=== PATIENT | female | born 1940 | race Caucasian/White ===

== ENCOUNTER → 2018-02-20 11:03 | Outpatient (CLI) | payer MEDICARE, OTHER, SELFPAY ==
--- NOTE | 2018-02-20 11:09 | DI.RAD.S_ITS ---
PROCEDURE: PAIN L/SI FACET INJ/BLK 1STL INDICATIONS: bilateral L5 -S1 facet joint injection FINDINGS: Fluoroscopic spot filming was performed to verify placement of spinal needles at the L5-S1 right and left side levels, as also labeled on the films. Appropriate location(s) of the needle tip(s) was confirmed by injection of iodinated contrast. IMPRESSION: Bilateral successful L5-S1 facet joint localization. Dictated by: Romulo Werner M.D. on 02/20/2018 at 13:22 Approved by: Romulo Werner M.D. on 02/20/2018 at 13:23
[2018-02-20 11:45] VITALS: BP 155/68; PULSE 68; RESP 16; TEMP 36.1; O2SAT 99
--- NOTE | 2018-02-20 12:07 | PM.PROC.1 ---
Procedures Date/Time Date of procedure: 02/20/18 Time of procedure: 12:30 General Procedure description: PREOP DIAGNOSIS 1. FACET ARTHROPATHY, 2. AXIAL LBP, 3. MULTILEVEL DDD, POST OP DIAGNOSIS 1. FACET ARTHROPATHY, 2. AXIAL LBP, 3. MULTILEVEL DDD, PROCEDURES 1. FLUORSCOPICALLY GUIDED CONTRAST CONTROLLED FACET JOINT INJECTIONS BILATERAL L5/S1 PHUSICIAN: DO TAMIA Do Kaela is referred by Dr. Hines for treatment of Axial LBP FINDINGS Multilevel Facet Arthropathy with Clinically significant axial LBP DESCRIPTION OF PROCEDURE Fluoroscopically guided, contrast-controlled bilateral L5/S1 facet joint injections. Following denial of allergy and review of potential side effects and complications, including, but not necessarily limited to, infection, allergic reaction, local tissue breakdown, stroke, temporary or permanent nerve injury, paralysis, and possible , the patient indicated that the patient understood and agreed to proceed. An informed consent document was signed by the patient, witnessed by a nurse, and placed in the patient's chart. Additionally, other treatment options including medications, modalities, and physical therapy were reviewed with the patient. In the prone position, following sterile prep and drape of the lumbar region, the posterior aspect of the L5/S1 facet joints were identified fluoroscopically. The skin was anesthetized via a 25-gauge 1.5-inch needle with 1% lidocaine solution into the corresponding facet joints. At this point, a 22-gauge 5-inch spinal needle was atraumatically introduced and advanced under fluoroscopic guidance into the corresponding facet joints. Following negative aspiration, injections of approximately 0.2-cc of Isovue 200 confirmed interarticular placement without vascular uptake. The identical procedure was then performed at the L5/S1 facet joints on the left. Radiological data, including multiple fluoroscopic views of the lumbosacral spine, reveal a spinal needle at the L5/S1 facet joints bilaterally. Subsequent views show flow of contrast material both superiorly and inferiorly within the joint space without vascular or intrathecal uptake. At this point, a total of 0.5 cc including a mixture of 0.25 cc Marcaine and 0.25 cc betamethasone was injected without complication into each of the corresponding facet joints. The patient was then transferred to the recovery area where they were observed for an appropriate period of time after the injection. The patient reported a VAS score of 7 prior to the procedure and a post-procedure VAS of 0. Total Fluoroscopy Time: 21.0 seconds POST OP INSTRUCTIONS The patient was provided a Pain Log to continue to record their response to the target-specific procedure prior to follow-up visit with their referring physician. Additionally, specific post-injection care instructions and a contact number to our office were provided if concerns arise regarding possible complications associated with the procedure are suspected. Irwin Merino DO Complications: none
[2018-02-20 12:19] VITALS: BP 129/72; PULSE 73; RESP 16; O2SAT 99
[2018-02-20 12:24] VITALS: BP 152/80; PULSE 74; O2SAT 99
[2018-02-20 12:46] VITALS: BP 123/74; PULSE 76; RESP 16; O2SAT 100
== END ==
PROVIDERS: Family Provider Family Medicine; PCP Family Medicine; Visit Provider Physical Medicine & Rehabilitation
DX: M46.86 Other specified inflammatory spondylopathies, lumbar region (principal); M51.36 Other intervertebral disc degeneration, lumbar region; Z98.1 Arthrodesis status; M96.1 Postlaminectomy syndrome, not elsewhere classified; M47.816 Spondylosis without myelopathy or radiculopathy, lumbar region
CPT/HCPCS: 64493; J0702

== ENCOUNTER 2018-03-13 07:43 | Outpatient (CLI) | payer MEDICARE, OTHER, SELFPAY ==
--- NOTE | 2018-03-13 07:45 | DI.RAD.S_ITS ---
PROCEDURE: PAIN L/SI FACET INJ/BLK 1STL INDICATIONS: 77 year-old female undergoing bilateral L5-S1 nerve root injections. FINDINGS: Fluoroscopic spot filming was performed to verify placement of spinal needles at the right and left L5-S1 level(s), as labeled on the films. Appropriate location(s) of the needle tip(s) was confirmed by injection of iodinated contrast. Bilateral posterior lumbar spine fixation hardware is present. IMPRESSION: Fluoroscopic guidance for bilateral L5-S1 nerve root injections. Dictated by: John Page M.D. on 03/13/2018 at 17:31 Approved by: John Page M.D. on 03/13/2018 at 17:31
[2018-03-13 08:17] VITALS: BP 122/70; PULSE 86; RESP 18; TEMP 36.3; O2SAT 99
--- NOTE | 2018-03-13 08:49 | PM.PROC.1 ---
Procedures Date/Time Date of procedure: 03/13/18 Time of procedure: 08:50 General Procedure description: POST OP DIAGNOSIS 1. FACET ARTHROPATHY PROCEDURES 1. BILATERAL L5 AND S1 MB BLOCKS PHYSICIAN: DO TAMIA Do is referred by Dr. Hiens for treatment of Bilateral Axial LBP. DESCRIPTION OF PROCEDURE Fluoroscopically guided, contrast-controlled bilateral L5 AND S1 medial branch blocks with 0.5cc of 0.5% Marcaine. Following denial of allergy and review of potential side effects and complications, including, but not necessarily limited to, infection, allergic reaction, local tissue breakdown, nerve injury, paralysis, stroke and possible , the patient indicated that the patient understood and agreed to proceed. An informed consent document was signed by the patient, witnessed by a nurse, and placed in the patient's chart. In the prone position, following sterile prep and drape of the lumbar region, the right L3, L4 AND L5 anatomical location of the medial branch of the dorsal ramus was identified fluoroscopically. Subsequently an anesthetic skin wheal using 1% lidocaine solution was initiated at each of the anatomical spots. Subsequently then a 22-gauge 3.5-inch spinal needle was atraumatically introduced and advanced under fluoroscopic guidance at each of the corresponding sites at the right L5 AND S1 MB. After negative aspiration, 0.2 cc of Isovue 200 was injected, confirming placement without vascular or intrathecal uptake. Subsequently then 0.5 cc of 0.5% Marcaine solution was injected at each of the corresponding sites at the Right L5 and S1 medial branch locations. The identical procedure was replicated on the left. The patient tolerated the procedure well without signs or symptoms of complications. Post-procedure, the patient was monitored initiating provocative activities to measure the amount of relief from block of the facetogenic pain. The patient reported a VAS of 7 prior to the procedure and a post-procedure VAS of 1. It has been a pleasure to assist in the diagnostic and therapeutic care of your patient. Total Fluoroscopy Time: 24.8 seconds Total Conscious Sedation Time: 24min POST OP INSTRUCTIONS The patient was provided with a Pain Log to complete over the next several hours and subsequent days prior to the patient's follow up with the ordering physician. If the patient has mechanical design engineer products relief to the solution applied, then they may be a candidate for medial branch rhizotomy. The patient is aware, was provided, once again, with a Pain Log and will follow up with the referring physician for review and clinical correlation Irwin Merino DO Complications: none
[2018-03-13 08:50] VITALS: BP 147/84; PULSE 84; RESP 20; O2SAT 99
[2018-03-13 09:00] VITALS: BP 138/74; PULSE 85; RESP 20; O2SAT 97
[2018-03-13 09:05] VITALS: BP 165/89; PULSE 86; RESP 20; O2SAT 99
[2018-03-13 09:10] VITALS: BP 134/74; PULSE 86; RESP 20; O2SAT 98
[2018-03-13] MEDS: LIDOCAINE 1% 30 ML INJ INJ (09:10)
[2018-03-13] MEDS: IOPAMIDOL 15 ML VIAL 3 ML INJ (09:10)
[2018-03-13] MEDS: BUPIVACAINE 0.5% (PF) 30 ML VIAL 5 ML INJ (09:10)
[2018-03-13] MEDS: BETAMETHASONE 30 MG/5 ML MDV 12 MG INJ (09:10)
--- NOTE | 2018-03-13 09:18 | P.PCN_ITS ---
Procedures Date/Time Date of procedure: 03/13/18 Time of procedure: 08:50 General Procedure description: POST OP DIAGNOSIS 1. FACET ARTHROPATHY PROCEDURES 1. BILATERAL L5 AND S1 MB BLOCKS PHYSICIAN: DO TAMIA Do is referred by Dr. Hines for treatment of Bilateral Axial LBP. DESCRIPTION OF PROCEDURE Fluoroscopically guided, contrast-controlled bilateral L5 AND S1 medial branch blocks with 0.5cc of 0.5% Marcaine. Following denial of allergy and review of potential side effects and complications, including, but not necessarily limited to, infection, allergic reaction, local tissue breakdown, nerve injury, paralysis, stroke and possible , the patient indicated that the patient understood and agreed to proceed. An informed consent document was signed by the patient, witnessed by a nurse, and placed in the patient's chart. In the prone position, following sterile prep and drape of the lumbar region, the right L3, L4 AND L5 anatomical location of the medial branch of the dorsal ramus was identified fluoroscopically. Subsequently an anesthetic skin wheal using 1% lidocaine solution was initiated at each of the anatomical spots. Subsequently then a 22-gauge 3.5-inch spinal needle was atraumatically introduced and advanced under fluoroscopic guidance at each of the corresponding sites at the right L5 AND S1 MB. After negative aspiration, 0.2 cc of Isovue 200 was injected, confirming placement without vascular or intrathecal uptake. Subsequently then 0.5 cc of 0.5% Marcaine solution was injected at each of the corresponding sites at the Right L5 and S1 medial branch locations. The identical procedure was replicated on the left. The patient tolerated the procedure well without signs or symptoms of complications. Post-procedure, the patient was monitored initiating provocative activities to measure the amount of relief from block of the facetogenic pain. The patient reported a VAS of 7 prior to the procedure and a post-procedure VAS of 1. It has been a pleasure to assist in the diagnostic and therapeutic care of your patient. Total Fluoroscopy Time: 24.8 seconds Total Conscious Sedation Time: 24min POST OP INSTRUCTIONS The patient was provided with a Pain Log to complete over the next several hours and subsequent days prior to the patient's follow up with the ordering physician. If the patient has speech scientist relief to the solution applied, then they may be a candidate for medial branch rhizotomy. The patient is aware , was provided, once again, with a Pain Log and will follow up with the referring physician for review and clinical correlation Irwin Merino DO Complications: none
== END 2018-03-13 09:51 | disposition home or self-care (01) ==
PROVIDERS: Family Provider Family Medicine; PCP Family Medicine; Visit Provider Physical Medicine & Rehabilitation
DX: M47.816 Spondylosis without myelopathy or radiculopathy, lumbar region (principal)
CPT/HCPCS: 64493; J0702

== ENCOUNTER 2018-05-15 07:44 | Outpatient (CLI) | payer MEDICARE, OTHER, SELFPAY ==
[2018-05-15] VITALS (16 sets, daily range): BP systolic 64–145; BP diastolic 41–107; PULSE 63–100; RESP 15–17; TEMP 36.3; O2SAT 92–100
--- NOTE | 2018-05-15 07:45 | DI.RAD.S_ITS ---
PROCEDURE: PAIN L/S MED/LAT N RFA BILAT INDICATIONS: Recalcitrant facet arthropathy status post lumbar fusion FINDINGS: Fluoroscopic spot filming was performed to verify placement of spinal needles at the left L4-5 and left L5-S1 level(s), as labeled on the films. Appropriate location(s) of the needle tip(s) was confirmed by injection of iodinated contrast. IMPRESSION: Successful needle localization for left sided RFA procedure at the left L4-5 and left L5-S1 levels. Dictated by: Romulo Werner M.D. on 05/15/2018 at 13:27 Approved by: Romulo Werner M.D. on 05/15/2018 at 13:36
--- NOTE | 2018-05-15 08:45 | PM.PROC.1 ---
Procedures Date/Time Date of procedure: 05/15/18 Time of procedure: 08:45 General Procedure description: Procedure Note PREOP DIAGNOSIS 1. RECALCITRANT FACET ARTHROPATHY, POST OP DIAGNOSIS 1. RECALCITRANT FACET ARTHROPATHY, PROCEDURES 1. BILATERAL L5 MEDIAL BRANCH RADIOFREQUENCY NEUROTOMY AND BILATERAL S1 DORSAL RAMUS BRANCH RADIOFREQUENCY NEUROTOMY. PHYSICIAN: Irwin Merino, DO INDICATIONS Kaela is referred by for treatment of facet arthropathy. DESCRIPTION OF PROCEDURE Bilateral L5 medial branch radiofrequency neurotomy and bilateral S1 dorsal ramus branch radiofrequency neurotomy under fluoroscopy with conscious sedation. The patient is well known to this clinic having undergone previous facet injections with good but temporary relief. The patient has experienced appropriate, concordant relief with previous facet and median branch blocks but the patient's pain has been recalcitrant to further conservative measures. Therefore, based upon the patient's relief and persistent symptoms, the patient is considered an appropriate candidate for facet rhizotomy. All of the patient's questions regarding the risks versus benefits of the procedure, including, but not limited to, bleeding, infection, temporary as well as lasting nerve injury, paralysis, stroke, and , as well treatment alternatives were answered to satisfaction. After obtaining informed consent, denial of pertinent drug allergies, as well as being made aware of the potential risks of bleeding, infection, spinal cord trauma, paralysis, temporary and permanent nerve damage, seizure, stroke, and possible , the patient was brought to the fluoroscopy suite and positioned prone on the fluoroscopy table. The lumbar region was prepped with Betadine and covered with a fenestrated drape in the usual sterile fashion. Appropriate monitors applied including pulse oximeter, pulse, and blood pressure for regular monitoring throughout the procedure. After review of previous anaesthesic history and IV conscious sedation the patient was deemed safe to proceed with todays procedure with IV conscious sedation as ASA class II designation. Safety time-out was performed to confirm patient ID, procedure to be performed and site of procedure. IV sedation was accomplished with a combination of 4mg was administered by the RN after DO order, titrated to patient comfort during the course of the procedure while the patient remained responsive to all verbal commands. After local infiltration using 1% lidocaine, under fluoroscopic guidance, a 10-cm RF insulated needle with a 10-mm active tip was positioned parallel to the junction of the bilateral sacral ala and the superior articulating process where the S1 dorsal ramus resides. Needle placement was confirmed with motor stimulation of .5v on the right; motor stimulation of .6v on the left, which produced local stimulation without radicular component. The stimulation was then increased to 1.5v with, once again, only local multifidus stimulation without radicular component. This was then followed by two discreet lesions performed at 80 degrees Celsius for 90 seconds each. The needle was then removed and the identical procedure was performed along the length of the bilateral L5 medial branch with motor stimulation at .7v on the right; motor stimulation at .6v on the left. The procedure tolerated the procedure well without signs or symptoms of complications prior to transfer to the recovery area continued monitoring without incident. The patient was then transferred to the recovery area where they were observed for an appropriate period of time after the injection. The patient reported a VAS score of 9 prior to the procedure and a post-procedure VAS of 0. Total Fluoroscopy Time: 32.1 seconds Total Conscious Sedation Time: 46min POST OP INSTRUCTIONS The patient was provided a Pain Log to continue to record the patient's response to the target-specific procedure prior to the patient's follow-up visit with the referring physician. Additionally, specific post-injection care instructions and a contact number to our office were provided if concerns arise regarding possible complications associated with the procedure are suspected. Irwin Merino DO Complications: none
--- NOTE | 2018-05-15 08:49 | P.PCN_ITS ---
Procedures Date/Time Date of procedure: 05/15/18 Time of procedure: 08:45 General Procedure description: Procedure Note PREOP DIAGNOSIS 1. RECALCITRANT FACET ARTHROPATHY, POST OP DIAGNOSIS 1. RECALCITRANT FACET ARTHROPATHY, PROCEDURES 1. BILATERAL L5 MEDIAL BRANCH RADIOFREQUENCY NEUROTOMY AND BILATERAL S1 DORSAL RAMUS BRANCH RADIOFREQUENCY NEUROTOMY. PHYSICIAN: Irwin Merino, DO INDICATIONS Kaela is referred by for treatment of facet arthropathy. DESCRIPTION OF PROCEDURE Bilateral L5 medial branch radiofrequency neurotomy and bilateral S1 dorsal ramus branch radiofrequency neurotomy under fluoroscopy with conscious sedation. The patient is well known to this clinic having undergone previous facet injections with good but temporary relief. The patient has experienced appropriate, concordant relief with previous facet and median branch blocks but the patient's pain has been recalcitrant to further conservative measures. Therefore, based upon the patient's relief and persistent symptoms, the patient is considered an appropriate candidate for facet rhizotomy. All of the patient' s questions regarding the risks versus benefits of the procedure, including, but not limited to, bleeding, infection, temporary as well as lasting nerve injury, paralysis, stroke, and , as well treatment alternatives were answered to satisfaction. After obtaining informed consent, denial of pertinent drug allergies, as well as being made aware of the potential risks of bleeding, infection, spinal cord trauma, paralysis, temporary and permanent nerve damage, seizure, stroke, and possible , the patient was brought to the fluoroscopy suite and positioned prone on the fluoroscopy table. The lumbar region was prepped with Betadine and covered with a fenestrated drape in the usual sterile fashion. Appropriate monitors applied including pulse oximeter, pulse, and blood pressure for regular monitoring throughout the procedure. After review of previous anaesthesic history and IV conscious sedation the patient was deemed safe to proceed with todays procedure with IV conscious sedation as ASA class II designation. Safety time-out was performed to confirm patient ID, procedure to be performed and site of procedure. IV sedation was accomplished with a combination of 4mg was administered by the RN after DO order , titrated to patient comfort during the course of the procedure while the patient remained responsive to all verbal commands. After local infiltration using 1% lidocaine, under fluoroscopic guidance, a 10- cm RF insulated needle with a 10-mm active tip was positioned parallel to the junction of the bilateral sacral ala and the superior articulating process where the S1 dorsal ramus resides. Needle placement was confirmed with motor stimulation of .5v on the right; motor stimulation of .6v on the left, which produced local stimulation without radicular component. The stimulation was then increased to 1.5v with, once again, only local multifidus stimulation without radicular component. This was then followed by two discreet lesions performed at 80 degrees Celsius for 90 seconds each. The needle was then removed and the identical procedure was performed along the length of the bilateral L5 medial branch with motor stimulation at .7v on the right; motor stimulation at .6v on the left. The procedure tolerated the procedure well without signs or symptoms of complications prior to transfer to the recovery area continued monitoring without incident. The patient was then transferred to the recovery area where they were observed for an appropriate period of time after the injection. The patient reported a VAS score of 9 prior to the procedure and a post- procedure VAS of 0. Total Fluoroscopy Time: 32.1 seconds Total Conscious Sedation Time: 46min POST OP INSTRUCTIONS The patient was provided a Pain Log to continue to record the patient's response to the target-specific procedure prior to the patient's follow-up visit with the referring physician. Additionally, specific post-injection care instructions and a contact number to our office were provided if concerns arise regarding possible complications associated with the procedure are suspected. Irwin Merino DO Complications: none
[2018-05-15] MEDS: MIDAZOLAM 5 MG/5 ML VIAL IV (09:04)
[2018-05-15] MEDS: LIDOCAINE 1% 20 ML INJ INJ (09:30)
[2018-05-15] MEDS: BUPIVACAINE 0.5% (PF) VIAL 5 ML INJ (09:30)
[2018-05-15] MEDS: ONDANSETRON 4 MG/2 ML INJ IV (09:44)
[2018-05-15] MEDS: SODIUM CHLORIDE 0.9% 1,000 ML 1000 ML IV (10:40)
== END 2018-05-15 11:30 ==
LOC: RAD 07:45
PROVIDERS: Family Provider Family Medicine; PCP Family Medicine; Visit Provider Physical Medicine & Rehabilitation
DX: M47.816 Spondylosis without myelopathy or radiculopathy, lumbar region (principal); M48.061 Spinal stenosis, lumbar region without neurogenic claudication; Z98.1 Arthrodesis status
CPT/HCPCS: 64635; 99152; 99153; J2250; J2405

== ENCOUNTER → 2018-08-30 17:25 | Outpatient (CLI) | payer MEDICARE, OTHER, SELFPAY ==
--- NOTE | 2018-08-30 17:28 | DI.MRI.S_ITS ---
PROCEDURE: MR CERVICAL SPINE WO CON INDICATIONS: radiculopathy TECHNIQUE: Noncontrast sagittal T1 spin echo and T2 fast spin echo, sagittal STIR, foraminal oblique sagittal T2 fast spin echo, and axial gradient echo or T2 fast spin echo through the cervical spine. COMPARISON: None. FINDINGS: Image quality: Excellent. Alignment and Curvature: There is loss of normal cervical lordosis. There is mild, grade 1 anterolisthesis of C4 on C5. Bone Marrow: Marrow demonstrates normal overall signal. There is mild reactive signal within the endplates adjacent to the C4-C5, C5-C6, C6-C7, and C7-T1 intervertebral discs. Spinal Cord: Visualized spinal cord has normal size and signal. No cerebellar tonsillar herniation. Paraspinous Soft Tissues: No paravertebral masses. Prevertebral soft tissues are normal in thickness. C2-C3: Moderate disc desiccation. Mild diffuse disc bulge. Mild bilateral facet hypertrophy. Mild canal stenosis. Mild right foraminal stenosis. No left foraminal stenosis. C3-C4: Moderate disc desiccation. Mild diffuse disc bulge. Mild bilateral facet and uncovertebral hypertrophy. Mild canal stenosis. Mild bilateral foraminal stenosis. C4-C5: Moderate disc height loss and desiccation. Moderate diffuse disc bulge/osteophyte. Mild bilateral facet and uncovertebral hypertrophy. Severe canal stenosis. Mild cord flattening. Severe right and moderate left foraminal stenosis. C5-C6: Moderate disc height loss and desiccation. Moderate diffuse disc bulge. Mild bilateral facet and uncovertebral hypertrophy. Severe canal stenosis. Mild cord flattening. Moderate foraminal stenosis bilaterally. C6-C7: Moderate disc and loss and desiccation. Moderate diffuse disc bulge. Mild bilateral facet and uncovertebral hypertrophy. Severe canal stenosis. Mild cord flattening. Moderate foraminal stenosis bilaterally. C7-T1: Moderate disc height loss and desiccation. Moderate diffuse disc bulge. Mild bilateral facet and uncovertebral hypertrophy. Moderate to severe canal stenosis. Mild left and moderate right foraminal stenosis. IMPRESSION: 1. Multilevel degenerative disc and facet disease, as well as uncovertebral hypertrophy. 2. Multilevel canal stenoses, worst at C4-C5, C5-C6, and C6-C7, where there is mild cord flattening present. 3. Multilevel foraminal stenoses, worse on the right at C4-C5, where there is severe foraminal stenosis present. Dictated by: Lucrecia Javier M.D. on 09/02/2018 at 8:25 Approved by: Lucrecia Javier M.D. on 09/02/2018 at 8:35
== END ==
PROVIDERS: PCP Internal Medicine; Visit Provider Physical Medicine & Rehabilitation
DX: M50.11 Cervical disc disorder with radiculopathy, high cervical region (principal); M48.02 Spinal stenosis, cervical region
CPT/HCPCS: 72141

== ENCOUNTER 2018-09-10 09:37 | Outpatient (CLI) | payer MEDICARE, OTHER, SELFPAY ==
[2018-09-10] VITALS (12 sets, daily range): BP systolic 83–166; BP diastolic 49–99; PULSE 81–109; RESP 16–18; O2SAT 94–99
--- NOTE | 2018-09-10 09:39 | DI.RAD.S_ITS ---
PROCEDURE: PAIN C/T INTERLAMINAR INJECT INDICATIONS: RADICULOPATHY FINDINGS: Fluoroscopic spot filming was performed to verify placement of spinal needles at the C6-C7 level(s), as labeled on the films. Appropriate location(s) of the needle tip(s) was confirmed by injection of iodinated contrast. Dictated by: Yifan Yousif M.D. on 09/11/2018 at 9:03 Approved by: Yifan Yousif M.D. on 09/11/2018 at 9:04
--- NOTE | 2018-09-10 09:39 | DI.RAD.S_ITS ---
PROCEDURE: XR CERVICAL SPINE 4V OR 5V INDICATIONS: Cervical radiculopathy TECHNIQUE: 5 views of the cervical spine acquired. COMPARISON: None. FINDINGS: Bones: No fractures or dislocations to the T1-2 level. There is straightening of the normal cervical lordosis. Degenerative endplate changes are noted at C4-5, C5-6 and C6-7 levels. Bilateral neural foramina narrowing at C5-6 and C6-7 levels are seen on oblique images. Soft tissues: No prevertebral soft tissue swelling. IMPRESSION: Degenerative disc disease in mid to lower cervical spine with suggestion of bilateral neural foramina narrowing at C5-6 and C6-7 levels. No acute compression fracture or spondylolisthesis. Dictated by: Sheng Uriostegui M.D. on 09/10/2018 at 12:00 Approved by: Sheng Uriostegui M.D. on 09/10/2018 at 12:01
[2018-09-10] MEDS: MIDAZOLAM 5 MG/5 ML VIAL IV (10:55)
[2018-09-10] MEDS: LIDOCAINE 1% 20 ML INJ 5 ML INJ (11:03)
[2018-09-10] MEDS: IOPAMIDOL 15 ML VIAL 3 ML INJ (11:03)
--- NOTE | 2018-09-10 11:12 | PC.NURSE ---
ASSISTING PT OFF TABLE AND TRANSPORTING TO POST PROC AREA IN STABLE CONDITION
--- NOTE | 2018-09-10 11:14 | PM.PROC.1 ---
Procedures Date/Time Date of procedure: 09/10/18 Time of procedure: 11:14 General Procedure description: PREOP DIAGNOSIS 1. CERVICAL STENOSIS, 2. CERVICAL HNP WITH UPPER EXTREMITY RADICULAR FEATURES, POST OP DIAGNOSIS 1. CERVICAL STENOSIS, 2. CERVICAL HNP WITH UPPER EXTREMITY RADICULAR FEATURES, PROCEDURES 1. FLUORSCOPICALLY GUIDED CONTRAST CONTROLLED INTERLAMINAR EPIDURAL STEROID INJECTION - C6/7 TL RICHELLE PHYSICIAN: Irwin Merino, DO INDICATIONS Kaela is referred by Dr. Bobo for treatment of Cervical HNP with Upper Extremity Paresthesias. FINDINGS Cervical Stenosis due to disc deterioration and nerve root irritation and nerve root irritation DESCRIPTION OF PROCEDURE Fluoroscopically guided, contrast-controlled C6/7 translaminar epidural steroid injection with conscious sedation. Following denial of allergy and review of potential side effects and complications, including, but not necessarily limited to, infection, allergic reaction, local tissue breakdown, temporary as well as permanent nerve injury, stroke, paralysis, and possible , the patient indicated that patient understood and agreed to proceed. An informed consent document was signed by the patient, witnessed by a nurse, and placed in the patient's chart. Additionally, other treatment options including modalities, medications, and physical therapy were reviewed with the patient. After review of previous anaesthesic history and IV conscious sedation the patient was deemed safe to proceed with todays procedure with IV conscious sedation as ASA class II designation. Safety time-out was performed to confirm patient ID, procedure to be performed and site of procedure. IV sedation was accomplished with a combination of 3mg of Versed administered by the RN after DO order, titrated to patient comfort during the course of the procedure while the patient remained responsive to all verbal commands. In the prone position, following sterile prep and drape of the cervical region, the C6/7 translaminar space was identified fluoroscopically. The skin was anesthetized via a 25-gauge 1.5-inch needle with 1% lidocaine solution. At this point, a 25-gauge, 2.5-inch short bevel spinal needle was atraumatically introduced and advanced under fluoroscopic guidance into epidural space at the C6/7 translaminar space. Depth was confirmed on lateral view. Radiological data, including multiple fluoroscopic views of the cervical spine, reveal a spinal needle at the C6/7 translaminar space. Lateral views then show placement of the needle in the epidural space. Subsequent views show contrast material flowing superiorly and inferiorly in the epidural space. DSA fluoroscopy with live contrast injection, once again, confirmed no vascular or intrathecal uptake. At this point, using loss of resistance technique with saline and air, the epidural space was entered. Following negative aspiration, injection of approximately 1.5 cc of Isovue-200 with live fluoroscopy in the AP view confirmed epidural flow in the epidural space without vascular or intrathecal uptake observed. Subsequently, a test dose of 1 cc of 1% lidocaine solution was injected and patient was observed for two minutes without signs or symptoms of complications, including abdominal pain, shortness of breath, bilateral upper or lower extremity weakness, nausea and vomiting, prior to steroid injection. At this point, 3 cc or 30 mg of dexamethasone was then injected without incident. The patient tolerated the procedure well without signs or symptoms of complications prior to being transferred to the recovery area for further monitoring, The patient was then transferred to the recovery area where they were observed for an appropriate period of time after the injection. The patient reported a VAS score of 6 prior to the procedure and a post-procedure VAS of 0. Total Fluoroscopy Time: 37.0 seconds Total Conscious Time: 24min POST OP INSTRUCTIONS The patient was provided a Pain Log to continue to record their response to the target-specific procedure prior to follow-up visit with the referring provider. Additionally, specific post-injection care instructions and a contact number to our office were provided if concerns arise regarding possible complications associated with the procedure are suspected. Irwin Merino, Complications: none
[2018-09-10] MEDS: DEXAMETHASONE 10 MG/ML VIAL 30 MG INJ (11:24)
--- NOTE | 2018-09-10 12:39 | PC.NURSE ---
pt had episode in xray where she got dizzy after being on the table. she reports she's had that in the past. checked blood sugar/115. pt doing better after returned to pre procedure room. dr. denny and Millie RN aware. pt able to have procedure. tolerated well. pt able to ambulate after procedure prior to discharge and doing well. She took wheelchair to car with son Romulo.
--- NOTE | 2018-09-11 11:31 | PC.NURSE ---
Called pt for Follow Up and she is doing great. She only had one question she forgot to ask Dr. Merino and that was whether or not to continue PT. I will verify that with him and get back with the patient.
== END 2018-09-10 12:01 ==
LOC: RAD 09:38
PROVIDERS: PCP Internal Medicine; Visit Provider Physical Medicine & Rehabilitation
DX: M48.02 Spinal stenosis, cervical region (principal); M50.123 Cervical disc disorder at C6-C7 level with radiculopathy; R20.2 Paresthesia of skin
CPT/HCPCS: 62321; 72050; 82962; 99152; J1100; J2250

== ENCOUNTER 2019-03-21 08:26 | Inpatient (IN) | payer MEDICARE, OTHER, SELFPAY ==
[2019-03-18 13:32] VITALS: BMI 41.7
[2019-03-21] VITALS (20 sets, daily range): BP systolic 119–173; BP diastolic 52–101; PULSE 71–105; RESP 12–21; TEMP 35.7–36.9; O2SAT 91–99; BMI 41.2
--- NOTE | 2019-03-21 | DI.RAD.S_ITS ---
PROCEDURE: XR CERVICAL SPINE 2V OR 3V INDICATIONS: ACDF POSTERIOR FUSION TECHNIQUE: 3 view(s) of the cervical spine were acquired. COMPARISON: [facility], , XR CERVICAL SPINE 4V OR 5V, 09/10/2018, 9:47. FINDINGS: 3 fluoroscopy images demonstrate ACDF C4-C5, C5-C6 and C6-C7. There is also posterior fusion. IMPRESSION: Fusion C4-C5, C5-C6 and C6-C7. Dictated by: Roshan Petty M.D. on 03/21/2019 at 17:40 Approved by: Roshan Petty M.D. on 03/21/2019 at 17:43
[2019-03-21] MEDS: LACTATED RINGERS 1,000 ML 42 ML IV ×2 (09:00→13:51)
--- NOTE | 2019-03-21 09:19 | PM.PREOP ---
Pre-operative Note Interval Note History & Physical reviewed/Exam performed by Physician: Yes Changes to H&P: No
[2019-03-21] MEDS: CEFAZOLIN 2 GM/100 ML FROZ.PIGGY IV ×2 (10:15→18:22)
--- NOTE | 2019-03-21 11:00 | SUR.OPER ---
Prone on padded OR bed, head in foam head support, gel chest rolls, gel pad under knees, pillow under lower legs, toes free of pressure, arms padded and tucked side at <90 degrees abduction. Safety belt at thigh. tape from crest of shouleders to foot of bed to provide traction.
--- NOTE | 2019-03-21 11:02 | SUR.OPER ---
Supine on padded OR bed, head on pillow, bilateral arms padded and tucked at side, legs uncrossed, safety belt at thigh, tape over blanket over lower legs .
[2019-03-21] MEDS: ACETAMINOPHEN 1,000 MG/100 ML VIAL IV (12:19)
[2019-03-21] MEDS: THROMBIN (RECOMBINANT) 5,000 UNIT VIAL 5000 UNIT TOP (12:21)
[2019-03-21] MEDS: SODIUM CHLORIDE 0.9% 1,000 ML, GENTAMICIN 80 MG IRR (12:21)
[2019-03-21] MEDS: BUPIVACAINE 0.5% W/ EPI (PF) VIAL 30 ML INJ (12:22)
--- NOTE | 2019-03-21 13:38 | P.OP_ITS ---
Operative Date/Time/Diagnoses Date of procedure: 03/21/19 Time of procedure: 13:35 Pre-op diagnosis: Cervical stenosis with myelopathy Post-op diagnosis: same Procedure & Clinicians Procedure: C4-5, C5-6, C6-7 anterior cervical diskectomy and fusion with cages C4-5, C5-6, C6-7 posterior instrumented fusion Iliac crest bone graft Use of microscope Same procedure as scheduled: Yes Indications: [age] year old female with intractable pain from myelopathy. They had failed conservative management and requested operative intervention. Risks and benefits of surgery were discussed and appropriate consents were obtained. Surgeon: Dl Jules Solar Sales Representative And Assessor: Magnolia Feliciano Anesthesia Type: General Operative Notes Findings: None Closure Type: primary Specimen(s): none sent Prosthetic devices, grafts, tissues, transplants, or devices: [place] DTrax posteriorly Dayne KENDAL-C anteriorly Applied: catheter Estimated Blood Loss (mL): 10 Procedure in detail: The patient was brought to the operating room and intubated on the stretcher. Time-out was performed. There were then rolled over to the well-padded prone position on chest rolls. Two views of fluoroscopy were taken to confirm our positioning. The neck was then prepped and draped in the standard sterile fashion. Preoperative antibiotics were given. Using fluoroscopy, we localized for planned incisions. Two small 8 mm horizontal incisions were made over the lateral masses approximately 2 fingers below our planned surgical site. We then spread down and opened up the fascia. Then percutaneously placed our Steinmann pin through the soft tissue into the facet joint at C4-5 under fluoroscopic visualization. We used the reamer to decorticate the lateral masses compromising the facet. A trocar was placed over the Steinmann pin into the facet and then the pin was removed. We used a rasp to decorticate the facet joint itself. We then filled the DTrax cage with Primagen bone graft and impacted it into the facet joint at C4-5 under fluoroscopic guidance. We then took the lateral mass screw and placed it through the cage and then into the lateral mass for the posterior screw fixation. The liner inserter was removed and we packed more bone graft down the trocar covering the lateral mass. This was done bilaterally. This completed the instrumented posterior fusion at C4-5. We then went to the next levels at C5-6 and C6-7. The same procedure was performed with preparation, placement of the cage with bone graft, and placement of the screw for bilateral instrumented posterior fusion at C5-6 and C6-7. The wounds were irrigated. The skin was closed and a sterile dressing placed. The patient was then rolled over to the table in the supine position and positioned for the anterior surgery. The arms were tucked and a shoulder roll was placed. The neck and left iliac crest were prepped and draped in the standard sterile fashion. A 3 cm oblique incision was made on the left side of the neck along the skin fold. Bovie was used to split the platysma. We then bluntly dissected a standard anterolateral approach to the precervical fascia. A marker was placed and x-ray taken to confirm our positioning. We then used the Bovie to the subperiosteally lift up the longus colli muscles. Self-retaining retractors were placed. We then placed Clinton pins and distracted across the C6-7 disc space. We brought in the microscope. A complete anterior discectomy was performed at C6-7 using a combination of scalpel, curettes, pituitaries, and Kerrison rongeurs. The bur was used to take down the posterior osteophytes as well as decorticate the disc space. We then released the PLL and used the Kerrison to remove any further posterior osteophytes and disc material. At the end a nerve hook could be swept cephalad caudally and out the neural foramen and everything was open. We trialed for our cages. A small stab incision was made over the left iliac crest. We placed a Jamshidi aspiration needle into the iliac crest and aspirated several mL of bone marrow graft. We then took our Dayne LDR KENDAL-C cage and packed it with Primagen, and mixed in the bone marrow aspirate. The cage was then placed into the disc space under fluoroscopic guidance. The 2 locking plates were placed through the cage for fixation. This completed the ACDF at C6-7. We then went to the next levels at C5-6 and then C4-5. Again a complete diskectomy was performed including taking down the PLL and posterior osteophytes and disc material. The endplates were prepped with a bur. We trialed and then packed our KENDAL-C cage with the bone graft and then placed into the disc space. The locking plates were placed as well. This completed the ACDF at C5-6 and C4- 5. Final x-rays were taken. The wound was copiously irrigated. There was no bleeding. The carotid was bleeding nicely. The platysma was closed. The superficial skin were closed. A Steri-Strip was placed over the iliac crest incision. Sterile dressings were placed. The patient was then extubated and brought to the recovery room without complication. Complications: none Condition: stable Disposition: PACU Plan for aftercare: Inpatient. Up with therapy. Soft collar for comfort.
[2019-03-21] MEDS: ONDANSETRON 4 MG/2 ML INJ IV (14:26)
[2019-03-21] MEDS: METOCLOPRAMIDE 10 MG/2 ML INJ 5 MG IV (14:35)
[2019-03-21] MEDS: KETOROLAC 30 MG/ML VIAL IV (14:57)
[2019-03-21] MEDS: APREPITANT 40 MG CAPSULE PO (15:19)
[2019-03-21] MEDS: LORazepam 2 MG/ML INJ 0.5 MG IV (15:27)
[2019-03-21] MEDS: INSULIN REGULAR 100 UNIT/ML 3 ML VIAL SUBCUT (15:54)
[2019-03-21] MEDS: LACTATED RINGERS 1,000 ML 125 ML IV (16:26)
--- NOTE | 2019-03-21 16:30 | SUR.PHASEI ---
Pt transferred to room 224 via bed with all belongings. Report given to KAYCE Unger prior to transfer. Pt's condition and last vital signs stable; see flowsheet documentation for details. KAYCE Unger to bedside upon arrival to room 224. Handoff assessment done together including report that pt's BG level was 183 and 4 units of subQ Humilin R given; orders to recheck BG within 1 hour. Cornel to assume care of pt at this time.
--- NOTE | 2019-03-21 16:36 | SLP.IPNOTE ---
Order received for screen/assessment re: ACDF surgery completed late today. Spoke with nursing re: voice swallow screen. Normally ST would not assess patient until after [address] is not available on weekends (only emergent pts); however, if pt is demonstrating coughing/choking with nursing swallow screen, then contact ST via rehab office ([phone])
--- NOTE | 2019-03-21 17:04 | PT.IPTN ---
Current Diagnoses Spinal stenosis, cervical region (03/21/19) Strain of muscle, fascia and tendon at neck level, initial encounter (03/21/19) Surgery Performed Operation Date: 03/21/19 10:15 Actual Procedures p C4-5,C5-6,C6-7 Cervical Fusion Anterior/Posterior Instru. & bone graft - Dl Jules MD Physical Therapy Treatment Note M3 PT-IP Subjective Start: 03/21/19 16:59 Freq: NEEDED Status: Active Protocol: Document 03/21/19 16:59 (Rec: 03/21/19 17:04 [id number]) Subjective Physical Therapy Visit Type Type Administrative Note Notes Per RN Cornel, pt has been feeling nauseated and lethargic since she arrived AC unit. Her BP also stays at 170s/90s. Recommended to put PT on hold for observation Physical Therapy Visit Comments Patient Comments Pt is currently deeply in sleep upon assessment.
[2019-03-21] MEDS: MORPHINE 2 MG/ML INJ IV (22:33)
[2019-03-22] VITALS (10 sets, daily range): BP systolic 110–144; BP diastolic 54–76; PULSE 63–72; RESP 16–20; TEMP 36.3–36.7; O2SAT 96–100
[2019-03-22] MEDS: LACTATED RINGERS 1,000 ML 125 ML IV (01:01)
[2019-03-22] MEDS: HYDROCODONE/ACET 5/325 TABLET 2 TAB PO (01:08)
[2019-03-22] MEDS: CEFAZOLIN 2 GM/100 ML FROZ.PIGGY IV (02:00)
--- NOTE | 2019-03-22 04:23 | PC.NURSE ---
Pt is AxOx3, Lung sounds clear bilaterally, and VSS. Pt has anterior and posterior dressings that are clean dry and intact. Pt denies nausea, has pain level 6, was given 2-5/325 tabs of hydrocodone for pain. SCD's are on, IS was given to patient and teaching was done and IS was encouraged through the night. Pt uses CPAP at home, Pt was on 2 liters O2 NC throught the night w/ 98% O2 sats. CMS is intact, pedal pulses strong.
--- NOTE | 2019-03-22 07:39 | PM.PNPO.1 ---
Subjective Date Patient Seen: 03/22/19 Time Patient Seen: 07:39 Interval history: She is doing well. The arm symptoms are tremendously better. She has pain in the neck and did require 1 dose of IV morphine overnight and a few instances of 2 [place] at a time. However she just feels like she only needs 1 pill at a time from here on out. Has not worked with speech therapy yet. She is having some difficulty swallowing but getting her breakfast down. Exam Vital Signs (past 8 hours): - 03/21/19 23:45 03/22/19 06:14 Temperature 98.0 F 98.1 F Pulse Rate 71 66 Respiratory Rate 18 16 Blood Pressure 119/63 110/54 L Pulse Oximetry 99 97 Oxygen Delivery Method Nasal Cannula Oxygen Flow Rate 2 Const Orientation: alert and oriented x3 Back/Spine/Pelvis Other: Dressings CDI. 5/5 motor both upper extremities Assessment & Plan Post-op Postoperative Procedures Operation Date: 03/21/19 10:15 Actual Procedures Side Surgeon p C4-5,C5-6,C6-7 Cervical Fusion Anterior/Posterior Instru. & bone graft Dl Jules MD Overall she is doing well. Work with speech therapy today. Anticipate probable discharge home tomorrow. Quality VTE Deep Vein Thrombosis/Pulmonary Embolism Present on Admission: No
[2019-03-22] MEDS: INSULIN ASPART 100 UNIT/ML INSULN PEN SUBCUT ×2 (08:34→17:39)
[2019-03-22] MEDS: HYDROCODONE/ACET 5/325 TABLET 1 TAB PO (08:36)
[2019-03-22] MEDS: ASPIRIN EC 81 MG TABLET PO (08:36)
[2019-03-22] MEDS: DOCUSATE 100 MG CAPSULE PO ×2 (08:36→22:04)
[2019-03-22] MEDS: METFORMIN HCL 500 MG TABLET PO (08:36)
--- NOTE | 2019-03-22 09:18 | PC.NURSE ---
Addendum entered by Reshma Monge R.N. 03/22/19 10:28: Pt awoke from a nap, feeling miserable. Pain to incisions area and right arm, refused prn pain med at this time. Moderately Nauseated, prn Zofran IV given at 1025, pt repositioned, soft collar placed back on. Refused foot SCD's until symptoms pass. Plan to remove urinary catheter prior to lunch. Original Note: Day Shift- Pt A&OX4, able to make needs known using call light, high fall risk precautions in place, bed alarm on. Rates 3/10 pressure to anterior and posterior neck, posterior upper back/shoulders. Pt requested to have 1 [place] tab instead of 2 with her PRN 0835 dose. Stating that 2 tabs felt too much. Pain to right arm significantly less than prior to surgery according to pt. Radial pulses palpable and strong, moderate strength and iron piler. Denies numbness or tingling. Posterior and anterior surgical dressing of gauze and tegaderm CDI. Soft collar in place this AM and pt requested removal for short time after breakfast. Pt encouraged to choose soft foods, small bites and chew food well. No difficulties swallowing food or pills one at a time this AM. Ate approx 15% of scrambled egg. Plan for garcia removal with PT session, pt agreeable and wants removal this AM.
[2019-03-22] MEDS: SODIUM CHLORIDE 0.9% FLUSH 10 ML IV ×2 (10:26→22:04)
[2019-03-22] MEDS: ONDANSETRON 4 MG/2 ML INJ IV (10:26)
[2019-03-22] MEDS: NITROGLYCERIN 0.4 MG SL TAB SL ×2 (11:24→12:00)
[2019-03-22 12:07] LABS: Creatine Kinase 490 U/L (30-135)
[2019-03-22 12:20] LABS: Troponin I < 0.012 ng/mL (0.01-0.034)
[2019-03-22 12:23] LABS: CKMB % Relative Index 0.9 % (1.5-5.0); Creatine Kinase MB 4.28 ng/mL (<2.37)
[2019-03-22 12:28] LABS: D Dimer 682 ng/mL (<230)
--- NOTE | 2019-03-22 12:44 | PT.IPTN ---
Current Diagnoses Spinal stenosis, cervical region (03/21/19) Strain of muscle, fascia and tendon at neck level, initial encounter (03/21/19) Surgery Performed Operation Date: 03/21/19 10:15 Actual Procedures p C4-5,C5-6,C6-7 Cervical Fusion Anterior/Posterior Instru. & bone graft - Dl Jules MD Physical Therapy Treatment Note M3 PT-IP Subjective Start: 03/21/19 16:59 Freq: NEEDED Status: Active Protocol: Document 03/22/19 12:43 AB (Rec: 03/22/19 12:44 AB [id number]) Subjective Physical Therapy Visit Type Notes checked with nurse and stated that pt is having chest pain right now and they are trying to check on pt. pt on hold at this time. will f/u later this afternoon.
[2019-03-22 12:51] LABS: Alanine Aminotransferase 19 IU/L (9-52); Albumin 3.4 g/dL (3.5-5.0); Albumin Globulin Ratio 1.3 (1.0-2.8); Alkaline Phosphatase 89 U/L (38-126); Aspartate Aminotransferase 31 IU/L (14-36); Bilirubin Total 0.7 mg/dL (0.2-1.3); Blood Urea Nitrogen 27 mg/dL (7-17); Calcium 8.4 mg/dL (8.4-10.2); Carbon Dioxide 26 mmol/L (22-32); Chloride 98 mmol/L (98-107); Estimated Glomerular Filt Rate > 60.0 mL/min (>60); Globulin 2.6 g/dL (1.7-4.1); Glucose 184 mg/dL (80-110); HEMOLYSIS 20 (0-50); Potassium 4.7 mmol/L (3.4-5.1); Sodium 132 mmol/L (137-145)
--- NOTE | 2019-03-22 12:59 | DI.RAD.S_ITS ---
PROCEDURE: XR CHEST 1V INDICATIONS: chest pain TECHNIQUE: One view of the chest was acquired. COMPARISON: [facility], , CHEST 2 VIEW, 10/27/2015, 9:16. FINDINGS: Surgical changes and devices: None. Lungs and pleura: Lungs are clear. No pleural effusions or pneumothorax. Mediastinum: Mediastinal contours appear normal. Heart size is normal. Bones and chest wall: No suspicious bony lesions. Overlying soft tissues appear unremarkable. IMPRESSION: No acute process. Dictated by: Lucrecia Javier M.D. on 03/22/2019 at 13:10 Approved by: Lucrecia Javier M.D. on 03/22/2019 at 13:11
[2019-03-22 13:02] LABS: Hematocrit 36.8 % (36-46); Hemoglobin 12.2 g/dL (12.0-16.0); Mean Corpuscular HGB Conc 33.2 % (30-36); Mean Corpuscular Hemoglobin 29.4 PG (26-34); Mean Corpuscular Volume 88.5 fL (80-100); Red Blood Cell Count 4.16 X10^6/uL (4.0-5.2); Red Cell Distribution Width 15.7 % (11.6-14.8)
[2019-03-22] MEDS: MORPHINE 2 MG/ML INJ IV ×3 (13:10→22:20)
--- NOTE | 2019-03-22 13:15 | PM.CN ---
History of Present Illness Date Patient Seen: 03/22/19 Chief complaint: [id number] Reason for consult: Chest Pain Requesting provider: Dl Jules Narrative: The patient is a 79-year-old female with a history of hypertension hyperlipidemia and insulin-requiring diabetes who is status post a C2-C7 cervical diskectomy and fusion with cages. Patient also had posterior cervical fusion as well. She was in her usual state of health until earlier this morning. She developed substernal chest pressure rated at 7/10 in intensity. Pain did not radiate. However her chest pain was associated with diaphoresis and nausea. She had some associated shortness of breath. The patient received 2 sublingual nitroglycerin which improved her pain from 7/10 down to 3/10. Pain lasted off and on for 2 hours per she has no history of heart disease. She has multiple cardiac risk factors including obesity, hypertension, hyperlipidemia and type 2 diabetes. The patient was placed on oxygen although she was not hypoxic. Her symptoms have somewhat subsided although she does not feel back to normal. Patient had extensive diagnostic workup to include a 12 lead EKG which was unremarkable for ST changes. There was some concern about ST-elevation when she was placed on telemetry. Her white count is elevated at 14. Her initial troponins were normal. Her D-dimer was elevated at 628. Plans were being made for CT angio however the patient is allergic to IV contrast and also allergic to Benadryl. We are unable to get a V/Q scan this weekend. [facility] Medical History Anemia (Acute) Arthritis (Acute) Chronic UTI (Acute) Diabetes mellitus, type II (Acute) Encephalitis (Acute ~1984) Gout (Acute) HTN (hypertension) (Acute) Hearing impaired (Acute) Numbness (Acute) Osteoarthritis (Acute) Sleep apnea (Acute) Sterilization (Acute ~1969) Surgical History (Updated 03/18/19 @ 14:36 by Charlotte Schofield RN) History of arthroplasty of left knee (Acute 06/03/15) History of arthroplasty of right knee (Acute ~2013) History of bilateral salpingo-oophorectomy (BSO) (Acute ~10/2015) History of lumbar fusion (Acute ~1995) History of lumbar laminectomy for spinal cord decompression (Acute ~2003) Hx of tonsillectomy (Acute) Status post epidural steroid injection (Acute) History of cataract removal with insertion of prosthetic lens Status post endometrial ablation (~1990) Family History Mother No problems noted. Social History household members: family Smoking Status: Never smoker Family History Mother No problems noted. Social History household members: family Smoking Status: Never smoker Meds Home Medications Medication Instructions Recorded Confirmed Type cephalexin [Keflex] 500 mg PO HS #0 06/22/17 03/21/19 History allopurinol 300 mg tablet 300 mg PO BEDTIME 03/08/18 03/21/19 History simvastatin 20 mg tablet 20 mg PO BEDTIME 03/08/18 03/21/19 History insulin glargine (U-100) 100 24 unit SUBCUT BEDTIME ml 10/17/18 03/21/19 History unit/mL (3 mL) subcutaneous pen metformin 500 mg tablet 500 mg PO DAILY 30 Days tab 10/17/18 03/21/19 History aspirin 81 mg PO DAILY 03/18/19 03/21/19 History gabapentin 2 tab PO BEDTIME 03/18/19 03/21/19 History diazepam 2 mg PO Q4HR PRN #12 tab 03/22/19 Rx docusate sodium [DOK] 100 mg PO BID PRN #40 cap 03/22/19 Rx hydrocodone-acetaminophen 1 tab PO Q4HR PRN #20 tab 03/22/19 Rx Allergies Allergy/AdvReac Type Severity Reaction Status Date / Time Sulfa (Sulfonamide Allergy Severe RASH Verified 03/21/19 09:10 Antibiotics) [SULFA (SULFONAMIDE ANTIBIOTICS)] diphenhydramine AdvReac Severe MAKES ME Verified 03/21/19 09:10 [From BENADRYL] CRAZY hydromorphone [From DILAUDID] AdvReac Severe HALLUCINATIONS, Verified 03/21/19 09:10 AGITATION, MEMORY LOSS Iodinated Contrast- Oral and AdvReac Severe HEART Verified 03/21/19 09:10 IV Dye RACING, [IODINATED CONTRAST MEDIA - SNYCOPE, IV DYE] HOT meperidine [From DEMEROL] AdvReac Intermediate NAUSEA/VOMI Verified 03/21/19 09:10 TING Review of Systems Review of Systems All systems reviewed & are unremarkable except as noted in HPI and below Exam Vital Signs (past 8 hours): - 03/22/19 06:14 03/22/19 08:00 03/22/19 08:30 Temperature 98.1 F 97.9 F Pulse Rate 66 69 Respiratory Rate 16 18 Blood Pressure 110/54 L 121/64 Pulse Oximetry 97 96 99 03/22/19 08:50 03/22/19 11:07 03/22/19 11:22 Temperature Pulse Rate 64 63 Respiratory Rate Blood Pressure 144/75 H 136/76 Pulse Oximetry 99 100 96 03/22/19 11:32 03/22/19 11:44 Temperature Pulse Rate 66 64 Respiratory Rate 16 Blood Pressure 132/72 119/62 Pulse Oximetry 99 100 Fraction of Inspired Oxygen 21 Oxygen Delivery Method Room Air Oxygen Flow Rate 2 Narrative Exam Narrative: Pleasant female lying in bed in no obvious distress HEENT: Normocephalic atraumatic extraocular muscles are intact oropharynx reveals dry mucous membranes Lungs: Clear to auscultation Cardiac exam: Regular rate rhythm normal S1-S2 Abdomen: Soft nontender nondistended Extremities: No edema Neuro exam: Nonfocal Objective Labs Result Diagrams: 03/22/19 12:07 03/22/19 12:07 Labs: Laboratory Results - last 24 hr 03/22/19 03/22/19 03/22/19 11:35 12:07 12:07 WBC 14.0 H RBC 4.16 Hgb 12.2 Hct 36.8 MCV 88.5 MCH 29.4 MCHC 33.2 RDW 15.7 H Plt Count 151 D-Dimer 682 H Sodium Potassium Chloride Carbon Dioxide BUN Creatinine Estimated GFR BUN/Creatinine Ratio Glucose Calcium Total Bilirubin AST ALT Alkaline Phosphatase Total Creatine Kinase 490 H CK-MB (CK-2) 4.28 H CK-MB (CK-2) Rel Index 0.9 L Troponin I < 0.012 Total Protein Albumin Globulin Albumin/Globulin Ratio 03/22/19 12:07 WBC RBC Hgb Hct MCV MCH MCHC RDW Plt Count D-Dimer Sodium 132 L Potassium 4.7 Chloride 98 Carbon Dioxide 26 BUN 27 H Creatinine 0.90 Estimated GFR > 60.0 BUN/Creatinine Ratio 30.0 H Glucose 184 H Calcium 8.4 Total Bilirubin 0.7 AST 31 ALT 19 Alkaline Phosphatase 89 Total Creatine Kinase CK-MB (CK-2) CK-MB (CK-2) Rel Index Troponin I Total Protein 6.0 L Albumin 3.4 L Globulin 2.6 Albumin/Globulin Ratio 1.3 Assessment & Plan Assessment & Plan narrative: 79-year-old female 1 day postop cervical fusion, diskectomy, cages with abrupt onset of chest pain. Given her multiple risk factors to include obesity hypertension hyperlipidemia most likely represents unstable angina. Patient is currently pain-free. Her cardiac enzymes are negative. Her EKG is unremarkable. At this time will continue treating her medically to include oxygen, morphine, nitroglycerin as needed. The patient will continue on her usual antihypertensive therapy to include her Justice inhibitor and amlodipine. Would recommend continuing her statin. Will continue a baby aspirin daily. Will await chest x-ray. Will obtain a cardiac echo. Will defer V/Q scan at this time. Thank you very much for this consultation
--- NOTE | 2019-03-22 13:24 | OT.IP.TRT ---
Current Diagnoses Spinal stenosis, cervical region (03/21/19) Strain of muscle, fascia and tendon at neck level, initial encounter (03/21/19) Surgery Performed Operation Date: 03/21/19 10:15 Actual Procedures p C4-5,C5-6,C6-7 Cervical Fusion Anterior/Posterior Instru. & bone graft - Dl Jules MD Occupational Therapy Treatment Note M3 OT- IP Subjective and Pain Start: 03/22/19 13:22 Freq: Status: Active Protocol: Document 03/22/19 13:22 CGR (Rec: 03/22/19 13:24 CGR [id number]) OT- Subjective Occupational Therapy Visit Type Type Administrative Note Notes Attempted to see pt for OT eval. Per nursing, pt had just started complaining of a heavy chest and nurisng to investigate further. Recheck later and nursing (in with pt) indicated to hold for the day . Will hold at this time and continue to follow.
--- NOTE | 2019-03-22 13:41 | CM.IDA ---
Addendum entered by KENN Rivera 03/23/19 13:45: Sunday, 6.17.19: Checked in w/KY Waddell and reviewed chart, pt sleeping soundly, this HAZMAT TECHNICIAN did not feel it necessary to wake pt. PT still held d/t heart irregularities. cardiac echo pending. HAZMAT TECHNICIAN team will plan to assess for DC needs once more medically stable and therapies have a chance to eval and treat. JW Original Note: Brief Initial DCP Assessment Note: Pt is a 79 yo female, resident of [place]. Pt now POD#1 from spinal surgery w/ Dr Nunez. PCP: Dr Malhotra Payer: Medicare/[facility] Attempted to meet w/pt to assess for DC needs, pt looked to be sleeping and KAYCE Saleh in stating pt has had some chest pain that they are trying to address now. This HAZMAT TECHNICIAN following closely and will attempt another visit to review DCP options w/pt once medically appropriate. KENN Rivera
[2019-03-22 13:53] LABS: Anisocytosis 2+; Neutrophils Absolute Manual 11900 /uL (3000-5900); Poikilocytosis 1+; Total Cells Counted 100
[2019-03-22 13:55] LABS: Platelet Count 151 X10^3/uL (150-400)
--- NOTE | 2019-03-22 13:58 | PT.IPTN ---
Current Diagnoses Spinal stenosis, cervical region (03/21/19) Strain of muscle, fascia and tendon at neck level, initial encounter (03/21/19) Surgery Performed Operation Date: 03/21/19 10:15 Actual Procedures p C4-5,C5-6,C6-7 Cervical Fusion Anterior/Posterior Instru. & bone graft - Dl Jules MD Physical Therapy Treatment Note M3 PT-IP Subjective Start: 03/21/19 16:59 Freq: NEEDED Status: Active Protocol: Document 03/22/19 13:57 AB (Rec: 03/22/19 13:58 AB [id number]) Subjective Physical Therapy Visit Type Notes checked with the nurse and stated that pt still is not ready for PT. pt is still having chest pain.
[2019-03-22 14:19] LABS: B Type Natriuretic Peptide 111 (<100)
--- NOTE | 2019-03-22 14:56 | PC.NURSE ---
Event note Day Shift- Around 1105, INSPECTION MACHINE TENDER reported to this RN that pt did not feel well and c/o new chest pressure to mid upper chest. 1107 BP 144/75 Pulse 64, O2 sat 98% on RA. Assessed pt, stating 7/10 chest pressure that she has not experienced before. Bilateral shoulder pain that has increased since this morning. C/O feeling like she can't take a deep breath. O2 NC 2L placed. On continuous O2 monitoring. Slight heart rate irregularity upon auscultation that was not heard with this mornings assessment. RT paged, EKG obtained. Pt repositioned upwards in bed, elevated BLE. Pt stated feeling nauseated, no diaphoresis, did look pale to her face, lips, upper extremities. Fingernail capillary refills slightly delayed and fingertips cool, hand, wrist, arm warm bilaterally. Radial pulses palpable. Pt lethargic, unable to keep eyes open during questioning. [address] Jules via phone, and made aware of above, orders rec'd for Troponin, CK, D-Dimer, Nitro SL X1. 1124 Nitro 0.4mg SL given for 6-7/10 chest pressure. VS after were BP 132/72 Pulse 66. 1133 chest pressure decreased to 5/10 to mid upper chest. Phlebotomy had a hard time drawing blood from pt, attempting multiple times, pt agreeable. 1140 Chest pressure decreased to 4/10 1156, pt place on telemetry monitoring, ICU aware. Shaina RN Called to report pt had slight ST elevation. [address] Jules for update regarding lab results, pt placed on telemetry, aware of slight ST elevation, 2nd dose of nitro SL given. Plan for CT chest, hospitalist consult by Dr. Jules. Unable for pt to have CT chest due to contrast allergy, Dr. Cruz notified. Dr. Cruz also updated with report of event at pt's bedside. Peripheral circulation improved and pt's color had improved over time to face, lips, upper extremities. 1302, Spoke with Dr. Cruz for update, new orders place by Dr. Cruz, RT paged for repeat EKG. Again phlebotomy had to attempt multiple times to retrieve blood for repeat blood work. 1312 Morphine 2mg IV given per Dr. Cruz request. 1320 pt lethargic, pain 2/10 to chest. 1320 Pt request I call her emergency contact and friend Bhavna [phone] and give her an update. Pt agreeable for Bhavna to also come visit. 1511 Dr. Jules in to see pt and update received. Pt's friend Bhavna in room as well.
[2019-03-22 15:00] LABS: Troponin I < 0.012 ng/mL (0.01-0.034)
--- NOTE | 2019-03-22 15:19 | P.PN_ITS ---
Subjective Date Patient Seen: 03/22/19 Time Patient Seen: 15:17 Interval history: She is feeling better now. Chest pain is fairly minimal. Exam Vital Signs (past 8 hours): - 03/22/19 08:00 03/22/19 08:30 03/22/19 08:50 Temperature 97.9 F Pulse Rate 69 Respiratory Rate 18 Blood Pressure 121/64 Pulse Oximetry 96 99 99 03/22/19 11:07 03/22/19 11:22 03/22/19 11:32 Temperature Pulse Rate 64 63 66 Respiratory Rate Blood Pressure 144/75 H 136/76 132/72 Pulse Oximetry 100 96 99 03/22/19 11:44 Temperature Pulse Rate 64 Respiratory Rate 16 Blood Pressure 119/62 Pulse Oximetry 100 Fraction of Inspired Oxygen 21 Oxygen Delivery Method Room Air Oxygen Flow Rate 2 Const Orientation: alert and oriented x3 Objective Labs Result Diagrams: 03/22/19 12:07 03/22/19 12:07 Labs: Laboratory Results - last 24 hr 03/22/19 03/22/19 03/22/19 11:35 12:04 12:07 WBC RBC Hgb Hct MCV MCH MCHC RDW Plt Count Total Counted Seg Neutrophils % Lymphocytes % (Manual) Monocytes % (Manual) Neutrophils # (Manual) RBC Morphology Poikilocytosis Anisocytosis D-Dimer 682 H Sodium Potassium Chloride Carbon Dioxide BUN Creatinine Estimated GFR BUN/Creatinine Ratio Glucose Calcium Total Bilirubin AST ALT Alkaline Phosphatase Total Creatine Kinase 490 H CK-MB (CK-2) 4.28 H CK-MB (CK-2) Rel Index 0.9 L Troponin I < 0.012 B-Natriuretic Peptide 111 H Total Protein Albumin Globulin Albumin/Globulin Ratio 03/22/19 03/22/19 03/22/19 12:07 12:07 14:30 WBC 14.0 H RBC 4.16 Hgb 12.2 Hct 36.8 MCV 88.5 MCH 29.4 MCHC 33.2 RDW 15.7 H Plt Count 151 Total Counted 100 Seg Neutrophils % 85.0 H Lymphocytes % (Manual) 8.0 L Monocytes % (Manual) 7.0 Neutrophils # (Manual) 88684 H RBC Morphology See below Poikilocytosis 1+ H Anisocytosis 2+ H D-Dimer Sodium 132 L Potassium 4.7 Chloride 98 Carbon Dioxide 26 BUN 27 H Creatinine 0.90 Estimated GFR > 60.0 BUN/Creatinine Ratio 30.0 H Glucose 184 H Calcium 8.4 Total Bilirubin 0.7 AST 31 ALT 19 Alkaline Phosphatase 89 Total Creatine Kinase CK-MB (CK-2) CK-MB (CK-2) Rel Index Troponin I < 0.012 B-Natriuretic Peptide Total Protein 6.0 L Albumin 3.4 L Globulin 2.6 Albumin/Globulin Ratio 1.3 Assessment & Plan Post-op Postoperative Procedures Operation Date: 03/21/19 10:15 Actual Procedures Side Surgeon p C4-5,C5-6,C6-7 Cervical Fusion Anterior/Posterior Instru. & bone graft Dl Jules MD A greatly appreciate Dr. Cruz's help with this patient. Currently it looks like unstable angina but we are going to keep her on telemetry and continue checking cardiac enzymes. We cannot check a CT angiogram of the chest because of her iodine contrast allergy but PE is low likelihood as symptoms have mostly resolved with nitrogl ycerin, and her oxygen saturation is fine. I would like to hold off on anticoagulation if possible for now as she just had surgery at the level of the spinal cord and a postoperative hematoma in this region could be catastrophic. Quality VTE Deep Vein Thrombosis/Pulmonary Embolism Present on Admission: No
--- NOTE | 2019-03-22 17:11 | SLP.IPNOTE ---
Consulted with Nsg, who confirmed pt passed Nsg swallow screen earlier in the day and tolerated soup and crackers for lunch without overt s/sx of aspiration. PRECISION AIRCRAFT STRUCTURE ASSEMBLER screened the pt's swallow again. The pt stated, My throat hurts when I swallow, but that's all. When offered dry soda cracker, she stated concern it would hurt her throat and requested fortunato cracker dunked in milk, which was provided. She exhibited delayed throat clearing x2; no other overt s/sx of aspiration with cracker or sips of milk. Voice was mildly hoarse throughout without significant change post-swallow. Full swallow evaluation is not warranted at this time. Speech Pathology will f/u with pt again on Sunday with further screening or evaluation, if indicated.
[2019-03-22] MEDS: SIMVASTATIN 20 MG TABLET PO (22:00)
[2019-03-22] MEDS: ALLOPURINOL 300 MG TABLET PO (22:03)
[2019-03-22] MEDS: cephALEXin 250 MG CAPSULE 500 MG PO (22:03)
[2019-03-22] MEDS: GABAPENTIN 600 MG TABLET 1200 MG PO (22:04)
[2019-03-22] MEDS: SENNOSIDES 8.6 MG TABLET 17.2 MG PO (22:04)
[2019-03-22] MEDS: INSULIN GLARGINE 100 UNIT/ML 3ML PEN 24 UNIT SUBCUT (22:05)
[2019-03-23] VITALS (11 sets, daily range): BP systolic 107–136; BP diastolic 50–73; PULSE 66–74; RESP 16–22; TEMP 36.1–37.3; O2SAT 94–98
--- NOTE | 2019-03-23 | DI.ECHO.S_ITS ---
[place] [facility]---------+ [facility] +---------+ : : [address] : : [place], [place] : : : : [id number] : : : : Phone: [phone]+ Echocardiogram Report + + :Name: ZAINAB DRUAND Study Date: 03/23/2019 Height: 64 in : :[facility] Exam Location: [facility] Weight: 240 lb : : Gender: Female BSA: 2.1 m2 : :: 1940 Age: 79 yrs BP: 107/52 mmHg: :Reason For Study: Unstable angina : :Ordering Physician: Jemma : :Hospitalist Performed By: Mery Page : :Referring: KENA ARIZMENDI : + + Interpretation Summary Technically difficult study do to body habitus and patients inability to move because of recent neck surgery. 1) Normal left ventricular thickness, size, and systolic function (EF 60-65%). 2) There are no obvious focal wall motion abnormalities noted but poor endocardial definition reduces the sensitivity for the detection of such. 3) Grossly normal right ventricular size and function. 4) There is mild to moderate aortic stenosis (mean gradient 15mm Hg, valve area 1.3cm2, severity ratio 0.41). 5) The right ventricular systolic pressure is estimated to be at least 52 mmHg based on an estimated right atrial pressure of 15 mm Hg. 6) The IVC is dilated (diameter is greater than 2.1 cm) and it collapses less than 50% with a sniff. This suggests a high right atrial pressure of 15 mm Hg. 7) No prior Echo available for comparison. Procedure: A two-dimensional transthoracic echocardiogram with color flow and Doppler was performed. The study quality was technically adequate. There is no prior echocardiogram noted for this patient. The patient was in normal sinus rhythm during the exam. Left Ventricle: The left ventricle is normal in size. Left ventricular wall thickness is borderline increased. Left ventricular systolic function is normal. The ejection fraction is estimated to be 60-65%. There are no obvious focal wall motion abnormalities noted but poor endocardial definition reduces the sensitivity for the detection of such. Unable to comprehensively assess diastolic dysfunction as mitral annular calcification present. Suspect at least grade 2 diastolic dysfunction. Right Ventricle: The right ventricle grossly appears normal in size with probable normal systolic function. Atria: The left atrium is moderately dilated. Right atrial size is normal. There is no Doppler evidence for an interatrial shunt. Mitral Valve: The mitral valve leaflets appear mildly thickened, but open well. There is moderate mitral annular calcification. There is trace mitral regurgitation. Aortic Valve: The aortic valve is not well visualized. The aortic valve is mildly calcified. The peak aortic velocity is 2.6 m/sec. The calculated aortic valve area is 1.3 cm2. The aortic valve mean gradient is 15.0 mmHg. There is mild to moderate aortic stenosis. There is trace aortic regurgitation. Tricuspid Valve: The tricuspid valve is not well visualized, but is grossly normal. There is trace tricuspid regurgitation. The right ventricular systolic pressure is estimated to be at least 52 mmHg based on an estimated right atrial pressure of 15 mm Hg. Pulmonic Valve: The pulmonic valve is not well visualized. There is a trace or physiologic amount of pulmonic regurgitation. Great Vessels: The aortic root is normal size. The ascending aorta is at the upper limits of normal in size. The pulmonary artery is not well visualized, but is probably normal size. The IVC is dilated (diameter is greater than 2.1 cm) and it collapses less than 50% with a sniff. This suggests a high right atrial pressure of 15 mm Hg. Pericardium/ Pleura There is no pericardial effusion. There is no pleural effusion. MMode/2D Measurements & Calculations LVIDd: 5.1 cm LVOT diam: 2.0 cm LVIDs: 3.2 cm Ao root diam: 3.6 cm FS: 37.9 % asc Aorta Diam: 3.7 cm IVSd: 0.94 cm LVPWd: 0.84 cm LV weathers. diameter/BSA (cm/m^2): 2.4 LV sys. diameter/BSA (cm/m^2): 1.5 LA A2 area: 24.4 cm2 RA long axis: 4.9 cm LA A4 area: 28.4 cm2 RA area: 16.1 cm2 LA length (vol): 6.4 cm RA vol: 45.2 ml LA vol: 91.9 ml RA : 21.4 ml/m2 LA vol index: 43.5 ml/m2 IVC diam: 2.5 cm RVD1 (basal): 3.9 cm TAPSE: 2.4 cm Doppler Measurements & Calculations Ao V2 max: 255.6 cm/sec LVOT Max Kory: 103.1 cm/sec Ao V2 mean: 185.6 cm/sec LV V1 max P.3 mmHg Ao max P.1 mmHg LV V1 VTI: 22.5 cm Ao mean P.0 mmHg EMILE(I,D): 1.3 cm2 Ao V2 VTI: 54.6 cm EMILE(V,D): 1.3 cm2 sev ratio: 0.41 EMILE indexed to BSA (cm^2/m^2): 0.64 MV E max kory: 165.0 cm/sec TR max kory: 302.8 cm/sec MV A max kory: 144.9 cm/sec TR max P.7 mmHg MV E/A: 1.1 PA V2 max: 74.2 cm/sec Med Peak E' Kory: 6.9 cm/sec PA V2 mean: 52.3 cm/sec E/E' med: 23.9 PA mean P.2 mmHg Lat Peak E' Kory: 6.4 cm/sec PA Accel Time: 0.07 sec E/E' lat: 25.7 E/e' average: 24.8 MV dec time: 0.23 sec MV P1/2t: 69.6 msec MVA(VTI): 1.6 cm2 MV V2 mean: 73.7 cm/sec MV P1/2t max kory: 165.7 cm/sec MV mean P.8 mmHg MVA(P1/2t): 3.2 cm2 MV V2 VTI: 46.6 cm SV(LVOT): 73.3 ml Reading Physician:02:36 PM
--- NOTE | 2019-03-23 08:07 | PM.PNPO.1 ---
Subjective Date Patient Seen: 03/23/19 Time Patient Seen: 08:07 Interval history: Much better than yesterday. Still a light heaviness in the chest but no shortness of breath or chest pain. Arms are doing well. Minimal neck pain. Exam Vital Signs (past 8 hours): - 03/23/19 00:45 03/23/19 03:31 03/23/19 07:15 Temperature 99.2 F 98.3 F Pulse Rate 72 70 Respiratory Rate 16 18 Blood Pressure 124/61 136/68 Pulse Oximetry 96 97 98 03/23/19 07:34 Temperature Pulse Rate Respiratory Rate Blood Pressure Pulse Oximetry 98 Fraction of Inspired Oxygen 21 Oxygen Delivery Method Room Air Oxygen Flow Rate 0 Const Orientation: alert and oriented x3 Back/Spine/Pelvis Other: CDI. 5/5 motor both upper extremities. Objective Labs Result Diagrams: 03/22/19 12:07 03/22/19 12:07 Labs: Laboratory Results - last 24 hr 03/22/19 03/22/19 03/22/19 11:35 12:04 12:07 WBC RBC Hgb Hct MCV MCH MCHC RDW Plt Count Total Counted Seg Neutrophils % Lymphocytes % (Manual) Monocytes % (Manual) Neutrophils # (Manual) RBC Morphology Poikilocytosis Anisocytosis D-Dimer 682 H Sodium Potassium Chloride Carbon Dioxide BUN Creatinine Estimated GFR BUN/Creatinine Ratio Glucose Calcium Total Bilirubin AST ALT Alkaline Phosphatase Total Creatine Kinase 490 H CK-MB (CK-2) 4.28 H CK-MB (CK-2) Rel Index 0.9 L Troponin I < 0.012 B-Natriuretic Peptide 111 H Total Protein Albumin Globulin Albumin/Globulin Ratio 03/22/19 03/22/19 03/22/19 12:07 12:07 14:30 WBC 14.0 H RBC 4.16 Hgb 12.2 Hct 36.8 MCV 88.5 MCH 29.4 MCHC 33.2 RDW 15.7 H Plt Count 151 Total Counted 100 Seg Neutrophils % 85.0 H Lymphocytes % (Manual) 8.0 L Monocytes % (Manual) 7.0 Neutrophils # (Manual) 20104 H RBC Morphology See below Poikilocytosis 1+ H Anisocytosis 2+ H D-Dimer Sodium 132 L Potassium 4.7 Chloride 98 Carbon Dioxide 26 BUN 27 H Creatinine 0.90 Estimated GFR > 60.0 BUN/Creatinine Ratio 30.0 H Glucose 184 H Calcium 8.4 Total Bilirubin 0.7 AST 31 ALT 19 Alkaline Phosphatase 89 Total Creatine Kinase CK-MB (CK-2) CK-MB (CK-2) Rel Index Troponin I < 0.012 B-Natriuretic Peptide Total Protein 6.0 L Albumin 3.4 L Globulin 2.6 Albumin/Globulin Ratio 1.3 Assessment & Plan Post-op Postoperative Procedures Operation Date: 03/21/19 10:15 Actual Procedures Side Surgeon p C4-5,C5-6,C6-7 Cervical Fusion Anterior/Posterior Instru. & bone graft Dl Jules MD she is doing better today. Stable from a spinal standpoint. Continue cardiac workup per medicine team. Quality VTE Deep Vein Thrombosis/Pulmonary Embolism Present on Admission: No
[2019-03-23] MEDS: INSULIN ASPART 100 UNIT/ML INSULN PEN SUBCUT ×3 (08:37→17:00)
[2019-03-23] MEDS: SODIUM CHLORIDE 0.9% FLUSH 10 ML IV ×3 (08:40→19:54)
[2019-03-23] MEDS: MORPHINE 2 MG/ML INJ IV (08:41)
[2019-03-23] MEDS: ASPIRIN EC 81 MG TABLET PO (08:44)
[2019-03-23] MEDS: NITROGLYCERIN OINT 1 INCH/GM OINT...G. TOP (08:45)
--- NOTE | 2019-03-23 09:57 | P.PN_ITS ---
Subjective Date Patient Seen: 03/23/19 Interval history: THE PATIENT IS A 79-YEAR-OLD FEMALE STATUS POST SC TO C7 S EMANUEL FUSION AND DISKECTOMY WITH CAGE IN. PATIENT DEVELOPED SUBSTERNAL CHEST PAIN YESTERDAY. THE PAIN SEEMED TO SUBSIDE WITH MORPHINE. SHE REPORTS CONTINUED PAIN THIS MORNING. SHE DESCRIBED IT 4/10 AND PRESSURE. IT DOES NOT RADIATE. IT IS NOT ASSOCIATED WITH SHORTNESS OF BREATH. SHE IS SITTING UP HAVING BREAKFAST SHE LOOKS BETTER TODAY. SHE DID HAVE SOME NAUSEA OVERNIGHT WITH SWEATING. Exam Vital Signs (past 8 hours): - 03/23/19 03:31 03/23/19 07:15 03/23/19 07:34 Temperature 98.3 F Pulse Rate 70 Respiratory Rate 18 Blood Pressure 136/68 Pulse Oximetry 97 98 98 03/23/19 08:00 03/23/19 09:45 Temperature 98.5 F Pulse Rate 74 74 Respiratory Rate 16 18 Blood Pressure 136/50 L 133/73 Pulse Oximetry 98 98 Fraction of Inspired Oxygen 21 Oxygen Delivery Method Room Air Oxygen Flow Rate 1.5 Narrative Exam Narrative: PLEASANT FEMALE SITTING UP TO A CHAIR IN NO ACUTE DISTRESS LUNGS: CLEAR TO AUSCULTATE CARDIAC EXAM: REGULAR RATE AND RHYTHM NORMAL S1-S2 WITH A 2/6 SYSTOLIC EJECTION MURMUR ABDOMEN: SOFT NONTENDER NONDISTENDED EXTREMITIES: NO EDEMA Objective Labs Result Diagrams: 03/22/19 12:07 03/22/19 12:07 Labs: Laboratory Results - last 24 hr 03/22/19 03/22/19 03/22/19 11:35 12:04 12:07 WBC RBC Hgb Hct MCV MCH MCHC RDW Plt Count Total Counted Seg Neutrophils % Lymphocytes % (Manual) Monocytes % (Manual) Neutrophils # (Manual) RBC Morphology Poikilocytosis Anisocytosis D-Dimer 682 H Sodium Potassium Chloride Carbon Dioxide BUN Creatinine Estimated GFR BUN/Creatinine Ratio Glucose Calcium Total Bilirubin AST ALT Alkaline Phosphatase Total Creatine Kinase 490 H CK-MB (CK-2) 4.28 H CK-MB (CK-2) Rel Index 0.9 L Troponin I < 0.012 B-Natriuretic Peptide 111 H Total Protein Albumin Globulin Albumin/Globulin Ratio 03/22/19 03/22/19 03/22/19 12:07 12:07 14:30 WBC 14.0 H RBC 4.16 Hgb 12.2 Hct 36.8 MCV 88.5 MCH 29.4 MCHC 33.2 RDW 15.7 H Plt Count 151 Total Counted 100 Seg Neutrophils % 85.0 H Lymphocytes % (Manual) 8.0 L Monocytes % (Manual) 7.0 Neutrophils # (Manual) 93043 H RBC Morphology See below Poikilocytosis 1+ H Anisocytosis 2+ H D-Dimer Sodium 132 L Potassium 4.7 Chloride 98 Carbon Dioxide 26 BUN 27 H Creatinine 0.90 Estimated GFR > 60.0 BUN/Creatinine Ratio 30.0 H Glucose 184 H Calcium 8.4 Total Bilirubin 0.7 AST 31 ALT 19 Alkaline Phosphatase 89 Total Creatine Kinase CK-MB (CK-2) CK-MB (CK-2) Rel Index Troponin I < 0.012 B-Natriuretic Peptide Total Protein 6.0 L Albumin 3.4 L Globulin 2.6 Albumin/Globulin Ratio 1.3 Assessment & Plan Assessment & Plan narrative: 1. UNSTABLE -79-YEAR-OLD FEMALE WITH MULTIPLE RISK FACTORS FOR CHEST PAIN. SHE HAS HAD RECURRENT PAIN THAT IS RESPONSIVE TO MORPHINE AND NITRO. SHE HER CARDIAC ENZYMES HAVE BEEN NEGATIVE. REPEAT EKGS REVEAL NO ACUTE ST CHANGES. AT THIS TIME WOULD TREAT HER WITH NITRO PASTE, OXYGEN, AND MORPHINE. WOULD RECOMMEND STRESS TESTING AN OUTPATIENT. THE PATIENT IS ALLERGIC TO IODINE AND RISKS FOR PULMONARY EMBOLUS IS FAIRLY LOW. WILL DEFER FURTHER WORKUP AT THIS TIME. WILL OBTAIN CARDIAC ECHO TO EVALUATE LV FUNCTION. 2. TYPE 2 DIABETES CONTINUE INSULIN WILL HOLD HER METFORMIN SHE MAY REQUIRE NPO AND FURTHER TESTING. WILL INCREASE HER SLIDING SCALE TO HIGH DOSE 3. HYPERTENSION, CHRONIC CONTINUE CURRENT MEDICATION 4. MORBID OBESITY 5. HYPONATREMIA, WILL CONTINUE TO FOLLOW 6. STATUS POST CERVICAL DISKECTOMY AND FUSION, FOLLOW-UP PER DR. JORDON Urrutia VTE Deep Vein Thrombosis/Pulmonary Embolism Present on Admission: No
--- NOTE | 2019-03-23 11:46 | PT.IIE ---
Current Diagnoses Spinal stenosis, cervical region (03/21/19) Strain of muscle, fascia and tendon at neck level, initial encounter (03/21/19) Surgery Performed Operation Date: 03/21/19 10:15 Actual Procedures p C4-5,C5-6,C6-7 Cervical Fusion Anterior/Posterior Instru. & bone graft - Dl Jules MD Surgical History (Last Updated 03/18/19 @ 14:36 by Charlotte Schofield RN) History of arthroplasty of left knee (Acute 06/03/15) History of arthroplasty of right knee (Acute ~2013) History of bilateral salpingo-oophorectomy (BSO) (Acute ~10/2015) History of lumbar fusion (Acute ~1995) History of lumbar laminectomy for spinal cord decompression (Acute ~2003) Hx of tonsillectomy (Acute) Status post epidural steroid injection (Acute) History of cataract removal with insertion of prosthetic lens Status post endometrial ablation (~1990) Medical History (Last Reviewed 03/22/19 @ 13:22 by Evelyn Cruz MD) Anemia (Acute) Arthritis (Acute) Chronic UTI (Acute) Diabetes mellitus, type II (Acute) Encephalitis (Acute ~1984) Gout (Acute) HTN (hypertension) (Acute) Hearing impaired (Acute) Numbness (Acute) Osteoarthritis (Acute) Sleep apnea (Acute) Sterilization (Acute ~1969) Physical Therapy Inpatient Evaluation/Re-Eval M1 PT/OT-IP Prior Functional Status Start: 03/21/19 16:59 Freq: NEEDED Status: Active Protocol: Document 03/23/19 11:46 [facility] (Rec: 03/23/19 13:27 [facility] [id number]) Medical Review Prior Functional Status Mobility and Gait mod indep with occasional 4WW use d/t chronic LBP Activities of Daily Living and IADL's mod indep I/ADLs including driving Social History Household Members family Living Arrangements House Number of Floors (Floors) One Floor Number of Stairs To Enter/Railing? ramped entry; sleeps in a recliner Home Environment Walk in Shower Ramp Home Equipment Four Wheel Walker Straight Cane Shower Seat with Backrest Additional Social History Comment Pt underwent C4-5, C5-6, C6-7 cervical fusion anterior/ posterior instrumentation and bone graft on 03/21/19. Pt had an episode of chest pain, was relieved with nitro, no acute findings in echo or troponins M1 PT/OT-IP Prior Functional Status Start: 03/22/19 13:22 Freq: NEEDED Status: Active Protocol: Document 03/23/19 11:46 [facility] (Rec: 03/23/19 13:27 [facility] [id number]) M2 PT-IP Current Condition Start: 03/21/19 16:59 Freq: NEEDED Status: Active Protocol: Document 03/23/19 11:46 [facility] (Rec: 03/23/19 13:27 [facility] [id number]) Physical Therapy Current Condition Current Condition Evaluation Date 03/23/19 Treatment Diagnosis C4-5, C5-6, C6-7 cervical fusion A/P, impaired activity tolerance Precautions Cervical Spine Precautions Soft Collar for Comfort No Heavy Lifting Log Roll Other Precautions monitor for chest pain M3 PT-IP Subjective Start: 03/21/19 16:59 Freq: NEEDED Status: Active Protocol: Document 03/23/19 11:46 [facility] (Rec: 03/23/19 13:27 [facility] [id number]) Subjective Physical Therapy Visit Type Type Initial Evaluation Visit Start Time 11:46 Visit Stop Time 12:04 Total Visit Minutes 19 Number of LEGAL SUPPORT ASSISTANT Visits 0 Physical Therapy Visit Comments Patient Comments pt states she is much better today Patient Goals wants to go home M4 PT-IP Mobility and Gait Start: 03/21/19 16:59 Freq: NEEDED Status: Active Protocol: Document 03/23/19 11:46 [facility] (Rec: 03/23/19 13:27 [facility] [id number]) PT-Bed Mobility Assessment Supine to Sit Supine to Sit Independent Head of Bed Elevated Bedrails Scooting Scooting to Edge of Bed Independent PT-Transfer Assessment Sit to and From Stand Sit to and from Stand Independent Equipment Transfer Assistive Device Gait Belt Front Wheeled Walker Transfers Transfer Destination Chair Toilet Transfer Technique Stand Step Pivot Transfer Ability Level of Assist Standby Assistance Gait Assessment Gait Gait Assistance Required: Standby Assistance Distance (Feet) 50 Assistive Devices Assistive Device Gait Belt Front Wheeled Walker Gait Deviations General Gait Pattern Decreased Stride Length Decreased Feet Clearance Flexed Trunk Factors Limiting Gait Function Factors Limiting Gait Function Decreased Activity Tolerance Decreased Strength Comments Gait Comments pt fatigued but no c/o SOB- pt on RA O2 saturation 95-97%, MA up to 104 bpm with recovery to 80s in 2 min seated rest. PT-Balance Assessment Sitting Balance and Reactions Static Sitting Balance Ability Good Dynamic Sitting Balance Ability Good Standing Balance and Reactions Static Standing Balance Ability Good Dynamic Standing Balance Ability Good Device Used FWW M5 PT-IP Objective Assessments Start: 03/21/19 16:59 Freq: NEEDED Status: Active Protocol: Document 03/23/19 11:46 [facility] (Rec: 03/23/19 13:27 [facility] [id number]) Orientation Orientation/Cognition Level of Alertness Alert Orientation Name Age Birthday Month Date Year Day of Week Place Situation Sensation Assessment Sensation Gross Sensation WNL Comments Sensation Comments denies numbness/tingling M6 PT-IP Treatment Start: 03/21/19 16:59 Freq: NEEDED Status: Active Protocol: Document 03/23/19 11:46 [facility] (Rec: 03/23/19 13:27 [facility] [id number]) Physical Therapy Treatment Exercises Exercises Ankle Pumps Education Education Provided Safety M7 PT-IP Assessment and Plan Start: 03/21/19 16:59 Freq: NEEDED Status: Active Protocol: Document 03/23/19 11:46 [facility] (Rec: 03/23/19 13:27 [facility] [id number]) PT Summary Assessment and Plan Potential Rehabilitation Potential Good Status of Condition at Evaluation Stable Summary Impairments Pain Strength Balance Gait Activity Tolerance Assessment Summary POD #2. Pt without c/o chest pain during this session. She was able to ambulate 50 ft with FWW and SBA, and has a ramped entry to get in/out of home. Pt does have support at home, likely will be safe to return home when medically stable. Pt would benefit from trial of 4WW. Goals Bed Mobility Goal Standby Assistance Transfer Goal Standby Assistance Gait Goal Standby Assistance Four Wheel Walker Gait Distance 150 Days to Meet Goals 5 Frequency of Treatment Frequency Of Treatment Twice a Day Treatment Plan Physical Therapy Treatment Plan Bed Mobility Training Transfer Training Gait Training Balance Retraining Post Op Education Discharge Planning Neuromuscular Re-ed Other Recommendations and Next Treatment gait with 4WW Focus Recommendations To Nursing Amount of Assist Needed 1 Person Assist Discharge Recommendations PT Discharge Recommendations Home with Assistance
--- NOTE | 2019-03-23 12:56 | PC.NURSE ---
Day Shift- Pt A&OX4, able to make needs known using call light. OOB with SBA to chair at bedside for breakfast. Tolerated well. Pt reported 1-3/10 upper mid chest pressure intermittently. Reported 4/[address] Cruz. Spoke with Dr. Cruz around 0830 and requested for pt to have IV PRN Morphine and be placed on Nitro paste. Morphine IV prn given at 0840 and nitro paste placed to right upper chest. VSS. O2 2L NC placed for overall comfort for chest pressure symptoms. On continuous O2 monitoring. Telemetry reading NSR documented by ICU nurse. Chest pressure decreased to 0/10 upon reassessment. Pt reports bilateral shoulder aching 3/10 prior to Morphine prn dose. Urinary catheter removed at 0850, pt voided approx 550mls post removal, no difficulty. ECHO started around 1040. Pt ambulated OOB with PT, went to BR and voided, above stated amount. Settled back into chair, now having lunch.
--- NOTE | 2019-03-23 14:56 | PT.IPTN ---
Current Diagnoses Spinal stenosis, cervical region (03/21/19) Strain of muscle, fascia and tendon at neck level, initial encounter (03/21/19) Surgery Performed Operation Date: 03/21/19 10:15 Actual Procedures p C4-5,C5-6,C6-7 Cervical Fusion Anterior/Posterior Instru. & bone graft - Dl Jules MD Physical Therapy Treatment Note M2 PT-IP Current Condition Start: 03/21/19 16:59 Freq: NEEDED Status: Active Protocol: Document 03/23/19 11:46 [facility] (Rec: 03/23/19 13:27 [facility] [id number]) Physical Therapy Current Condition Current Condition Evaluation Date 03/23/19 Treatment Diagnosis C4-5, C5-6, C6-7 cervical fusion A/P, impaired activity tolerance Precautions Cervical Spine Precautions Soft Collar for Comfort No Heavy Lifting Log Roll Other Precautions monitor for chest pain M3 PT-IP Subjective Start: 03/21/19 16:59 Freq: NEEDED Status: Active Protocol: Document 03/23/19 14:20 [facility] (Rec: 03/23/19 14:56 [facility] [id number]) Subjective Physical Therapy Visit Type Type Treatment Note Visit Start Time 14:20 Visit Stop Time 14:35 Total Visit Minutes 15 Number of CUSTOMER ACCOUNT MANAGER Visits 1 Physical Therapy Visit Comments Patient Comments agreeable to ambulate with therapy. M4 PT-IP Mobility and Gait Start: 03/21/19 16:59 Freq: NEEDED Status: Active Protocol: Document 03/23/19 14:20 [facility] (Rec: 03/23/19 14:56 [facility] [id number]) PT-Bed Mobility Assessment Supine to Sit Supine to Sit Independent Head of Bed Elevated Bedrails Scooting Scooting to Edge of Bed Independent PT-Transfer Assessment Sit to and From Stand Sit to and from Stand Independent Equipment Transfer Assistive Device Gait Belt Front Wheeled Walker Transfers Transfer Destination Bed Transfer Technique Stand Step Pivot Transfer Ability Level of Assist Standby Assistance Gait Assessment Gait Gait Assistance Required: Standby Assistance Distance (Feet) 100 Assistive Devices Assistive Device Gait Belt 4 Wheeled Walker Gait Deviations General Gait Pattern Decreased Stride Length Decreased Feet Clearance Flexed Trunk Factors Limiting Gait Function Factors Limiting Gait Function Decreased Activity Tolerance Decreased Strength Comments Gait Comments Pt required on seated rest break. At times pt leaned on walker with forearms due to LBP. Pt on RA O2 saturation 90 -91%, W[place] 104 recovered to 73 BPM after seated rest break. M5 PT-IP Objective Assessments Start: 03/21/19 16:59 Freq: NEEDED Status: Active Protocol: Document 03/23/19 11:46 [facility] (Rec: 03/23/19 13:27 [facility] [id number]) Orientation Orientation/Cognition Level of Alertness Alert Orientation Name Age Birthday Month Date Year Day of Week Place Situation Sensation Assessment Sensation Gross Sensation WNL Comments Sensation Comments denies numbness/tingling M6 PT-IP Treatment Start: 03/21/19 16:59 Freq: NEEDED Status: Active Protocol: Document 03/23/19 11:46 [facility] (Rec: 03/23/19 13:27 [facility] [id number]) Physical Therapy Treatment Exercises Exercises Ankle Pumps Education Education Provided Safety M7 PT-IP Assessment and Plan Start: 03/21/19 16:59 Freq: NEEDED Status: Active Protocol: Document 03/23/19 14:20 [facility] (Rec: 03/23/19 14:56 [facility] [id number]) PT Summary Assessment and Plan Potential Rehabilitation Potential Good Status of Condition at Evaluation Stable Summary Impairments Pain Strength Balance Gait Activity Tolerance Assessment Summary Pt without c/o chest pain. Pt increased ambulation to ~100ft with 4WW with one seated rest break. Pt is IND with bed mobility. Goals Bed Mobility Goal Standby Assistance Transfer Goal Standby Assistance Gait Goal Standby Assistance Four Wheel Walker Gait Distance 150 Days to Meet Goals 5 Frequency of Treatment Frequency Of Treatment Twice a Day Treatment Plan Physical Therapy Treatment Plan Bed Mobility Training Transfer Training Gait Training Balance Retraining Post Op Education Discharge Planning Neuromuscular Re-ed Recommendations To Nursing Amount of Assist Needed 1 Person Assist Discharge Recommendations PT Discharge Recommendations Home with Assistance
[2019-03-23] MEDS: HYDROCODONE/ACET 5/325 TABLET 1 TAB PO (18:53)
--- NOTE | 2019-03-23 19:43 | PC.NURSE ---
Addendum entered by Maame De Souza R.N. 03/23/19 20:03: Tele showing NSR per ICU staff [employer] post op course. Continue w/plan of care. Original Note: Pt having relaticvely uneventful evening. Med at 1850 for discomfort w/fair relief. Lungs clear/diminished at bases, Spo2 96% 2L Anterior and posterior dsg CDI. AC CBG = 181, 2u S/S insulin given. Soft collar in place. Stable post op course. Call light w/in reach, bed alarm on for pt safety.
[2019-03-23] MEDS: cephALEXin 250 MG CAPSULE 500 MG PO (19:51)
[2019-03-23] MEDS: GABAPENTIN 600 MG TABLET 1200 MG PO (19:52)
[2019-03-23] MEDS: ALLOPURINOL 300 MG TABLET PO (19:52)
[2019-03-23] MEDS: SIMVASTATIN 20 MG TABLET PO (19:53)
[2019-03-23] MEDS: INSULIN GLARGINE 100 UNIT/ML 3ML PEN 24 UNIT SUBCUT (20:00)
[2019-03-24] VITALS (7 sets, daily range): BP systolic 127–159; BP diastolic 61–85; PULSE 69–84; RESP 16–20; TEMP 36.5–37.7; O2SAT 91–96
--- NOTE | 2019-03-24 06:02 | PC.NURSE ---
Pt. declined to take her Vicodin, states it makes me a little nauseous. Also declined to notify her surgeon or get an order for another pain med. States I'll wait to see him this morning. Will cont. POC & report to day RN.
[2019-03-24] MEDS: INSULIN ASPART 100 UNIT/ML INSULN PEN SUBCUT ×3 (07:38→16:42)
[2019-03-24] MEDS: DOCUSATE 100 MG CAPSULE PO ×2 (08:30→21:27)
[2019-03-24] MEDS: ASPIRIN EC 81 MG TABLET PO (08:30)
[2019-03-24] MEDS: SODIUM CHLORIDE 0.9% FLUSH 10 ML IV ×2 (08:31→21:27)
--- NOTE | 2019-03-24 09:54 | DI.RAD.S_ITS ---
PROCEDURE: XR CHEST 1V INDICATIONS: aspiration pneumonia? TECHNIQUE: One view of the chest was acquired. COMPARISON: [facility], CR, XR CHEST 1V, 03/22/2019, 13:48. FINDINGS: Surgical changes and devices: None. Lungs and pleura: No acute consolidation. Scattered subsegmental atelectasis and/or scarring. No pleural effusions or pneumothorax. Elevation of the left hemidiaphragm appears unchanged Mediastinum: Mediastinal contours appear normal. Heart size is normal. Bones and chest wall: No suspicious bony lesions. Overlying soft tissues appear unremarkable. IMPRESSION: No acute disease or interval change Dictated by: Yifan Yousif M.D. on 03/24/2019 at 10:36 Approved by: Yifan Yousif M.D. on 03/24/2019 at 10:38
--- NOTE | 2019-03-24 10:10 | ST.IPIE ---
Care Team Visit Care Team Role Provider Type Jim Malhotra MD Primary Care Provider Physician Specialty: Internal Medicine Address: [address] [place] [address], [id number] Email: Dl Jules MD Admit Provider Physician Attending Provider Specialty: Orthopedic Surgery Address: [address] [place] [address], [id number] Email: [email or web address] Current Diagnoses Spinal stenosis, cervical region (03/21/19) Strain of muscle, fascia and tendon at neck level, initial encounter (03/21/19) Past Medical History (Last Reviewed 03/22/19 @ 13:22 by Evelyn Cruz MD) Anemia (Acute Medical) Arthritis (Acute Medical) Chronic UTI (Acute Medical) Diabetes mellitus, type II (Acute Medical) Encephalitis (Acute Medical ~1984) Gout (Acute Medical) HTN (hypertension) (Acute Medical) Hearing impaired (Acute Medical) Numbness (Acute Medical) Feet Osteoarthritis (Acute Medical) Sleep apnea (Acute Medical) W/CPAP Sterilization (Acute Medical ~1969) ST IP Initial Evaulation Report WEAVER NEEDLE LOOM Clinical Swallow Evaluation Start: 03/24/19 09:43 Freq: Status: Active Protocol: Document 03/24/19 09:43 [facility] (Rec: 03/24/19 10:10 [id number]) Clinical Swallow Evaluation Session Time Visit Start Time 08:45 Visit Stop Time 09:30 Total Visit Minutes [address] Jules Reason for Referral Pain with swallow status post ACDF Setting Assessment Location Acute Care Visit Type Note Type Initial Evaluation Next Note Type Next Note Type Treatment Note Patient Information Identification Type Name ID Card History This 79-yr-old female is day 3 status post ACDF. Over the weekend, she passed swallow screens by Nsg and WEAVER NEEDLE LOOM with only occasional delayed throat clearing. She complained at that time of pain with swallow but denied other swallow difficulty. Today she continues to complain of pain with swallow, though states it's not as bad as Sunday. She reported difficulty swallowing oatmeal, feeling that it stuck in both her mouth and her throat, and she also complains of constant coughing and feelings of nasal and chest congestion. Chest x-ray completed 03/22/19 revealed clear lungs and no acute process. Subjective Observations The pt was awake, lying in bed , recognized WEAVER NEEDLE LOOM upon arrival. She provided updated status as listed above, with c/o increased difficulty with swallow. She was agreeable to swallow evaluation. Evaluation Liquids Trialed Ice Chips Thin [place] Solids Trialed Puree Dysphagia Mechanical Mechanical Soft Administration Type Cup Single Sip Straw Self-Feeding Oral Impairment WFL Oral Strategies Upright at 90 degrees Oral Phase Comments Oral Peripheral Exam: Minimal lingual, buccal and labial weakness. Otherwise all structures symmetrical and WNL of coordination and ROM. Pt has full set natural teeth in good condition. Oral Phase: Mildly slowed a/p propulsion and swallow trigger , secondary to throat pain with swallow. Otherwise WNL. Pharyngeal Impairment Moderately Impaired Pharyngeal Strategies Sitting Upright (90 deg) Double Swallow Effortful Swallow Small Bites and Sips Pharyngeal Phase Comments Consistent coughing/throat clearing observed with all trials of ice chips and thin liquids. Occasional delayed throat clearing with NTLs. Occasional wet vocal quality was observed throughout the evaluation with a variety of trials; this cleared with prompts for pt to clear her throat and swallow. Pt c/o sticking sensation with diced peaches and soft cookie, with cleared with either second swallow or liquid wash. The pt was able to perform double swallow, although she c/o mild discomfort in doing so. No overt s/sx of aspiration observed with pureed texture. Pt was educated on s/sx of dysphagia/aspiration, aspiration risks/precautions, evaluation results and recommendations including modified diet/liquid, compensatory swallow strategies to clear suspected pharyngeal residue (i.e., double swallow and/or liquid wash), and recommendation for Modified Barium Swallow Study for more thorough evaluation to guide POC and DC planning. She verbalized understanding of all and was in agreement with recommendations. Nsg, Rehab Mgr, and CM were all notified as well. Findings Dysphagia Type Moderate Pharyngeal Dysphagia Rehabilitation Potential Good Impressions Moderate Pharyngeal Dysphagia s/p ACDF surgery and characterized by reduced airway protection and pharyngeal clearance as indicated by coughing and/or throat clearing, either immediate or delayed, as well as sticking sensations and wet vocal quality post-swallow. Suspect pharyngeal swelling may be present secondary to surgery and impacting strength , coordination and/or ROM of pharyngeal and laryngeal musculature to perform adequate swallow. The pt's airway is compromised, and MBS is recommended for further evaluation of aspiration risk and to guide POC and DC planning. Dysphagia therapy is recommended for ongoing assessment, education, and training of compensatory swallow strategies to protect airway over course of healing. Diet Recommendations Liquids Order [place] Diet Order Dysphagia Mechanical Medication Recommendations As Tolerated Additional Dietary Needs Reminders to Use Strategies Aspiration Precautions Recommended Precautions Upright at 90 Degrees Small Bites/Sips Effortful Swallow Double Swallow Treatment Plan Placement Recommendations after Home Discharge Home with Home Health Outpatient Therapy Appropriate for Therapy Yes Therapy Recommendations Ongoing assessment, education, and training of compensatory swallow strategies to protect airway over course of healing Dysphagia Goals Pt will use compensatory swallow strategies independently to reduce risk of aspiration and increase comfort with swallow. Pt will participate in MBS, if MD in agreement, for further evaluation of aspiration risk and to guide POC and DC planning. WEAVER NEEDLE LOOM Follow Up Over course of hospital stay; Outpatient or Home Health post hosp dc
[2019-03-24] MEDS: ACETAMINOPHEN 325 MG TABLET 650 MG PO (10:50)
--- NOTE | 2019-03-24 11:03 | PC.NURSE ---
Assumed care of patient at 1015 from Yohannes DEVRIES. Patient ambulating in martínez with therapy gait steady. Denies chest pain and shortness of breath, sats on RA 95%. Collar in place, dressings intact to neck. Patient requesting tylenol for neck pressure that goes along the back of neck. New order for tylenol received, 650mg given. Patient aware of NPO status and to call before ambulating, patient verbalized understanding.
--- NOTE | 2019-03-24 11:52 | PT.IPTN ---
Current Diagnoses Spinal stenosis, cervical region (03/21/19) Strain of muscle, fascia and tendon at neck level, initial encounter (03/21/19) Surgery Performed Operation Date: 03/21/19 10:15 Actual Procedures p C4-5,C5-6,C6-7 Cervical Fusion Anterior/Posterior Instru. & bone graft - Dl Jules MD Physical Therapy Treatment Note M2 PT-IP Current Condition Start: 03/21/19 16:59 Freq: NEEDED Status: Active Protocol: Document 03/23/19 11:46 RCC (Rec: 03/23/19 13:27 RCC [id number]) Physical Therapy Current Condition Current Condition Evaluation Date 03/23/19 Treatment Diagnosis C4-5, C5-6, C6-7 cervical fusion A/P, impaired activity tolerance Precautions Cervical Spine Precautions Soft Collar for Comfort No Heavy Lifting Log Roll Other Precautions monitor for chest pain M3 PT-IP Subjective Start: 03/21/19 16:59 Freq: NEEDED Status: Active Protocol: Document 03/24/19 09:45 CLB (Rec: 03/24/19 11:52 CLB [id number]) Subjective Physical Therapy Visit Type Type Treatment Note Visit Start Time 09:45 Visit Stop Time 10:05 Total Visit Minutes 20 Number of MAGAZINE SUPERVISOR Visits 2 Physical Therapy Visit Comments Patient Comments agreeable to ambulate with therapy. M4 PT-IP Mobility and Gait Start: 03/21/19 16:59 Freq: NEEDED Status: Active Protocol: Document 03/24/19 09:45 CLB (Rec: 03/24/19 11:52 CLB [id number]) PT-Bed Mobility Assessment Supine to Sit Supine to Sit Independent Head of Bed Elevated Bedrails Scooting Scooting to Edge of Bed Independent PT-Transfer Assessment Sit to and From Stand Sit to and from Stand Independent Equipment Transfer Assistive Device Gait Belt Front Wheeled Walker Transfers Transfer Destination Chair Transfer Technique Stand Step Pivot Transfer Ability Level of Assist Standby Assistance Gait Assessment Gait Gait Assistance Required: Standby Assistance Distance (Feet) 125 Assistive Devices Assistive Device Gait Belt Front Wheeled Walker Gait Deviations General Gait Pattern Decreased Stride Length Decreased Feet Clearance Flexed Trunk Factors Limiting Gait Function Factors Limiting Gait Function Decreased Activity Tolerance Decreased Strength Comments Gait Comments Pt able to ambulate without need of rest break but will lean down on forearms to relieve LBP during ambulation. M5 PT-IP Objective Assessments Start: 03/21/19 16:59 Freq: NEEDED Status: Active Protocol: Document 03/23/19 11:46 RCC (Rec: 03/23/19 13:27 RCC [id number]) Orientation Orientation/Cognition Level of Alertness Alert Orientation Name Age Birthday Month Date Year Day of Week Place Situation Sensation Assessment Sensation Gross Sensation WNL Comments Sensation Comments denies numbness/tingling M6 PT-IP Treatment Start: 03/21/19 16:59 Freq: NEEDED Status: Active Protocol: Document 03/24/19 09:45 CLB (Rec: 03/24/19 11:52 CLB [id number]) Physical Therapy Treatment Exercises Exercises Ankle Pumps Quad Sets Seated Knee Flexion/Extension M7 PT-IP Assessment and Plan Start: 03/21/19 16:59 Freq: NEEDED Status: Active Protocol: Document 03/24/19 09:45 CLB (Rec: 03/24/19 11:52 CLB [id number]) PT Summary Assessment and Plan Potential Rehabilitation Potential Good Status of Condition at Evaluation Stable Summary Impairments Pain Strength Balance Gait Activity Tolerance Assessment Summary Pt is independent with all bed mobility and sit<>stand. Pt ambulated ~125ft with FWW as pt perfers FWW over 4WW. Pt O2 saturation during activity on RA 96% and HR 120 bpm, pt recovered to 83 bpm after 2 minutes of seated rest. Goals Bed Mobility Goal Standby Assistance Transfer Goal Standby Assistance Gait Goal Standby Assistance Four Wheel Walker Gait Distance 150 Days to Meet Goals 5 Frequency of Treatment Frequency Of Treatment Twice a Day Treatment Plan Physical Therapy Treatment Plan Bed Mobility Training Transfer Training Gait Training Balance Retraining Post Op Education Discharge Planning Neuromuscular Re-ed Recommendations To Nursing Amount of Assist Needed 1 Person Assist Discharge Recommendations PT Discharge Recommendations Home with Assistance
[2019-03-24] MEDS: HYDROCODONE/ACET 5/325 TABLET 1 TAB PO ×2 (13:16→21:26)
--- NOTE | 2019-03-24 14:12 | PT.IPTN ---
Current Diagnoses Spinal stenosis, cervical region (03/21/19) Strain of muscle, fascia and tendon at neck level, initial encounter (03/21/19) Surgery Performed Operation Date: 03/21/19 10:15 Actual Procedures p C4-5,C5-6,C6-7 Cervical Fusion Anterior/Posterior Instru. & bone graft - Dl Jules MD Physical Therapy Treatment Note M2 PT-IP Current Condition Start: 03/21/19 16:59 Freq: NEEDED Status: Active Protocol: Document 03/23/19 11:46 RCC (Rec: 03/23/19 13:27 RCC [id number]) Physical Therapy Current Condition Current Condition Evaluation Date 03/23/19 Treatment Diagnosis C4-5, C5-6, C6-7 cervical fusion A/P, impaired activity tolerance Precautions Cervical Spine Precautions Soft Collar for Comfort No Heavy Lifting Log Roll Other Precautions monitor for chest pain M3 PT-IP Subjective Start: 03/21/19 16:59 Freq: NEEDED Status: Active Protocol: Document 03/24/19 13:45 CLB (Rec: 03/24/19 14:11 CLB [id number]) Subjective Physical Therapy Visit Type Type Treatment Note Visit Start Time 13:45 Visit Stop Time 14:00 Total Visit Minutes 15 Number of BATTERY ASSEMBLER PLASTIC Visits 3 Physical Therapy Visit Comments Patient Comments agreeable to ambulate with therapy. Therapy Pain Assessment Pain When Pain Assessed During Mobility Pain Present Pain Present Pain Reported Location Neck Intensity 5 Scale Used Numeric (1 - 10) M4 PT-IP Mobility and Gait Start: 03/21/19 16:59 Freq: NEEDED Status: Active Protocol: Document 03/24/19 13:45 CLB (Rec: 03/24/19 14:11 CLB [id number]) PT-Bed Mobility Assessment Supine to Sit Supine to Sit Independent Head of Bed Elevated Scooting Scooting to Edge of Bed Independent PT-Transfer Assessment Sit to and From Stand Sit to and from Stand Independent Equipment Transfer Assistive Device Gait Belt Front Wheeled Walker Transfers Transfer Destination Bed Transfer Technique Stand Step Pivot Transfer Ability Level of Assist Standby Assistance Gait Assessment Gait Gait Assistance Required: Standby Assistance Distance (Feet) 150 Assistive Devices Assistive Device Gait Belt Front Wheeled Walker Gait Deviations General Gait Pattern Decreased Stride Length Decreased Feet Clearance Flexed Trunk Factors Limiting Gait Function Factors Limiting Gait Function Decreased Activity Tolerance Decreased Strength M5 PT-IP Objective Assessments Start: 03/21/19 16:59 Freq: NEEDED Status: Active Protocol: Document 03/23/19 11:46 RCC (Rec: 03/23/19 13:27 RCC [id number]) Orientation Orientation/Cognition Level of Alertness Alert Orientation Name Age Birthday Month Date Year Day of Week Place Situation Sensation Assessment Sensation Gross Sensation WNL Comments Sensation Comments denies numbness/tingling M6 PT-IP Treatment Start: 03/21/19 16:59 Freq: NEEDED Status: Active Protocol: Document 03/24/19 13:45 CLB (Rec: 03/24/19 14:11 CLB [id number]) Physical Therapy Treatment Exercises Exercises Quad Sets M7 PT-IP Assessment and Plan Start: 03/21/19 16:59 Freq: NEEDED Status: Active Protocol: Document 03/24/19 13:45 CLB (Rec: 03/24/19 14:11 CLB [id number]) PT Summary Assessment and Plan Potential Rehabilitation Potential Good Status of Condition at Evaluation Stable Summary Impairments Pain Strength Balance Gait Activity Tolerance Assessment Summary Pt ambulates with forward lean and continues to stop and rest forearms on walker to relieve back pain. Pt has good safety awareness and is Independent with all bed mobility and transfers. Goals Bed Mobility Goal Standby Assistance Transfer Goal Standby Assistance Gait Goal Standby Assistance Four Wheel Walker Gait Distance 150 Days to Meet Goals 5 Frequency of Treatment Frequency Of Treatment Twice a Day Treatment Plan Physical Therapy Treatment Plan Bed Mobility Training Transfer Training Gait Training Balance Retraining Post Op Education Discharge Planning Neuromuscular Re-ed Recommendations To Nursing Amount of Assist Needed 1 Person Assist Discharge Recommendations PT Discharge Recommendations Home with Assistance
--- NOTE | 2019-03-24 14:35 | OT.IP.EVAL ---
Current Diagnoses Spinal stenosis, cervical region (03/21/19) Strain of muscle, fascia and tendon at neck level, initial encounter (03/21/19) Surgery Performed Operation Date: 03/21/19 10:15 Actual Procedures p C4-5,C5-6,C6-7 Cervical Fusion Anterior/Posterior Instru. & bone graft - Dl Jules MD Past Medical History (Last Reviewed 03/22/19 @ 13:22 by Evelyn Cruz MD) Anemia (Acute) Arthritis (Acute) Chronic UTI (Acute) Diabetes mellitus, type II (Acute) Encephalitis (Acute ~1984) Gout (Acute) HTN (hypertension) (Acute) Hearing impaired (Acute) Numbness (Acute) Osteoarthritis (Acute) Sleep apnea (Acute) Sterilization (Acute ~1969) Surgical History (Last Updated 03/18/19 @ 14:36 by Charlotte Schofield RN) History of arthroplasty of left knee (Acute 06/03/15) History of arthroplasty of right knee (Acute ~2013) History of bilateral salpingo-oophorectomy (BSO) (Acute ~10/2015) History of lumbar fusion (Acute ~1995) History of lumbar laminectomy for spinal cord decompression (Acute ~2003) Hx of tonsillectomy (Acute) Status post epidural steroid injection (Acute) History of cataract removal with insertion of prosthetic lens Status post endometrial ablation (~1990) Occupational Therapy Inpatient Evaluation/Re-Eval M1 PT/OT-IP Prior Functional Status Start: 03/22/19 13:22 Freq: NEEDED Status: Active Protocol: Document 03/24/19 10:15 [facility] (Rec: 03/24/19 14:35 [facility] [id number]) Medical Review Prior Functional Status Mobility and Gait mod indep with occasional 4WW use d/t chronic LBP Activities of Daily Living and IADL's mod indep I/ADLs including driving Social History Household Members family Living Arrangements House Number of Floors (Floors) One Floor Number of Stairs To Enter/Railing? ramped entry; sleeps in a recliner Home Environment Walk in Shower Ramp Home Equipment Four Wheel Walker Straight Cane Shower Seat with Backrest Additional Social History Comment Pt underwent C4-5, C5-6, C6-7 cervical fusion anterior/ posterior instrumentation and bone graft on 03/21/19. Pt had an episode of chest pain, was relieved with nitro, no acute findings in echo or troponins M2 OT-IP Current Condition Start: 03/22/19 13:22 Freq: Status: Active Protocol: Document 03/24/19 10:15 [facility] (Rec: 03/24/19 14:35 [facility] [id number]) Occupational Therapy Current Condition Current Condition Evaluation Date 03/24/19 Treatment Diagnosis C4-C7 ACDF Diagnosis Onset Date 03/21/19 Post Operative Precautions Cervical Spine Precautions Soft Collar for Comfort No Heavy Lifting Log Roll M3 OT- IP Subjective and Pain Start: 03/22/19 13:22 Freq: Status: Active Protocol: Document 03/24/19 10:15 [facility] (Rec: 03/24/19 14:35 [facility] [id number]) OT- Subjective Occupational Therapy Visit Type Type Initial Evaluation Visit Start Time 10:15 Visit Stop Time 10:40 Total Visit Minutes 25 Occupational Therapy Visit Comments Patient Comments Pt in pain but agreeable to work with OT for eval. OT Pain Assessment Pain When Pain Assessed At Rest Pain Present Pain Present Pain Reported Location Neck Intensity 8 Scale Used Numeric (1 - 10) M4 OT- IP ADL's Start: 03/22/19 13:22 Freq: Status: Active Protocol: Document 03/24/19 10:15 [facility] (Rec: 03/24/19 14:35 [facility] [id number]) OT [id number] Comments OT Self-Feeding Comments Currently pt on nectar liquids per FENCE MAKING MACHINE OPERATOR eval. OT ADL-Dressing General Eval Upper Body Dressing Ability Moderate Assistance Lower Body Dressing Ability Maximum Assistance Comments OT Dressing Comments Pt did not want to try and states will have family to assist for all needs. Pt needing assist to albina/doff soft collar due to unable to reach up and around her neck to adjust the brace. Pt not wanting to use any AED for dressing needs and insistent that her family will assist at home. OT ADL-Toileting Comments OT Toileting Comments Pt not wanting to go at this time. OT ADL-Bathing Comments OT Bathing Comments Pt states to try tomorrow. Pt has a shower chair with back and walk in shower at home. M5 OT- IP IADL's Start: 03/22/19 13:22 Freq: Status: Active Protocol: Document 03/24/19 10:15 [facility] (Rec: 03/24/19 14:35 [facility] [id number]) OT-Instrumental Activities of Daily Living Medication Management Medication Management No Deficits Identified Money Management Money Management No Deficits Identified Meal Preparation Meal Preparation Caregiver Provides Assist Steel Die Press Set Up Operator Steel Die Press Set Up Operator Caregiver Provides Assist M6 OT- IP Functional Cognition Start: 03/22/19 13:22 Freq: Status: Active Protocol: Document 03/24/19 10:15 [facility] (Rec: 03/24/19 14:35 [facility] [id number]) Cognitive Factors Limiting Selfcare Function Cognitive Ability Level of Alertness Alert Patient Orientation Name Place Situation Attention Span Ability Capable of Focused Attention Capable of Sustained Attention Ability to Follow Commands Able to Follow Multi-Step Commands Memory Description No Deficits Noted Safety Awareness No Deficits Noted Cognitive Comments Cognitive Assessment Comments Pt no deficits noted at this time. OT- Vision and Hearing OT- Hearing Assessment OT- Hearing Assessment WFL M7 OT- IP Mobility and Balance Start: 03/22/19 13:22 Freq: Status: Active Protocol: Document 03/24/19 10:15 [facility] (Rec: 03/24/19 14:35 [facility] [id number]) OT- Bed Mobility Assessment Supine to Sit Supine to Sit Assist Standby Assistance Head of Bed Elevated Sit to Supine Sit to Supine Assist Standby Assistance Head of Bed Elevated OT-Transfer Assessment Comments Mobility Comments Pt only wanting to sit on the edge of the bed to practice to albina/doff soft collar. M8 OT- IP Objective Assessments Start: 03/22/19 13:22 Freq: Status: Active Protocol: Document 03/24/19 10:15 [facility] (Rec: 03/24/19 14:35 [facility] [id number]) OT Gross Range of Motion Upper Extremity Range of Motion Assessment Bilaterally Impaired OT Strength Comments Strength Comments NOt able to formally assess, WFL for bed mobility needs. M9 OT- IP Assessment and Plan Start: 03/22/19 13:22 Freq: Status: Active Protocol: Document 03/24/19 10:15 [facility] (Rec: 03/24/19 14:35 [facility] [id number]) OT Summary Assessment and Plan Potential Rehabilitation Potential Good Analytic Complexity at Evaluation Low Summary OT Impairments Pain Dressing Toileting Bathing Shower Transfers Progress Towards Goals Slow Progress due to Pain Slow Progress due to Medical Issues Assessment Summary Pt low complexity and main barrier is pain , now needing to have nectar liquids due to difficulty swallowing, and one person assist for ADl's. Pt looking to go home with assist when medically stable. Goals Self-Feeding Goal Independent Grooming Goal Independent Dressing Goal Minimal Assistance Toileting Goal Independent Bathing Goal Standby Assistance Toilet Transfer Goal Independent Shower Transfer Goal Independent Patient/Caregiver Education Goal Caregiver Independent Assisting Patient Days to Meet Goals 3 Frequency of Treatment Frequency Of Treatment Once a Day Treatment Plan OT Treatment Plan ADL Training Functional Mobility Patient/Family Education Discharge Planning Other Treatment Recommendations and Next Shower Treatment Focus Discharge Recommendations OT Discharge Recommendations Home with Assistance
--- NOTE | 2019-03-24 14:56 | CM.DANOTE ---
DCP/Assessment: Reviewed chart. Patient is a 79yr old female admitted [facility] for spinal surgery performed on 03-21-[address] Jules. PCP is Dr. Malhotra. Primary payor is 1)Medicare 2)[facility]. Met with patient explained CM/SW role. Patient resting in bed comfortably with neck brace in place. Patient alert and oriented during interview. Patient reports that she plans to d/c home when medically stable. Patient resides with her son whom his currently out of town. Patient does report that she has family support that lives nearby and close friend/Bhavna. Patient undergoing cardiac work up today. Also seen by speech therapy and MBS recommended. Patient reports that she plans to do all therapy after hospitalization as outpatient. Patient has FWW and does not anticipate any d/c planning needs. Notified patient that CM team would continue to follow closely. P: Anticipate home when medically stable. Patient undergoing stress test today. Unclear if cardiac cath will be needed. KENN Yeboah Discharge Planning/Care Management CM Discharge Assessment Start: 03/24/19 14:37 Freq: Status: Active Protocol: Document 03/24/19 14:37 KJS (Rec: 03/24/19 14:56 KJS [id number]) Discharge Planning Assessment Assigned Sole Ruffer KENN Yeboah Advance Directives? Yes Advance Directives on File No History Provided By Patient Prior Living Arrangements House Household Members family Independent with ADL's Yes Is patient alert and oriented? Yes Caregiver for Another No DME Already Rented / Owned FWW / Walker Patient/Family Preference OP PT Therapy Barriers to Discharge Yes Comment Cardiac work up in progress Discharge Plan Home Transportation Arrangement Family/friends to provide transport. Whiteboard Updated in Patient Room with Yes name and ext. # of Sole Ruffer Review Status In Process Next Review Type Continued Stay Review Pre-Anesthesia Assessment Start: 03/18/19 13:32 Freq: Status: Complete Protocol: Document 03/18/19 13:32 CAB (Rec: 03/18/19 14:36 CAB [id number]) Pre-Anesthesia Assessment PAC Comment Elevated WBC, pt to have redraw prior to surgery Patient Information Reviewed Via Phone Assessment Assessment Completed With Patient Diagnostic Results BMP/CMP CBC EKG Urinalysis Comment Outside labs/EKG scanned to record Primary Care Provider Jim Malhotra Medical Clearance Received Yes Seen Specialist in Last 12 Months Yes Specialist Seen [place] Machine Operator Orthopedist Comment PCP pre-op/clearance 02/26/19 scanned to record Primary Language Luxembourgish Software Quality Manager Required No Height 162.56 cm Weight 110.223 kg Body Mass Index (BMI) 41.7 Hearing Ability Hard of Hearing Use of Hearing Aid Visual Assist Glasses Barriers to Learning Age related Memory Other Aids Yes: CPAP Hx Anesthesia Reactions Yes: Reaction to narcotics, hallucinations, agitation, memory loss Hx Family Anesthesia Reaction No Hx Malignant Hyperthermia No Hx Blood Transfusions Yes: s/p back surgery 1995- autologous Hx Blood Transfusion Reaction No Anesthesia Review Requested No Recovery Advocate No Alcohol Intake Frequency Other: None Smoking Status Never smoker Substance Use Type does not use other Comment CBD oil for hands Pain Present Pain Reported Musculoskeletal Symptoms Back Pain Difficulty Walking Joint Pain Muscle Weakness Neck Pain Numbness Radiating Pain into Limb Tingling History of Falling (Recent or History of Yes ) Patient is completely paralyzed or No completely immobile Prosthesis or Orthotic Device Front Wheel Walker Mental Status Oriented to own ability Comment Unsteady on feet Is patient on oxygen? No Does patient have BROOKE/SOB No Hx Sleep Apnea Yes CPAP/BIPAP use prescribed and used routinely Will Bring CPAP/BIPAP DOS Yes Currently Taking a Beta Rachell No Can You Climb a Flight of Stairs Without No SOB Hx Chest Pain No Hx SOB No Hx Syncope or Dizziness No Anti-Coagulant Therapy No Has a Cover Marker No Cardiac Testing No Hx Pacemaker/ICD No Pacemaker Rep Required? No Cardiac Clearance Received Not Applicable Diet Type At Home Low Carb dysphagia No Urinary Catheter Present No Hx Urinary Self Catheterization No Diabetes Yes: Pt checks blood sugar every morning HgbA1C 6.2 Patient No Lactating No Hx Drug Resistant Organism No Presence of External or Internal Medical Yes: CPAP, bilat knee, lumbar Devices hardware, bilat eye lens Have you traveled outside the [facility] in the last 30 days? Marital Status / Lives With family Prior Living Arrangements House Support System Child/Children Family Does the Patient Have Assistance After Yes Surgery Patient Discharge Plan Description Return Home Comment Pt advised 1-2 day length of stay per surgeon's office Feels Safe in Current Environment Yes Been Physically Hurt or Threatened By a No Person in Current Environment Do you have thoughts of harming yourself None or others? Are you currently considering suicide? No Do you have a plan to hurt yourself or No Plan others? Do You Have Any Spiritual Beliefs That No May Affect Your HC Choices? Do You Have Any Cultural Practices That No May Affect Your HC Choices? Spiritual Referral None Who Can We Speak to About Patient's Care Family, friends Identifying Code for Release of Patient Declines to issue Information Health Care Proxy/Next of Kin Romulo (son) Health Care Proxy Phone Number Pt to update dos Emergency Contact Name Romulo (son) Emergency Contact Phone Number Pt to update dos Advance Directives? Yes Advance Directives on File No Requested Patient Bring Advanced Yes Directives DOS Power of J2Ee Developer No PAC Instructions Durable medical equipment Medications to take/avoid Nasal antibiotic No ETOH/petroleum product on skin DOS NPO Pre-surgical wash Sensory aids Sturdy shoes/comfortable clothes Do not bring valuables and remove jewelry
--- NOTE | 2019-03-24 16:19 | PM.PNPO.1 ---
Subjective Date Patient Seen: 03/24/19 Time Patient Seen: 16:19 Interval history: She is doing better. Not having any chest pain today. Just some pain at the base of the neck and upper shoulders. Exam Vital Signs (past 8 hours): - 03/24/19 11:10 03/24/19 11:20 03/24/19 15:53 Temperature 98.8 F 97.8 F Pulse Rate 72 70 Respiratory Rate 16 18 Blood Pressure 135/73 145/85 H Pulse Oximetry 95 94 95 Fraction of Inspired Oxygen 21 Oxygen Delivery Method Room Air Oxygen Flow Rate 0 Back/Spine/Pelvis Other: Dressing CDI. 5/5 motor both upper extremities Objective Labs Result Diagrams: 03/22/19 12:07 03/22/19 12:07 Assessment & Plan Post-op Postoperative Procedures Operation Date: 03/21/19 10:15 Actual Procedures Side Surgeon p C4-5,C5-6,C6-7 Cervical Fusion Anterior/Posterior Instru. & bone graft Dl Jules MD Stable from a spinal standpoint. Her chest pain seems to be resolving. Her echocardiogram did not show any acute abnormality but did have some aortic stenosis. We are waiting on her V/Q scan tomorrow, although likelihood is low. If all this comes out okay, she could be discharged home tomorrow. Quality VTE Deep Vein Thrombosis/Pulmonary Embolism Present on Admission: No
--- NOTE | 2019-03-24 17:17 | PC.NURSE ---
Evening note: Kaela resting in bed, dozing occasionally. Wakes to voice, is oriented x3 and situation. Transfered to recliner before meal. She denies any SOB or chest pain, denies chest pressure. Tele sinus with rate of 74 bpm, BP 145/85. Other vitals stable. Still no BM, refused Miralax for now, requested to sip on prune juice instead. Denies other needs/concerns, calling appropriately when needs assistance. Fall precautions in place.
--- NOTE | 2019-03-24 17:52 | P.PN_ITS ---
Subjective Date Patient Seen: 03/24/19 Interval history: Kaela Pedraza is a 79-year-old female with a past medical history significant for hypertension, hyperlipidemia, and diabetes mellitus type 2, insulin using, who is status post a C2-C7 cervical diskectomy and fusion with cages in which the Medicine team was consulted for postoperative chest pain and pressure. The patient is resting in bedside chair comfortably. The patient is sitting in bedside chair comfortably. She reports chest pain/pressure overnight. The chest pain is located substernally and radiates to both shoulders bilaterally. She has no associated diaphoresis or shortness of breath. She continues to have associated nausea and diaphoresis. Informed patient to notify nurse and doctor of CP so that we may treat accordingly. Discussed plan going forward at recommendation of Cardiology who recommends rule out PE and pursue stress test while inpatient. She currently denies headache, shortness of breath, chest pain, abdominal pain, nausea, vomiting, fever, chills, dysuria, or diarrhea. She has not had BM yet but does not feel constipated. A prophylactic bowel regimen was implemented. She is voiding without difficulty. She is up ambulating with assistance. Exam Vital Signs (past 8 hours): - 03/24/19 11:10 03/24/19 11:20 03/24/19 15:53 Temperature 98.8 F 97.8 F Pulse Rate 72 70 Respiratory Rate 16 18 Blood Pressure 135/73 145/85 H Pulse Oximetry 95 94 95 Fraction of Inspired Oxygen 21 Oxygen Delivery Method Room Air Oxygen Flow Rate 0 Narrative Exam Narrative: General: Elderly female sitting in bedside chair and in no acute distress, well-developed, well-nourished, appropriately interactive. HEENT: Normocephalic, atraumatic. External ears without defect. Pupils equal, round, and reactive to light. Anicteric sclerae, moist conjunctivae, and no lid lag. Neck brace in place. Mild laryngitis. Neck: Supple with full range of motion. No lymphadenopathy or thyromegaly. Cardiovascular: Regular rate and rhythm without murmurs, rubs, or gallops appreciated Pulmonary: Clear to auscultation bilaterally without crackles, wheezes, or rhonchi. Normal respiratory effort with no use of accessory muscles. Not on oxygen. Abdomen: Soft, bowel sounds present, nontender, nondistended. No hepatosplenomegaly or masses appreciated. Extremities: No clubbing, cyanosis, or edema. Skin: Normal temperature, turgor, and texture; no rash, ulcers, or subcutaneous nodules appreciated. Neurological: Cranial nerves grossly intact. Psychiatric: Normal mood and affect. Alert and oriented to person, place, and time. Objective Labs Result Diagrams: 03/25/19 04:59 03/25/19 04:59 Assessment & Plan Assessment & Plan narrative: Kaela Pedraza is a 79-year-old female with a past medical history significant for hypertension, hyperlipidemia, and diabetes mellitus type 2, insulin using, who is status post a C2-C7 cervical diskectomy and fusion with cages in which the Medicine team was consulted for postoperative chest pain and pressure. 1. Postoperative chest pain, not present on admission. Resolved. -Patient had postoperative cheat pain and pressure radiating to shoulders with associated nausea, diaphoresis, and shortness of breath. Cardiac risk factors include: Hypertension, hyperlipidemia, diabetes mellitus type 2, SUKHWINDER, morbid obesity, and gout. -Serial troponin x 2 < 0.012. -EKG's did not demonstrate any acute ischemic changes. -D-dimer elevated at 682. -Patient received nitro SL and morphine with improvement. Continue to treat ches t pain as needed will oxygen, nitroglycerin, morphine, and EKG. -Discussed case with cardiology who recommends that even though there is low probability of PE the patient is at higher cadiac risk, therefore, rule out PE with V/Q scan and if intermediate probability purse premedicated (iodine allergy ) CTA and treat PE if present. If V/Q low probability then pursue NM stress test while inpatient and possible cardiac cath if abnormal. -NPO at midnight for V/Q scan tomorrow (shortage of isotope today and not obtained). 2. Acute hyponatremia, likely present on admission. Resolved. -Continue to monitor sodium periodically. Continue IV fluids until adequately hydrated. Encouraged PO intake of fluids. 3. Hypertension, chronic, present on admission. Stable. -Currently not medically treated. COntinue to monitor BP closely and treat as indicated. 4. Hyperlipidemia, chronic, present on admission. Stable. -Continue simavastatin 20 mg daily at bedtime. 5. Diabetes mellitus type 2, insulin using, present on admission. Stable. -Unclear baseline glycemic control. Ordered hemoglobin A1c, pending. -Held metformin and may be restarted time of discharge. -Continue ACHS blood glucose checks and high-dose correction scale insulin. 6. Morbid obesity, chronic, present on admission. Stable. -BMI 42. -Counseled patient on lifestyle modification including diet and exercise. 7. Cervical osteoarthritis, status post cervical diskectomy and fusion, present on admission. Active. -Continue pain and postoperative management for Ortho. Follow up with Dr. Gardner as advised. Thank you for consulting our services. We will continue to follow along with you. Quality VTE Deep Vein Thrombosis/Pulmonary Embolism Present on Admission: No
[2019-03-24] MEDS: INSULIN GLARGINE 100 UNIT/ML 3ML PEN 24 UNIT SUBCUT (21:23)
[2019-03-24] MEDS: SIMVASTATIN 20 MG TABLET PO (21:26)
[2019-03-24] MEDS: cephALEXin 250 MG CAPSULE 500 MG PO (21:26)
[2019-03-24] MEDS: ALLOPURINOL 300 MG TABLET PO (21:26)
[2019-03-24] MEDS: GABAPENTIN 600 MG TABLET 1200 MG PO (21:26)
[2019-03-25 00:50] VITALS: BP 152/92; PULSE 76; RESP 18; TEMP 36.9; O2SAT 96
--- NOTE | 2019-03-25 01:33 | PC.NURSE ---
Addendum entered by Selena Sanchez R.N. 03/25/19 06:51: Went to check on patient to reassess pain/anxiety and patient is asleep in recliner. Addendum entered by Selena Sanchez R.N. 03/25/19 06:08: Has been sitting up in chair for past couple hours, sleeping at intervals. 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 Patient states she is having pain in anterior neck across to left shoulder and also complains of anxiety. Not wanting to take po pain meds as doesn't want to drink thickened liquids but agreeable to taking po meds with ice cream. Medicated with Vicodin + Valium. Original Note: Patient is alert and oriented. Breath sounds CTA with RA sat of 96%; using CPAP for sleep. HRR but BP has been elevated and is currently 152/92. Telemetry reading was SR. Denies nausea. BT present and states she had a BM yesterday. Denies dysuria, frequency or urgency. Is able to turn self in bed. Up to bathroom with walker and SBA. Denies pain. Dressings to anterior neck and posterior upper back is CDI. Bruising noted on right side of neck; currently has soft collar off. Refusing SCD's. On dysphagia diet with nectar thick liquids but states she dislikes the nectar thick so isn't drinking much. Fall risk score is high and bed alarm is activated.
[2019-03-25 03:46] VITALS: BP 156/85; PULSE 84; RESP 18; TEMP 36.7; O2SAT 97
[2019-03-25 05:47] LABS: Add Manual Diff / Slide Review NO; Basophils Absolute Auto 100 /uL (0-100); Basophils Percent Auto 0.6 % (0-2); Eosinophils Absolute Auto 200 /uL (0-450); Hematocrit 37.9 % (36-46); Hemoglobin 12.5 g/dL (12.0-16.0); Lymphocytes Absolute Auto 1400 /uL (1100-4500); Lymphocytes Percent Auto 14.7 % (25-40); Mean Corpuscular Hemoglobin 29.3 PG (26-34); Mean Corpuscular Volume 88.7 fL (80-100); Monocytes Absolute Auto 600 /uL (0-900); Neutrophils Absolute Auto 7000 /uL (1500-7000); Neutrophils Percent Auto 75.7 % (50-75); Platelet Count 163 X10^3/uL (150-400); Red Blood Cell Count 4.27 X10^6/uL (4.0-5.2); Red Cell Distribution Width 16.1 % (11.6-14.8); White Blood Cell Count 9.3 X10^3/uL (4.5-11.0)
[2019-03-25 05:52] LABS: Alanine Aminotransferase 22 IU/L (9-52); Albumin 3.6 g/dL (3.5-5.0); Albumin Globulin Ratio 1.2 (1.0-2.8); Alkaline Phosphatase 114 U/L (38-126); Aspartate Aminotransferase 32 IU/L (14-36); BUN Creatinine Ratio 23.8 (6-22); Bilirubin Total 0.9 mg/dL (0.2-1.3); Blood Urea Nitrogen 19 mg/dL (7-17); Calcium 9.5 mg/dL (8.4-10.2); Carbon Dioxide 33 mmol/L (22-32); Chloride 98 mmol/L (98-107); Estimated Glomerular Filt Rate > 60.0 mL/min (>60); Globulin 3.1 g/dL (1.7-4.1); Glucose 126 mg/dL (80-110); HEMOLYSIS < 15 (0-50); Magnesium 1.5 mg/dL (1.6-2.3); Potassium 4.2 mmol/L (3.4-5.1); Sodium 138 mmol/L (137-145); Total Protein 6.7 g/dL (6.3-8.2)
[2019-03-25] MEDS: HYDROCODONE/ACET 5/325 TABLET 1 TAB PO (06:06)
[2019-03-25] MEDS: diazePAM 2 MG TABLET PO (06:06)
--- NOTE | 2019-03-25 06:36 | PM.PNPO.1 ---
Subjective Date Patient Seen: 03/25/19 Time Patient Seen: 06:36 Interval history: She is feeling lousy. Pain in the neck. Pain goes over the right shoulder to about mid humerus. Feeling that chest pain again. Exam Vital Signs (past 8 hours): - 03/25/19 00:50 03/25/19 03:46 Temperature 98.4 F 98.0 F Pulse Rate 76 84 Respiratory Rate 18 18 Blood Pressure 152/92 H 156/85 H Pulse Oximetry 96 97 Fraction of Inspired Oxygen 21 Oxygen Delivery Method Room Air Oxygen Flow Rate 0 Const Orientation: alert and oriented x3 Back/Spine/Pelvis Other: Dressing CDI. 5/5 motor both upper extremities except for 4/5 bilateral benefits consultant today Objective Labs Result Diagrams: 03/25/19 04:59 03/25/19 04:59 Labs: Laboratory Results - last 24 hr 03/25/19 03/25/19 04:59 04:59 WBC 9.3 RBC 4.27 Hgb 12.5 Hct 37.9 MCV 88.7 MCH 29.3 MCHC 33.0 RDW 16.1 H Plt Count 163 Neut % (Auto) 75.7 H Lymph % (Auto) 14.7 L [place] % (Auto) 7.0 Eos % (Auto) 2.0 Baso % (Auto) 0.6 Neut # (Auto) 7000 Lymph # (Auto) 1400 [place] # (Auto) 600 Eos # (Auto) 200 Baso # (Auto) 100 Sodium 138 Potassium 4.2 Chloride 98 Carbon Dioxide 33 H BUN 19 H Creatinine 0.80 Estimated GFR > 60.0 BUN/Creatinine Ratio 23.8 H Glucose 126 H Calcium 9.5 Magnesium 1.5 L Total Bilirubin 0.9 AST 32 ALT 22 Alkaline Phosphatase 114 Total Protein 6.7 Albumin 3.6 Globulin 3.1 Albumin/Globulin Ratio 1.2 Assessment & Plan Post-op Postoperative Procedures Operation Date: 03/21/19 10:15 Actual Procedures Side Surgeon p C4-5,C5-6,C6-7 Cervical Fusion Anterior/Posterior Instru. & bone graft Dl Jules MD still waiting on her V/Q scan today, but low likelihood of PE at this point. Still having ongoing unstable angina. Neck pain normal postoperatively, may be having some inflammation causing the right shoulder pain or this may be just referred from the neck. She is far enough out that if she does need blood thinners for any further treatment she could have them. Quality VTE Deep Vein Thrombosis/Pulmonary Embolism Present on Admission: No
[2019-03-25 06:59] LABS: Hemoglobin A1C% w Est Avg Glu 6.1 % (4.0-6.0)
[2019-03-25 07:50] VITALS: BP 125/69; PULSE 77; RESP 16; TEMP 36.8; O2SAT 96
--- NOTE | 2019-03-25 08:00 | DI.NM.S_ITS ---
PROCEDURE: NM PUL VENT AND PERFUSION RADIOPHARMACEUTICAL: 37.1 mCi Tc-99m DTPA aerosol by inhalation and 9.9 mCi Tc-99m MAA intravenously. INDICATIONS: possible PE after surgery TECHNIQUE: Ventilation images were obtained first with Tc-99m DTPA aerosol. Subsequently, perfusion images were acquired after intravenous injection of Tc-99m MAA. Anterior, posterior, SPRING, MACEDONIAN, RPO, LPO, left and right lateral views were obtained. COMPARISON: [facility], CR, XR CHEST 1V, 03/24/2019, 9:58. FINDINGS: The ventilatory images are markedly suboptimal. Matched defect involving the posterior left upper lobe. No definite mismatched defects identified. IMPRESSION: Low probability V/Q scan as above. However, the ventilatory images are markedly suboptimal, decreasing study sensitivity. If there is persistent high clinical concern, recommend further risk stratification with bilateral lower extremity ultrasound for DVT. Dictated by: Yifan Yousif M.D. on 03/25/2019 at 12:47 Approved by: Yifan Yousif M.D. on 03/25/2019 at 12:59
--- NOTE | 2019-03-25 09:02 | PC.NURSE ---
Addendum entered by Amisha Elliott R.N. 03/25/19 10:03: off of unit for barrium swallow w/ client support consultant Addendum entered by Amisha Elliott R.N. 03/25/19 09:06: patient has just arrived back from VQ scan. Original Note: Patient left for VQ scan at 0800. Prior to that she stated that she feels much better after the valium and vicodin given this am by noc shift RN. No cp, no sob, no n/v. Offered no complaints at that time. patient has not yet returned from study.
[2019-03-25] MEDS: ASPIRIN EC 81 MG TABLET PO (09:14)
[2019-03-25] MEDS: POLYETHYLENE GLYCOL 3350 17 GM POWD.PACK PO (09:14)
[2019-03-25] MEDS: SODIUM CHLORIDE 0.9% FLUSH 10 ML IV ×2 (09:14→19:28)
[2019-03-25] MEDS: DOCUSATE 100 MG CAPSULE PO ×2 (09:14→21:45)
[2019-03-25] MEDS: INSULIN ASPART 100 UNIT/ML INSULN PEN SUBCUT ×3 (09:14→18:12)
--- NOTE | 2019-03-25 09:18 | SLP.IPNOTE ---
Pt informed of MBS scheduled for 10:00 and given basic overview of procedure. She is in agreement to participate. Reviewed overnight Nsg note which stated pt was given meds in ice cream d/t dislike of NTL. Reminded Nsg this morning that ice cream is a thin liquid; anything that melts to thin liquid (Jell-O, ice chips etc.) is not consistent with NTL. Nurse Amisha verbalized understanding and in agreement.
--- NOTE | 2019-03-25 11:26 | PT.IPTN ---
Current Diagnoses Spinal stenosis, cervical region (03/21/19) Strain of muscle, fascia and tendon at neck level, initial encounter (03/21/19) Surgery Performed Operation Date: 03/21/19 10:15 Actual Procedures p C4-5,C5-6,C6-7 Cervical Fusion Anterior/Posterior Instru. & bone graft - Dl Jules MD Physical Therapy Treatment Note M2 PT-IP Current Condition Start: 03/21/19 16:59 Freq: NEEDED Status: Active Protocol: Document 03/23/19 11:46 RCC (Rec: 03/23/19 13:27 RCC [id number]) Physical Therapy Current Condition Current Condition Evaluation Date 03/23/19 Treatment Diagnosis C4-5, C5-6, C6-7 cervical fusion A/P, impaired activity tolerance Precautions Cervical Spine Precautions Soft Collar for Comfort No Heavy Lifting Log Roll Other Precautions monitor for chest pain M3 PT-IP Subjective Start: 03/21/19 16:59 Freq: NEEDED Status: Active Protocol: Document 03/25/19 11:25 CLB (Rec: 03/25/19 11:26 CLB [id number]) Subjective Physical Therapy Visit Type Type Patient Refusal Notes Pt had busy morning with V/Q scand and barium swallow, pt requested to wait for PT until afternoon. PT Discharge Recommendations Home with Assistance
--- NOTE | 2019-03-25 11:50 | DI.RAD.S_ITS ---
PROCEDURE: FL BARIUM SWALLOW W SPEECH INDICATIONS: dysphagia, post op cervical TECHNIQUE: Examination was conducted in conjunction with speech pathology per standard protocol. In the lateral projection, filming was performed of the patient swallowing. AP projection filming may also be performed with patient swallowing. COMPARISON: None. FINDINGS: Status post C4-C5 and C5-C6 ACDF. Function: The oral preparatory phase appears normal, with proper containment. The subsequent oral propulsive phase, pharyngeal phase, and esophageal phase of swallowing also appear normal with all proffered substances. There is frequent silent laryngeal penetration and tracheal aspiration with essentially all liquid and solid barium consistencies Morphology: No cricopharyngeal bar is identified. No cervical esophageal webs. No Zenker's diverticulum. No strictures. IMPRESSION: Silent tracheal aspiration. Dictated by: Yifan Yousif M.D. on 03/25/2019 at 10:32 Approved by: Yifan Yousif M.D. on 03/25/2019 at 10:41
[2019-03-25 12:20] VITALS: BP 140/74; PULSE 77; RESP 16; TEMP 36.9; O2SAT 95
[2019-03-25] MEDS: DEXAMETHASONE 10 MG/ML VIAL IV (12:46)
--- NOTE | 2019-03-25 13:30 | PT.IPTN ---
Current Diagnoses Spinal stenosis, cervical region (03/21/19) Strain of muscle, fascia and tendon at neck level, initial encounter (03/21/19) Surgery Performed Operation Date: 03/21/19 10:15 Actual Procedures p C4-5,C5-6,C6-7 Cervical Fusion Anterior/Posterior Instru. & bone graft - Dl Jules MD Physical Therapy Treatment Note M2 PT-IP Current Condition Start: 03/21/19 16:59 Freq: NEEDED Status: Active Protocol: Document 03/23/19 11:46 RCC (Rec: 03/23/19 13:27 RCC [id number]) Physical Therapy Current Condition Current Condition Evaluation Date 03/23/19 Treatment Diagnosis C4-5, C5-6, C6-7 cervical fusion A/P, impaired activity tolerance Precautions Cervical Spine Precautions Soft Collar for Comfort No Heavy Lifting Log Roll Other Precautions monitor for chest pain M3 PT-IP Subjective Start: 03/21/19 16:59 Freq: NEEDED Status: Active Protocol: Document 03/25/19 12:55 CLB (Rec: 03/25/19 13:30 CLB [id number]) Subjective Physical Therapy Visit Type Type Treatment Note Visit Start Time 12:55 Visit Stop Time 13:20 Total Visit Minutes 25 Number of ALMOND BLANCHER HAND Visits 4 Physical Therapy Visit Comments Patient Comments agreeable to ambulate with therapy. Therapy Pain Assessment Pain When Pain Assessed During Mobility Pain Present Pain Present Denied Pain M4 PT-IP Mobility and Gait Start: 03/21/19 16:59 Freq: NEEDED Status: Active Protocol: Document 03/25/19 12:55 CLB (Rec: 03/25/19 13:30 CLB [id number]) PT-Transfer Assessment Sit to and From Stand Sit to and from Stand Independent Equipment Transfer Assistive Device Gait Belt Front Wheeled Walker Transfers Transfer Destination Chair Transfer Technique Stand Step Pivot Transfer Ability Level of Assist Independent Gait Assessment Gait Gait Assistance Required: Standby Assistance Distance (Feet) 250 Assistive Devices Assistive Device Gait Belt Front Wheeled Walker Gait Deviations General Gait Pattern Decreased Stride Length Decreased Feet Clearance Flexed Trunk Factors Limiting Gait Function Factors Limiting Gait Function Decreased Activity Tolerance Decreased Strength M5 PT-IP Objective Assessments Start: 03/21/19 16:59 Freq: NEEDED Status: Active Protocol: Document 03/23/19 11:46 RCC (Rec: 03/23/19 13:27 RCC [id number]) Orientation Orientation/Cognition Level of Alertness Alert Orientation Name Age Birthday Month Date Year Day of Week Place Situation Sensation Assessment Sensation Gross Sensation WNL Comments Sensation Comments denies numbness/tingling M6 PT-IP Treatment Start: 03/21/19 16:59 Freq: NEEDED Status: Active Protocol: Document 03/24/19 13:45 CLB (Rec: 03/24/19 14:11 CLB [id number]) Physical Therapy Treatment Exercises Exercises Quad Sets M7 PT-IP Assessment and Plan Start: 03/21/19 16:59 Freq: NEEDED Status: Active Protocol: Document 03/25/19 12:55 CLB (Rec: 03/25/19 13:30 CLB [id number]) PT Summary Assessment and Plan Summary Assessment Summary Pt improving with ambulation and was able to ambulate 100ft with seated rest break then ambulated another 150ft w/o rest break. Pt is independent with transfers. Goals Bed Mobility Goal Standby Assistance Transfer Goal Standby Assistance Gait Goal Standby Assistance Four Wheel Walker Gait Distance 150 Days to Meet Goals 5 Frequency of Treatment Frequency Of Treatment Twice a Day Treatment Plan Physical Therapy Treatment Plan Bed Mobility Training Transfer Training Gait Training Balance Retraining Post Op Education Discharge Planning Neuromuscular Re-ed Recommendations To Nursing Amount of Assist Needed 1 Person Assist Discharge Recommendations PT Discharge Recommendations Home with Assistance
--- NOTE | 2019-03-25 15:09 | ST.SWALLOW ---
Care Team Visit Care Team Role Provider Type Jim Malhotra MD Primary Care Provider Physician Specialty: Internal Medicine [address]: [address] [place] [address], [id number] Email: Dl Jules MD Admit Provider Physician Attending Provider Specialty: Orthopedic Surgery Address: [address] [place] [address], [id number] Email: [email or web address] Modified Barium Swallow Study GYNECOLOGY TEACHER Modified Barium Swallow Study Start: 03/25/19 14:26 Freq: Status: Active Protocol: Document 03/25/19 14:27 TLC (Rec: 03/25/19 14:52 TLC [id number]) Modified Barium Swallow Study Total Time Visit Start Time 10:00 Visit Stop Time 10:30 Total Visit Minutes 30 Referral Reason for Referral Dysphagia s/p ACDF Setting Setting Acute Care Patient Information Identification Type Name Patient History Kaela underwent ACDF surgery on 03/21/19 and has experienced difficulty swallowing with reports of odynophagia as well as overt signs of aspiration (coughing) during PO intake. An MBSS was recommended to further assess swallow function. Subjective Observations Cooperative during evaluation Patient Positioning Position View Lateral Imaging Lateral View Textures Administered Trials Presented Thin Liquid via Spoon [place] Liquid via Spoon Honey Liquid via Spoon Pudding Thick Liquid via Spoon Regular Textures Oral Phase Source: MBSIMP (TM) (C) Bolus Specific Scoring Grid Lip Closure No Impairment (WNL) Tongue Control During Bolus Hold No Impairment (WNL) Bolus Prep/Mastication No Impairment (WNL) Bolus Transport/Lingual Motion No Impairment (WNL) Oral Residue Minimal Impairment Additional Oral Phase Observations No labial escape of bolus observed. Patient forms a cohesive bolus between tongue and palatal seal and chewing and mastication was timely and efficient. Lingual motion for bolus transport was brisk. trace oral residue observed with all textures. Pharyngeal Phase Source: MBSIMP (TM) (C) Bolus Specific Scoring Grid Delayed Initiation of Pharyngeal Swallow Yes Soft Palate Elevation No Impairment (WNL) Tongue Base Strength/Range of Motion No Impairment (WNL) Laryngeal Elevation Mild Impairment Anterior Hyoid Movement Mild Impairment Epiglottic Range of Motion Moderate Impairment Vallecular Residue Yes Laryngeal Vestibular Closure Moderate Impairment Posterior Pharyngeal Wall Residue Yes Upper Esophageal Sphincter Opening Mild Impairment Residue in the Pyriform Sinuses Yes Additional Pharyngeal Phase Observations Observed severe prevertebral soft tissue swelling per radiologist report which results in incomplete epiglottic movement with only partial inversion allowing for trace penetration and suspected trace aspiration ( though not fully visible) with all textures. Anterior hyoid excursion and laryngeal elevation were incomplete which also contributed to incomplete laryngeal vestibular closure. Trials of chin tuck, effortful swallow and breath hold were not effective in preventing penetration/aspiration. Cough was effective in ejecting material from airway. Partial distension of pharyngoesophageal segment opening was observed resulting in pharyngeal residue. Residue collected in the vallecula likely due to incomplete epiglottic inversion. Trace residue was also observed along the pharyngeal wall and in the pyriform sinus. Residue decreased with dry swallows. A/P View Clinical Impressions Dysphagia Type Pharyngeal Findings Moderate pharyngeal dysphagia leading to trace penetration/ suspected aspiration because of prevertebral swelling resulting in compromised airway protection. Recommend: thin liquids (small sips, no straws), dysphagia mechanical textures with implementation of supraglottic swallow with all bites/sips. Additional coughing, dry swallows recommended to minimize aspiration risk of pharyngeal residue. Written and verbal education was provided to the patient who verbalized understanding of general swallowing anatomy and impairments observed during test as well as recommendations and risk of aspiration. Education included importance of implementing supraglottic strategy and strict oral hygiene to minimize risk of developing aspiration pneumonia. Patient verbalized understanding and agreement with plan of care. Reviewed results with nursing who will discuss swelling with physician. Rehabilitation Potential Good Patient Appropriate for Therapy Yes Recommendations Diet Liquids Order Thin Diet Order Dysphagia Mechanical Medication Recommendation Crushed in Carrier Additional Dietary Needs No Straws Reminders to Use Strategies Aspiration Precautions Recommended Precautions Upright at 90 Degrees Small Bites/Sips Liquids from Cup Treatment Plan Therapy Recommendations Inpatient Speech Therapy Compensatory Strategy Education Compensatory Strategies Recommendations Supraglottic Swallow Short Term Goals Given written cues, Kaela will demonstrate adequate use of supraglottic swallow technique to eliminate s/s of laryngeal penetration and/or aspiration and increase airway protection during meals.
--- NOTE | 2019-03-25 15:16 | P.PN_ITS ---
Subjective Date Patient Seen: 03/25/19 Interval history: Patient is a 79-year-old female status post cervical diske ctomy and fusion with cages who we were asked to evaluate for postoperative chest pain. Patient reports after her V/Q scan she had some shoulder discomfort this morning. She is unsure whether that was similar to her prior pain. She did receive a Vicodin with some relief. She has had no further chest discomfort since that time. She is somewhat anxious to be discharged home. Exam Vital Signs (past 8 hours): - 03/25/19 07:50 03/25/19 12:20 Temperature 98.2 F 98.4 F Pulse Rate 77 77 Respiratory Rate 16 16 Blood Pressure 125/69 140/74 Pulse Oximetry 96 95 Fraction of Inspired Oxygen 21 Oxygen Delivery Method Room Air Oxygen Flow Rate 0 Narrative Exam Narrative: Pleasant female resting comfortably in no obvious distress Lungs: Clear to auscultation Cardiac exam: Regular rate rhythm normal S1-S2 with a 2/6 systolic ejection mu rmur Neck: Bandage is in place with minimal exudate Abdomen: Soft and nontender Extremities: No edema Objective Labs Result Diagrams: 03/25/19 04:59 03/25/19 04:59 Labs: Laboratory Results - last 24 hr 03/25/19 03/25/19 03/25/19 04:59 04:59 04:59 WBC 9.3 RBC 4.27 Hgb 12.5 Hct 37.9 MCV 88.7 MCH 29.3 MCHC 33.0 RDW 16.1 H Plt Count 163 Neut % (Auto) 75.7 H Lymph % (Auto) 14.7 L Atlantic % (Auto) 7.0 Eos % (Auto) 2.0 Baso % (Auto) 0.6 Neut # (Auto) 7000 Lymph # (Auto) 1400 Atlantic # (Auto) 600 Eos # (Auto) 200 Baso # (Auto) 100 Sodium 138 Potassium 4.2 Chloride 98 Carbon Dioxide 33 H BUN 19 H Creatinine 0.80 Estimated GFR > 60.0 BUN/Creatinine Ratio 23.8 H Glucose 126 H Hemoglobin A1c 6.1 H Calcium 9.5 Magnesium 1.5 L Total Bilirubin 0.9 AST 32 ALT 22 Alkaline Phosphatase 114 Total Protein 6.7 Albumin 3.6 Globulin 3.1 Albumin/Globulin Ratio 1.2 Assessment & Plan Assessment & Plan narrative: ostoperative chest pain, not present on admission. Resolved. -Patient had postoperative cheat pain and pressure radiating to shoulders with associated nausea, diaphoresis, and shortness of breath. Cardiac risk factors include: Hypertension, hyperlipidemia, diabetes mellitus type 2, SUKHWINDER, morbid obesity, and gout. -Serial troponin x 2 < 0.012. -EKG's did not demonstrate any acute ischemic changes. -D-dimer elevated at 682. -Patient received nitro SL and morphine with improvement. Continue to treat chest pain as needed will oxygen, nitroglycerin, morphine, and EKG. -Discussed case with cardiology who recommends that even though there is low probability of PE the patient is at higher cadiac risk, therefore, rule out PE with V/Q scan and if intermediate probability purse premedicated (iodine allergy) CTA and treat PE if present. If V/Q low probability then pursue NM stress test while inpatient and possible cardiac cath if abnormal. -NPO at midnight for V/Q scan tomorrow (shortage of isotope today and not obtained). V/Q scan results: Low probability V/Q scan as above. However, the ventilatory images are markedly suboptimal, decreasing study sensitivity. If there is persistent high clinical concern, recommend further risk stratification with bilateral lower extremity ultrasound for DVT. Is my clinical index of suspicion for pulmonary embolus is very low will proceed with stress testing as outlined by Cardiology. Will arrange for stress test tomorrow. 2. Acute hyponatremia, likely present on admission. Resolved. -Continue to monitor sodium periodically. Continue IV fluids until adequately hydrated. Encouraged PO intake of fluids. 3. Hypertension, chronic, present on admission. Stable. -Currently not medically treated. COntinue to monitor BP closely and treat as indicated. 4. Hyperlipidemia, chronic, present on admission. Stable. -Continue simavastatin 20 mg daily at bedtime. 5. Diabetes mellitus type 2, insulin using, present on admission. Stable. -Unclear baseline glycemic control. Ordered hemoglobin A1c, pending. -Held metformin and may be restarted time of discharge. -Continue [facility] blood glucose checks and high-dose correction scale insulin. 6. Morbid obesity, chronic, present on admission. Stable. -BMI 42. -Counseled patient on lifestyle modification including diet and exercise. 7. Cervical osteoarthritis, status post cervical diskectomy and fusion, present on admission. Active. -Continue pain and postoperative management for Ortho. Follow up with Dr. Morning as advised. Quality VTE Deep Vein Thrombosis/Pulmonary Embolism Present on Admission: No
--- NOTE | 2019-03-25 15:24 | OT.IP.TRT ---
Current Diagnoses Spinal stenosis, cervical region (03/21/19) Strain of muscle, fascia and tendon at neck level, initial encounter (03/21/19) Surgery Performed Operation Date: 03/21/19 10:15 Actual Procedures p C4-5,C5-6,C6-7 Cervical Fusion Anterior/Posterior Instru. & bone graft - Dl Jules MD Occupational Therapy Treatment Note M2 OT-IP Current Condition Start: 03/22/19 13:22 Freq: Status: Active Protocol: Document 03/24/19 10:15 [facility] (Rec: 03/24/19 14:35 [facility] [id number]) Occupational Therapy Current Condition Current Condition Evaluation Date 03/24/19 Treatment Diagnosis C4-C7 ACDF Diagnosis Onset Date 03/21/19 Post Operative Precautions Cervical Spine Precautions Soft Collar for Comfort No Heavy Lifting Log Roll M3 OT- IP Subjective and Pain Start: 03/22/19 13:22 Freq: Status: Active Protocol: Document 03/25/19 15:09 [facility] (Rec: 03/25/19 15:24 [facility] [id number]) OT- Subjective Occupational Therapy Visit Type Type Treatment Note Visit Start Time 14:15 Visit Stop Time 14:53 Total Visit Minutes 38 Occupational Therapy Visit Comments Patient Comments Pt wanting to shower. OT Pain Assessment Pain When Pain Assessed At Rest Pain Present Pain Present Denied Pain M4 OT- IP ADL's Start: 03/22/19 13:22 Freq: Status: Active Protocol: Document 03/25/19 15:09 [facility] (Rec: 03/25/19 15:24 [facility] [id number]) OT [id number] Comments OT Self-Feeding Comments Pt able to recall all SUPERVISORY EXAMINER strategies for eating. OT ADL-Dressing General Eval Upper Body Dressing Ability Independent Lower Body Dressing Ability Independent Comments OT Dressing Comments Pt able to do all dressing needs with increased time and safety and know to sit to do LB dressing needs. OT ADL-Toileting General Evaluation Toileting Ability Independent OT ADL-Bathing Bathing Type Bathing Type Shower General Evaluation Bathing Ability Moderate Assistance Areas Needing Assistance Wash/Dry Upper Body Comments OT Bathing Comments Assist to wash and dry her back and hair. Pt states will have assist at home. Prior to the shower pt's nurse able to change out the dressing on her neck. M5 OT- IP IADL's Start: 03/22/19 13:22 Freq: Status: Active Protocol: Document 03/24/19 10:15 [facility] (Rec: 03/24/19 14:35 [facility] [email or web address]) OT-Instrumental Activities of Daily Living Medication Management Medication Management No Deficits Identified Money Management Money Management No Deficits Identified Meal Preparation Meal Preparation Caregiver Provides Assist Telephoner Telephoner Caregiver Provides Assist M6 OT- IP Functional Cognition Start: 03/22/19 13:22 Freq: Status: Active Protocol: Document 03/25/19 15:09 [facility] (Rec: 03/25/19 15:24 [facility] [email or web address]) Cognitive Factors Limiting Selfcare Function Cognitive Ability Level of Alertness Alert Patient Orientation Name Age Birthday Month Date Year Day of Week Place Situation Attention Span Ability Capable of Focused Attention Capable of Sustained Attention Ability to Follow Commands Able to Follow Multi-Step Commands Memory Description Short Term Impaired Safety Awareness Underestimates Need for Assistance Cognitive Tests SLUMS Pt scored 25/30 normal is 27/ 30 and able to name 14 animal names, forgeting two objects for short term memory and one answer from after listenng to a story. Cognitive Comments Cognitive Assessment Comments Pt tends to be impulsive and needs vc to slow down. Pt did not wait for therapist to come back and went ahead to get into the shower and able to witness her stumbling over the threshold as pt was getting into the shower, Pt states, Oh I did not want you to see that. M7 OT- IP Mobility and Balance Start: 03/22/19 13:22 Freq: Status: Active Protocol: Document 03/25/19 15:09 [facility] (Rec: 03/25/19 15:24 [facility] [email or web address]) OT-Transfer Assessment Sit to and From Stand Sit to and from Stand Independent Transfers Transfer Ability Independent Standby Assistance Technique Transfer Destination Bed Chair Shower Stall Toilet Comments Mobility Comments Independent for level surfaces, SBA for uneven surfaces. Pt mainly needs vc to slow down. M8 OT- IP Objective Assessments Start: 03/22/19 13:22 Freq: Status: Active Protocol: Document 03/24/19 10:15 [facility] (Rec: 03/24/19 14:35 [facility] [email or web address]) OT Gross Range of Motion Upper Extremity Range of Motion Assessment Bilaterally Impaired OT Strength Comments Strength Comments NOt able to formally assess, WFL for bed mobility needs. M9 OT- IP Assessment and Plan Start: 03/22/19 13:22 Freq: Status: Active Protocol: Document 03/25/19 15:09 [facility] (Rec: 03/25/19 15:24 [facility] [email or web address]) OT Summary Assessment and Plan Potential Rehabilitation Potential Good Analytic Complexity at Evaluation Low Summary Assessment Summary Pt has met OT goals except pt states at home will have assist for showering and needing assist today due to trying to keep the dressing dry as needing assist to wash and dry her hair. Therefore discharge pt from OT services and SUPERVISORY EXAMINER to continue to follow pt for swallowing needs and PT for mobility needs. Frequency of Treatment Frequency Of Treatment Discharge Discharge Recommendations OT Discharge Recommendations Home with Assistance
[2019-03-25 16:00] VITALS: BP 154/83; PULSE 70; RESP 18; TEMP 36.7; O2SAT 96
[2019-03-25] MEDS: MAGNESIUM OXIDE 400 MG TABLET PO ×2 (18:13→21:45)
[2019-03-25] MEDS: DEXAMETHASONE 4 MG/ML VIAL IV (19:28)
--- NOTE | 2019-03-25 20:27 | PC.NURSE ---
Shift note: Kaela awake, Ox3 & situation tonight. Denies any pain, reports I am pretty comfortable. VS stable, BP slightly hypertensive. Tele sinus rhythm. Denies chest pain or SOB. IV to R wrist is leaking & site . IV removed. Patient with several bruised areas to bilateral UE's from prior IV's/lab draws. RN unsuccessful x 2 to start IV. I notified charge gang weigher Laisha of need for IV start, she notified Ginna in DI who then came up and started PIV in LFA. Site flushes slow, this nurse needing to pull back on canula to get IV to flush, appears end of canula may be up against valve. Pt reported some stinging with NS flush but not with medication push. Refused warm blanket around IV site, reports stinging resolved quickly after flush. Site protected with mesh stockinette. Per Nuc Med tech, patient to be NPO after breakfast tomorrow 03/26 for stress test between noon & 1. She is to have no caffeine products, decaf or chocolate from now until exam, diet order was edited to reflect this.
[2019-03-25 20:49] VITALS: BP 145/70; PULSE 72; RESP 18; TEMP 36.5; O2SAT 95
[2019-03-25] MEDS: ALLOPURINOL 300 MG TABLET PO (21:44)
[2019-03-25] MEDS: GABAPENTIN 600 MG TABLET 1200 MG PO (21:44)
[2019-03-25] MEDS: SENNOSIDES 8.6 MG TABLET 17.2 MG PO (21:44)
[2019-03-25] MEDS: cephALEXin 250 MG CAPSULE 500 MG PO (21:45)
[2019-03-25] MEDS: SIMVASTATIN 20 MG TABLET PO (21:45)
[2019-03-25] MEDS: INSULIN GLARGINE 100 UNIT/ML 3ML PEN 24 UNIT SUBCUT (21:45)
[2019-03-26] MEDS: DEXAMETHASONE 4 MG/ML VIAL IV ×4 (00:06→21:12)
[2019-03-26 02:15] VITALS: BP 137/75; PULSE 65; RESP 16; TEMP 36.9; O2SAT 95
[2019-03-26 05:29] LABS: BUN Creatinine Ratio 28.8 (6-22); Blood Urea Nitrogen 23 mg/dL (7-17); Calcium 9.9 mg/dL (8.4-10.2); Carbon Dioxide 32 mmol/L (22-32); Chloride 97 mmol/L (98-107); Estimated Glomerular Filt Rate > 60.0 mL/min (>60); Glucose 282 mg/dL (80-110); HEMOLYSIS < 15 (0-50); Magnesium 1.7 mg/dL (1.6-2.3); Potassium 4.7 mmol/L (3.4-5.1); Sodium 138 mmol/L (137-145)
[2019-03-26] MEDS: SODIUM CHLORIDE 0.9% FLUSH 10 ML IV ×4 (05:53→21:15)
[2019-03-26 07:54] VITALS: BP 137/80; PULSE 65; RESP 18; TEMP 36.2; O2SAT 96
--- NOTE | 2019-03-26 08:19 | PM.PNPO.1 ---
Subjective Date Patient Seen: 03/26/19 Time Patient Seen: 08:19 Interval history: Feeling much better. Has not had any chest pain in 24 hours. Exam Vital Signs (past 8 hours): - 03/26/19 02:15 03/26/19 07:54 Temperature 98.4 F 97.2 F L Pulse Rate 65 65 Respiratory Rate 16 18 Blood Pressure 137/75 137/80 Pulse Oximetry 95 96 Fraction of Inspired Oxygen 21 Oxygen Delivery Method Room Air Oxygen Flow Rate 0 Const Orientation: alert and oriented x3 Back/Spine/Pelvis Other: CDI. 5/5 motor both upper extremities. Objective Imaging VQ scan: Radiologist's impression: Low probability of PE Labs Result Diagrams: 03/25/19 04:59 03/26/19 05:06 Labs: Laboratory Results - last 24 hr 03/26/19 05:06 Sodium 138 Potassium 4.7 Chloride 97 L Carbon Dioxide 32 BUN 23 H Creatinine 0.80 Estimated GFR > 60.0 BUN/Creatinine Ratio 28.8 H Glucose 282 H D Calcium 9.9 Magnesium 1.7 Assessment & Plan Post-op Postoperative Procedures Operation Date: 03/21/19 10:15 Actual Procedures Side Surgeon p C4-5,C5-6,C6-7 Cervical Fusion Anterior/Posterior Instru. & bone graft Dl Jules MD she is doing much better. Continue with plan for stress test today. If this is good, she could be discharged home. Quality VTE Deep Vein Thrombosis/Pulmonary Embolism Present on Admission: No
[2019-03-26] MEDS: INSULIN ASPART 100 UNIT/ML INSULN PEN SUBCUT ×3 (08:47→21:21)
[2019-03-26] MEDS: DOCUSATE 100 MG CAPSULE PO ×2 (08:50→21:14)
[2019-03-26] MEDS: ASPIRIN EC 81 MG TABLET PO (08:50)
[2019-03-26] MEDS: MAGNESIUM OXIDE 400 MG TABLET PO ×2 (08:50→21:15)
--- NOTE | 2019-03-26 10:43 | PT.IPTN ---
Current Diagnoses Spinal stenosis, cervical region (03/21/19) Strain of muscle, fascia and tendon at neck level, initial encounter (03/21/19) Surgery Performed Operation Date: 03/21/19 10:15 Actual Procedures p C4-5,C5-6,C6-7 Cervical Fusion Anterior/Posterior Instru. & bone graft - Dl Jules MD Physical Therapy Treatment Note M2 PT-IP Current Condition Start: 03/21/19 16:59 Freq: NEEDED Status: Active Protocol: Document 03/23/19 11:46 [facility] (Rec: 03/23/19 13:27 [facility] [id number]) Physical Therapy Current Condition Current Condition Evaluation Date 03/23/19 Treatment Diagnosis C4-5, C5-6, C6-7 cervical fusion A/P, impaired activity tolerance Precautions Cervical Spine Precautions Soft Collar for Comfort No Heavy Lifting Log Roll Other Precautions monitor for chest pain M3 PT-IP Subjective Start: 03/21/19 16:59 Freq: NEEDED Status: Active Protocol: Document 03/26/19 10:15 (Rec: 03/26/19 10:43 [email or web address]) Subjective Physical Therapy Visit Type Type Treatment Note Visit Start Time 10:15 Visit Stop Time 10:35 Total Visit Minutes 20 Notes Pt will have stress test shortly Physical Therapy Visit Comments Patient Comments agreeable to ambulate with therapy. Therapy Pain Assessment Pain When Pain Assessed During Mobility Pain Present Pain Present Denied Pain M4 PT-IP Mobility and Gait Start: 03/21/19 16:59 Freq: NEEDED Status: Active Protocol: Document 03/26/19 10:15 (Rec: 03/26/19 10:43 [email or web address]) PT-Bed Mobility Assessment Scooting Scooting to Edge of Bed Independent PT-Transfer Assessment Sit to and From Stand Sit to and from Stand Independent Equipment Transfer Assistive Device None Orthotic/Prosthetic Devices or Brace: Yes Transfers Transfer Destination Chair Transfer Technique Stand Step Pivot Transfer Ability Level of Assist Independent Comments Mobility Comments Pt was able to have full ROM of UEs and albina her soft collar and jacket independently. Gait Assessment Gait Gait Assistance Required: Standby Assistance Distance (Feet) 200 Assistive Devices Assistive Device None Gait Deviations General Gait Pattern Ataxic Decreased Stride Length Decreased Feet Clearance Flexed Trunk Factors Limiting Gait Function Factors Limiting Gait Function Decreased Activity Tolerance Decreased Strength Comments Gait Comments trial of transfers without FWW but will soft collar. Pt amb 200 ft without AD but presents ataxic gait with uneven step length. Pt stated thats her baseline gait. Stair Climbing Assessment Comments Stair Climbing Comments will attempt this afternoon M5 PT-IP Objective Assessments Start: 03/21/19 16:59 Freq: NEEDED Status: Active Protocol: Document 03/23/19 11:46 [facility] (Rec: 03/23/19 13:27 [facility] [id number]) Orientation Orientation/Cognition Level of Alertness Alert Orientation Name Age Birthday Month Date Year Day of Week Place Situation Sensation Assessment Sensation Gross Sensation WNL Comments Sensation Comments denies numbness/tingling M6 PT-IP Treatment Start: 03/21/19 16:59 Freq: NEEDED Status: Active Protocol: Document 03/24/19 13:45 [facility] (Rec: 03/24/19 14:11 [facility] [id number]) Physical Therapy Treatment Exercises Exercises Quad Sets M7 PT-IP Assessment and Plan Start: 03/21/19 16:59 Freq: NEEDED Status: Active Protocol: Document 03/26/19 10:15 [facility] (Rec: 03/26/19 10:43 [facility] [email or web address]) PT Summary Assessment and Plan Summary Assessment Summary Trial of gait training without AD this am. Pt presents ataxic gait with uneven step length who claimed this is her baseline gait. She also reports of fatigue after gait training and will attempt stair training in this pm. Goals Bed Mobility Goal Standby Assistance Transfer Goal Standby Assistance Gait Goal Standby Assistance Gait Distance 150 Other Goals climb 3 steps without rails SBA Days to Meet Goals 5 Frequency of Treatment Frequency Of Treatment Twice a Day Treatment Plan Physical Therapy Treatment Plan Bed Mobility Training Transfer Training Gait Training Balance Retraining Post Op Education Discharge Planning Neuromuscular Re-ed Recommendations To Nursing Amount of Assist Needed 1 Person Assist Discharge Recommendations PT Discharge Recommendations Home with Assistance
[2019-03-26 11:45] VITALS: BP 137/71; PULSE 70; RESP 18; TEMP 36.7; O2SAT 95
--- NOTE | 2019-03-26 11:54 | PC.NURSE ---
Day Shift- Pt denies carla pain/pressure. Or incisional pain. Soft collar in place. Pt OOB to chair this AM with SBA, sitting up in chair most of shift. Ant/post neck incisions covered with CDI gauze and tegaderm. Pt left unit at 1150 via wheelchair, taken by transporter for NM stress test. Pt back at 1222 via wheelchair with transporter.
--- NOTE | 2019-03-26 12:14 | P.PCN_ITS ---
Cardiac Stress Test Report Referral & Results Date Patient Seen: 03/26/19 Time Patient Seen: 12:00 Requesting provider: Evelyn Cruz Indication: Chest discomfort Rest ECG: NSR Procedure Note: After both written and verbal informed consent the patient had an IV started by the diagnostic imaging RN and then was hooked up to the treadmill monitoring system. The patient was placed on the treadmill at 1 mile an hour with no elevation and was then injected with the Rebeka scan material. The Cardiolite was then immediately administered. The patient spent an additional 2-3 minutes on the treadmill before being returned to the [facility] in the supine position. The patient had a normal response to all infused materials. Complained of mild angina after the protocol was complete. Impression: Successful Rebeka protocol. Will await perfusion imaging Please note: Actual ECG tracings can be found in the PACS system.
--- NOTE | 2019-03-26 12:16 | ST.IPDYTX ---
Care Team Visit Care Team Role Provider Type Jim Malhotra MD Primary Care Provider Physician Specialty: Internal Medicine Address: [address] [place] [address], [id number] Email: Dl Jules MD Admit Provider Physician Attending Provider Specialty: Orthopedic Surgery Address: [address] [place] [address], [id number] Email: [email or web address] Dysphagia Treatment [employer] Dysphagia Treatment Start: 03/24/19 09:43 Freq: Status: Active Protocol: Document 03/26/19 12:05 [facility] (Rec: 03/26/19 12:16 [email or web address] [email or web address]) Dysphagia Treatment Session Time Visit Start Time 08:49 Visit Stop Time 09:28 Total Visit Minutes 49 Setting Assessment Location Acute Care Visit Type Note Type Initial Evaluation Next Note Type Next Note Type Treatment Note Patient Information Identification Type Name ID Card Subjective Observations The pt was awake and sitting up in chair eating breakfast. She declined omelet and was consuming pills whole with Cream of Wheat upon CIGAR MA[employer]ER's entrance. The pt and Nsg reported the pt had difficulty swallowing an aspirin, most likely d/t dislike of taste as it began to dissolve on her tongue. The pt was benefiting from swallowing pills whole in a carrier. Pt will be NPO following breakfast for stress test procedure. Treatment Solids Trialed Puree Administration Type Tea Spoon Self-Feeding Oral Strategies Upright at 90 degrees Pharyngeal Strategies Sitting Upright (90 deg) Effortful Swallow Supersupraglottic Swallow Small Bites and Sips Treatment Activities Continued pt education of swallow function and MBSS results, provided verbally and with animated video demonstration. Continued training of super-supraglottic swallow strategy, which the pt was able to perform after questions had been answered. She exhibited mild wet vocal quality periodically throughout the session, with and without oral intake. She informed she sometimes observed herself drooling when reading and coughing on her saliva. Education provided RE changes in swallow and sensation with age and recommended increased mindfulness of saliva, including volitionally swallowing more frequently and monitoring saliva at lips particularly when head in turned down while reading, for example. She verbalized understanding. The pt tolerated pureed texture and 1 pill taken whole with pureed cereal without overt s/sx of aspiration with use of super-supraglottic swallow. Assessment Patient Response to Treatment Good Rehab Potential Good Assessment of Improvement Pt continues with moderate pharyngeal dysphagia s/p ACDF surgery. Anticipate this will improve as pharyngeal swelling decreases. The pt benefits from super-supraglottic swallow maneuver to safely tolerate liquids in particular . She continues to choose soft , mostly pureed, textures to avoid discomfort and/or pain in the throat with swallow. She demonstrates understanding of and ability to perform safe swallow strategies. Diet Recommendations Recommendations Continue Current Diet Liquids Order Thin Diet Order Dysphagia Mechanical Medication Recommendations Whole in Carrier Additional Dietary Needs No Straws Reminders to Use Strategies Aspiration Precautions Recommended Precautions Upright at 90 Degrees Small Bites/Sips Liquids from Cup Treatment Plan Placement Recommendation after Discharge Home Home with Home Health Outpatient Therapy Appropriate for Continued Therapy Yes Therapy Recommendations Ongoing assessment, education, and training of compensatory swallow strategies to protect airway over course of healing. Dysphagia Goals Pt will use compensatory swallow strategies independently to reduce risk of aspiration and increase comfort with swallow. Pt will safely tolerate least restrictive diet to meet her nutrition and hydration needs. Follow Up Plan Over course of hospital stay; Outpatient or Home Health post hosp dc
[2019-03-26] MEDS: ACETAMINOPHEN 325 MG TABLET 650 MG PO (13:50)
[2019-03-26 15:57] VITALS: BP 148/85; PULSE 79; RESP 17; TEMP 36.7; O2SAT 96
--- NOTE | 2019-03-26 17:06 | P.PN_ITS ---
Subjective Date Patient Seen: 03/26/19 Interval history: Kaela Pedraza is a 79-year-old female with a past medical history significant for hypertension, hyperlipidemia, and diabetes mellitus type 2, insulin using, who is status post a C2-C7 cervical diskectomy and fusion with cages in which the Medicine team was consulted for postoperative chest pain and pressure. The patient is resting in bedside chair comfortably. She has had no chest pain for 24 hours. She went to undergo nuclear medicine stress test and was given radioisotope but her IV infiltrated. Midline has been placed but no isotope was available to undergo NM pharmacological stress test today and plan is for tomorrow morning. NPO at midnight. She continues to endorse laryngitis which is mild and improving. The patient reports she is doing well and denies headache, shortness of breath, chest pain, abdominal pain, nausea, vomiting, fever, chills, dysuria, or diarrhea. She is voiding without difficulty. She has had no documented BM and a bowel regimen has been implemented. She is up ambulating with assistance. Exam Vital Signs (past 8 hours): - 03/26/19 11:45 03/26/19 15:57 Temperature 98.1 F 98.1 F Pulse Rate 70 79 Respiratory Rate 18 17 Blood Pressure 137/71 148/85 H Pulse Oximetry 95 96 Fraction of Inspired Oxygen 21 Oxygen Delivery Method Room Air Oxygen Flow Rate 0 Narrative Exam Narrative: General: Elderly female sitting in bedside chair and in no acute distress, well-developed, well-nourished, appropriately interactive. HEENT: Normocephalic, atraumatic. External ears without defect. Pupils equal, round, and reactive to light. Anicteric sclerae, moist conjunctivae, and no lid lag. Mild laryngitis. Neck: Supple with full range of motion. No lymphadenopathy or thyromegaly. Neck dressing in place C/D/I. Cardiovascular: Regular rate and rhythm without murmurs, rubs, or gallops appreciated Pulmonary: Clear to auscultation bilaterally without crackles, wheezes, or rhonchi. Normal respiratory effort with no use of accessory muscles. Not on oxygen. Abdomen: Soft, bowel sounds present, nontender, nondistended. No hepatosplenomegaly or masses appreciated. Extremities: No clubbing, cyanosis, or edema. Skin: Normal temperature, turgor, and texture; no rash, ulcers, or subcutaneous nodules appreciated. Neurological: Cranial nerves grossly intact. Psychiatric: Normal mood and affect. Alert and oriented to person, place, and time. Objective Labs Result Diagrams: 03/25/19 04:59 03/26/19 05:06 Labs: Laboratory Results - last 24 hr 03/26/19 05:06 Sodium 138 Potassium 4.7 Chloride 97 L Carbon Dioxide 32 BUN 23 H Creatinine 0.80 Estimated GFR > 60.0 BUN/Creatinine Ratio 28.8 H Glucose 282 H D Calcium 9.9 Magnesium 1.7 Assessment & Plan Assessment & Plan narrative: Kaela Pedraza is a 79-year-old female with a past medical history significant for hypertension, hyperlipidemia, and diabetes mellitus type 2, insulin using, who is status post a C2-C7 cervical diskectomy and fusion with cages in which the Medicine team was consulted for postoperative chest pain and pressure. 1. Postoperative chest pain, not present on admission. Resolved. -Patient had postoperative cheat pain and pressure radiating to shoulders with associated nausea, diaphoresis, and shortness of breath. Cardiac risk factors include: Hypertension, hyperlipidemia, diabetes mellitus type 2, SUKHWINDER, morbid obesity, and gout. -Serial troponin x 2 < 0.012. -EKG's did not demonstrate any acute ischemic changes. -D-dimer elevated at 682. -Magnesium mildly low at 1.5 and repleted. Continue to keep electrolytes repleted with K+> 4.0 and Mg+> 2.0. -Patient received nitro SL and morphine with improvement. Continue to treat chest pain as needed will oxygen, nitroglycerin, morphine, and EKG. -Discussed case with cardiology who recommends that even though there is low probability of PE the patient is at higher cardiac risk, therefore, ruled out PE with low probability V/Q scan. Will now pursue NM stress test which is pending (not performed today as IV infiltrated when receiving radioisotope, therefore, will be performed tomorrow). Clinical index of suspicion for pulmonary embolus is very low but if clinical concern arises would recommend further risk stratification with bilateral lower extremity ultrasound for DVT and possible CTA. Started DVT prophylaxis with Lovenox. 2. Cervical osteoarthritis, status post cervical diskectomy and fusion, present on admission. Active. -Continue pain and postoperative management for Ortho. Follow up with Dr. Gardner as advised. -MBS demonstrated silent tracheal aspiration secondary to severe prevertebral soft tissue swelling from recent ACDF. Continue ST evaluation, treatment and recs. Continue dexamethasone per ortho. 3. Acute hyponatremia, likely present on admission. Resolved. -Continue to monitor sodium periodically. Continue IV fluids until adequately hydrated. Encouraged PO intake of fluids. 4. Acute hypomagnesemia, likely present on admission. Resolved. -Magnesium 1.5. Repleted with magnesium oxide 64 mEQ PO x 1. -Continue to monitor magnesium periodically. 5. Hypertension, chronic, present on admission. Stable. -Currently not medically treated. Continue to monitor BP closely and treat as indicated. 6. Hyperlipidemia, chronic, present on admission. Stable. -Continue simavastatin 20 mg daily at bedtime. 7. Diabetes mellitus type 2, insulin using, present on admission. Stable. -Hemoglobin A1c 6.1% indicative of tight glycemic control. -Held metformin and may be restarted time of discharge. -Continue ACHS blood glucose checks and high-dose correction scale insulin. -Continue Lantus increased from 24 units to 28 units daily at bedtime to cover glucocorticoid induced hyperglycemia. Patient may lower Lantus to 24 units once off the dexamethasone. 8. Morbid obesity, chronic, present on admission. Stable. -BMI 42. -Counseled patient on lifestyle modification including diet and exercise. Disposition: Patient will discharge tomorrow after stress test if normal and if abnormal will pursue rest portion of stress test and may possibly require spencer sfer for cardiac cath. Quality VTE Deep Vein Thrombosis/Pulmonary Embolism Present on Admission: No
[2019-03-26] MEDS: ENOXAPARIN 40 MG/0.4 ML SYRINGE SUBCUT (18:08)
[2019-03-26 20:12] VITALS: BP 143/75; PULSE 65; RESP 17; TEMP 37.1; O2SAT 96
[2019-03-26] MEDS: ALLOPURINOL 300 MG TABLET PO (21:14)
[2019-03-26] MEDS: GABAPENTIN 600 MG TABLET 1200 MG PO (21:14)
[2019-03-26] MEDS: cephALEXin 250 MG CAPSULE 500 MG PO (21:14)
[2019-03-26] MEDS: SENNOSIDES 8.6 MG TABLET 17.2 MG PO (21:15)
[2019-03-26] MEDS: SIMVASTATIN 20 MG TABLET PO (21:15)
[2019-03-26] MEDS: INSULIN GLARGINE 100 UNIT/ML 3ML PEN 28 UNIT SUBCUT (21:21)
--- NOTE | 2019-03-26 22:23 | PC.NURSE ---
Pt up to chair for most of shift. No c/o chest pain or any other pain, denies SOB or nausea. 96%RA, LS clear. Post and Ant cervical gauze/tegsderm drsgs changed 03/25, CDI, soft colar for comfort. CBG- 226 andn 279. tele in place with NSR x2 (79, 68). IVETTE midline Hep Loc. 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 call light in reach.
[2019-03-27] MEDS: DEXAMETHASONE 4 MG/ML VIAL IV ×4 (02:15→21:28)
[2019-03-27 02:19] VITALS: BP 153/78; PULSE 65; RESP 16; TEMP 36.4; O2SAT 95
[2019-03-27 05:40] VITALS: BP 152/73; PULSE 68; RESP 16; TEMP 36.6; O2SAT 98
[2019-03-27 08:00] VITALS: BP 149/77; PULSE 56; RESP 18; TEMP 36.4; O2SAT 96
[2019-03-27] MEDS: INSULIN ASPART 100 UNIT/ML INSULN PEN SUBCUT ×4 (09:10→21:32)
[2019-03-27] MEDS: MAGNESIUM OXIDE 400 MG TABLET PO ×2 (09:13→21:28)
[2019-03-27] MEDS: SODIUM CHLORIDE 0.9% FLUSH 10 ML IV ×3 (09:13→21:29)
[2019-03-27] MEDS: ASPIRIN EC 81 MG TABLET PO (09:13)
--- NOTE | 2019-03-27 10:07 | PM.PN.1 ---
Subjective Date Patient Seen: 03/27/19 Interval history: Kaela Pedraza is a 79-year-old female with a past medical history significant for hypertension, hyperlipidemia, and diabetes mellitus type 2, insulin using, who is status post a C2-C7 cervical diskectomy and fusion with cages in which the Medicine team was consulted for postoperative chest pain and pressure. The patient is resting in bedside chair comfortably. She has had no recurrent chest pain for 36 hours. Patient has scheduled nuclear medicine stress test today and midline in place for radioisotope. Her laryngitis is resolving with dexamethasone and now hardly noticeable. The patient is eager to go home. The patient reports she is doing well and denies headache, shortness of breath, chest pain, abdominal pain, nausea, vomiting, fever, chills, dysuria, or diarrhea. She is voiding without difficulty. She has had no documented BM and a bowel regimen has been implemented. She is up ambulating with assistance. Exam Vital Signs (past 8 hours): - 03/27/19 08:00 Temperature 97.5 F L Pulse Rate 56 L Respiratory Rate 18 Blood Pressure 149/77 H Pulse Oximetry 96 Fraction of Inspired Oxygen 21 Oxygen Delivery Method Room Air Oxygen Flow Rate 0 Narrative Exam Narrative: General: Elderly female sitting in bedside chair and in no acute distress, well-developed, well-nourished, appropriately interactive. HEENT: Normocephalic, atraumatic. External ears without defect. Pupils equal, round, and reactive to light. Anicteric sclerae, moist conjunctivae, and no lid lag. Mild laryngitis. Neck: Supple with full range of motion. No lymphadenopathy or thyromegaly. Cervical collar in place. Posterior neck dressing in place and C/D/I. Did not visualize anterior neck dressing today. Cardiovascular: Regular rate and rhythm without murmurs, rubs, or gallops appreciated Pulmonary: Clear to auscultation bilaterally without crackles, wheezes, or rhonchi. Normal respiratory effort with no use of accessory muscles. Not on oxygen. Abdomen: Soft, bowel sounds present, nontender, nondistended. No hepatosplenomegaly or masses appreciated. Extremities: No clubbing, cyanosis, or edema. Skin: Normal temperature, turgor, and texture; no rash, ulcers, or subcutaneous nodules appreciated. Neurological: Cranial nerves grossly intact. Psychiatric: Normal mood and affect. Alert and oriented to person, place, and time. Objective Labs Result Diagrams: 03/25/19 04:59 03/26/19 05:06 Assessment & Plan Assessment & Plan narrative: Kaela Pedraza is a 79-year-old female with a past medical history significant for hypertension, hyperlipidemia, and diabetes mellitus type 2, insulin using, who is status post a C2-C7 cervical diskectomy and fusion with cages in which the Medicine team was consulted for postoperative chest pain and pressure. 1. Postoperative chest pain, not present on admission. Resolved. -Patient had postoperative cheat pain and pressure radiating to shoulders with associated nausea, diaphoresis, and shortness of breath. Cardiac risk factors include: Hypertension, hyperlipidemia, diabetes mellitus type 2, SUKHWINDER, morbid obesity, and gout. -Serial troponin x 2 < 0.012. -EKG's did not demonstrate any acute ischemic changes. -D-dimer elevated at 682. -Magnesium mildly low at 1.5 and repleted. Continue to keep electrolytes repleted with K+> 4.0 and Mg+> 2.0. -Patient received nitro SL and morphine with improvement. Continue to treat chest pain as needed will oxygen, nitroglycerin, morphine, and EKG. -Discussed case with cardiology who recommends that even though there is low probability of PE the patient is at higher cardiac risk, therefore, ruled out PE with low probability V/Q scan. Will now pursue NM stress test which is pending and in process today. Clinical index of suspicion for pulmonary embolus is very low but if clinical concern arises would recommend further risk stratification with bilateral lower extremity ultrasound for DVT and possible CTA. Started DVT prophylaxis with Lovenox. 2. Cervical osteoarthritis, status post cervical diskectomy and fusion, present on admission. Active. -Continue pain and postoperative management for Ortho. Follow up with Dr. Gardner as advised. -MBS demonstrated silent tracheal aspiration secondary to severe prevertebral soft tissue swelling from recent ACDF. Continue ST evaluation, treatment and recs. Continue dexamethasone per ortho. 3. Acute hyponatremia, likely present on admission. Resolved. -Continue to monitor sodium periodically. Continue IV fluids until adequately hydrated. Encouraged PO intake of fluids. 4. Acute hypomagnesemia, likely present on admission. Resolved. -Magnesium 1.5. Repleted with magnesium oxide 64 mEQ PO x 1. -Continue to monitor magnesium periodically. 5. Hypertension, chronic, present on admission. Stable. -Currently not medically treated. Continue to monitor BP closely and treat as indicated. 6. Hyperlipidemia, chronic, present on admission. Stable. -Continue simavastatin 20 mg daily at bedtime. 7. Diabetes mellitus type 2, insulin using, present on admission. Stable. -Hemoglobin A1c 6.1% indicative of tight glycemic control. -Held metformin and may be restarted time of discharge. -Continue ACHS blood glucose checks and high-dose correction scale insulin. -Continue Lantus increased from 24 units to 28 units daily at bedtime to cover glucocorticoid induced hyperglycemia. Patient may lower Lantus to 24 units once off the dexamethasone 03/29. 8. Morbid obesity, chronic, present on admission. Stable. -BMI 42. -Counseled patient on lifestyle modification including diet and exercise. Disposition: Patient will discharge today after stress test if normal and if abnormal will pursue rest portion of stress test and may possibly require transfer for cardiac cath. Quality VTE Deep Vein Thrombosis/Pulmonary Embolism Present on Admission: No
--- NOTE | 2019-03-27 10:23 | PM.DS.1 ---
History of Present Illness Date Patient Seen: 03/27/19 Time Patient Seen: 10:23 Chief complaint: [id number] Narrative: Hospital day 7, postop day 6 following C4-5 through C6-7 ACDF with cage and posterior fusion by Dr. Jules. Patient did develop some chest pain. She has been worked up by hospitalist to rule out cardiac issues. Studies have been negative so far. She is awaiting a stress test today to clear patient for going home. No chest pain at this time. Swallowing has been improving. She states that her preoperative right arm pain has resolved since surgery. Discharge Providers Date of admission: 03/21/19 08:26 Discharge Date: 03/27/19 Primary care physician: Jim Malhotra MD Consults: 03/21/19 16:19 Consult to Occupational Therapy Evaluate & Treat Comment: Physician Instructions: Evaluate and treat Consult to Physical Therapy Evaluate & Treat Comment: Physician Instructions: Evaluate and Treat Consult to Speech Therapy Evaluate & Treat Comment: 3 level acdf Physician Instructions: Evaluate and treat Discharge provider: Dhruv Eid PA-C Summary Discharge Diagnosis: Status post C4-5 through C6-7 ACDF, cage, posterior fusion, postoperative chest pain, hypertension, hyperlipidemia, type 2 diabetes, obstructive sleep apnea, morbid obesity. Hospital Course: Patient brought to hospital on 03/21/2019 for above noted surgery. She developed postoperative chest pain. She did have risk factors for cardiac issues and was seen by hospitalist for workup. Multiple tests were done to rule out cardiac and pulmonary embolus issues. Patient remained stable postoperatively. Her preoperative right arm pain had resolved after surgery. She was discharged home on postop day 6 following stress test. Status at Discharge Cognitive/behavioral status at discharge: oriented Functional status at discharge: uses cane/walker Overall status at discharge: patient is progressing back to baseline Time Spent with Patient Less than 30 minutes Exam Vital Signs (past 8 hours): - 03/27/19 05:40 Temperature 97.9 F Pulse Rate 68 Respiratory Rate 16 Blood Pressure 152/73 H Pulse Oximetry 98 Fraction of Inspired Oxygen 21 Oxygen Delivery Method Room Air,CPAP Oxygen Flow Rate 0 Narrative Exam Narrative: Alert, oriented no acute distress sitting in chair. Neck. Dressing to left anterior and posterior neck or dry without drainage or inflammation. Arms. Hitting Coach strong and equal. Pulses and sensation and symmetrical. Good strength on elbow flexion and extension and shoulder AB duction symmetrical. Objective Labs Result Diagrams: 03/25/19 04:59 03/26/19 05:06 Discharge Plan Discharge Plan Patient Disposition: Home Discharge comment: f/u 1.5 wks Discharge Med Rec/Prescriptions Prescriptions: New docusate sodium [DOK] 100 mg Capsule 100 mg PO BID PRN (Reason: constipation) Qty: 40 RF: 0 hydrocodone-acetaminophen 5-325 mg Tablet 1 tab PO Q4HR PRN (Reason: Pain, Moderate (4-6)) Qty: 20 RF: 0 diazepam 2 mg Tablet 2 mg PO Q4HR PRN (Reason: Spasms) Qty: 12 RF: 0 Continued cephalexin [Keflex] 500 MG capsule 500 mg PO HS Qty: 0 RF: 0 aspirin 81 mg Tablet,Delayed Release (Dr/Ec) 81 mg PO DAILY RF: 0 gabapentin 600 mg tablet 2 tab PO BEDTIME RF: 0 allopurinol 300 mg tablet 300 mg PO BEDTIME RF: 0 simvastatin 20 mg tablet 20 mg PO BEDTIME RF: 0 insulin glargine [Basaglar KwikPen U-100 Insulin] 100 unit/mL (3 mL) insulin pen 24 unit SUBCUT BEDTIME RF: 0 metformin 500 mg tablet 500 mg PO DAILY 30 Days RF: 0 Follow up/Referrals: Jim Malhotra MD [Primary Care Provider] - Provider Discharge Instructions Diet: Diet as Tolerated and Carb-consistent/Diabetic Activity: 10 lbs max lift Skin/Wound/Dressing Care Report to your healthcare provider any signs of infection, such as:: chills, fever, night sweats, increased pain, unusual drainage and unusual redness Dressing: may change dressing and shower POD#5 (Wed) soft collar for comfort only Visit Report/Discharge Packet Instructions: How to Prevent Falls, DI for Postoperative Pain, DI for Anterior Cervical Discectomy and Fusion Visit Report Forms: Stroke Signs & Symptoms Discharge Data Primary Care Provider: Jim Malhotra Attending Provider: Dl Jules Admit Date/Time: 03/21/19 08:26 Quality VTE Deep Vein Thrombosis/Pulmonary Embolism Present on Admission: No
--- NOTE | 2019-03-27 10:42 | PT.IPTN ---
Current Diagnoses Spinal stenosis, cervical region (03/21/19) Strain of muscle, fascia and tendon at neck level, initial encounter (03/21/19) Surgery Performed Operation Date: 03/21/19 10:15 Actual Procedures p C4-5,C5-6,C6-7 Cervical Fusion Anterior/Posterior Instru. & bone graft - Dl Jules MD Physical Therapy Treatment Note M2 PT-IP Current Condition Start: 03/21/19 16:59 Freq: NEEDED Status: Active Protocol: Document 03/23/19 11:46 RCC (Rec: 03/23/19 13:27 RCC [id number]) Physical Therapy Current Condition Current Condition Evaluation Date 03/23/19 Treatment Diagnosis C4-5, C5-6, C6-7 cervical fusion A/P, impaired activity tolerance Precautions Cervical Spine Precautions Soft Collar for Comfort No Heavy Lifting Log Roll Other Precautions monitor for chest pain M3 PT-IP Subjective Start: 03/21/19 16:59 Freq: NEEDED Status: Active Protocol: Document 03/27/19 10:35 GGD (Rec: 03/27/19 10:42 GGD [id number]) Subjective Physical Therapy Visit Type Type Treatment Note Visit Start Time 10:05 Visit Stop Time 10:30 Total Visit Minutes 25 Number of DIRECTOR OF DISTANCE LEARNING Visits 1 Physical Therapy Visit Comments Patient Comments Pt would like to work with therapy. M4 PT-IP Mobility and Gait Start: 03/21/19 16:59 Freq: NEEDED Status: Active Protocol: Document 03/27/19 10:35 GGD (Rec: 03/27/19 10:42 GGD [id number]) PT-Transfer Assessment Sit to and From Stand Sit to and from Stand Independent Equipment Transfer Assistive Device None Gait Belt Orthotic/Prosthetic Devices or Brace: Yes Transfers Transfer Destination Chair Transfer Technique Stand Step Pivot Transfer Ability Level of Assist Independent Gait Assessment Gait Gait Assistance Required: Standby Assistance Distance (Feet) 660 Assistive Devices Assistive Device None Gait Belt Gait Deviations General Gait Pattern Ataxic Decreased Stride Length Decreased Feet Clearance Flexed Trunk Factors Limiting Gait Function Factors Limiting Gait Function Decreased Activity Tolerance Decreased Strength Comments Gait Comments ambulated 330 feet x2 with seated rest break. Mild unsteadiness with gait. Stair Climbing Assessment Evaluation Level of Assist On Stairs Standby Assistance Devices Stair Climbing Assistive Devices Left Railing Right Railing Technique/Endurance Stair Climbing Direction Ascend and Descend Stair Climbing Technique Step to Step Number of Steps Climbed 3 Stair Climbing Set # Repetitions (reps) 1 M5 PT-IP Objective Assessments Start: 03/21/19 16:59 Freq: NEEDED Status: Active Protocol: Document 03/23/19 11:46 RCC (Rec: 03/23/19 13:27 RCC [id number]) Orientation Orientation/Cognition Level of Alertness Alert Orientation Name Age Birthday Month Date Year Day of Week Place Situation Sensation Assessment Sensation Gross Sensation WNL Comments Sensation Comments denies numbness/tingling M6 PT-IP Treatment Start: 03/21/19 16:59 Freq: NEEDED Status: Active Protocol: Document 03/24/19 13:45 CLB (Rec: 03/24/19 14:11 CLB [id number]) Physical Therapy Treatment Exercises Exercises Quad Sets M7 PT-IP Assessment and Plan Start: 03/21/19 16:59 Freq: NEEDED Status: Active Protocol: Document 03/27/19 10:35 GGD (Rec: 03/27/19 10:42 GGD [id number]) PT Summary Assessment and Plan Summary Assessment Summary Pt was able to ambulate without AD, with mild unsteadiness, which she states is her base line. She had no LOB during gait. She was safe and stable with stair mobility . Pt safe for home D/C when medically stable. Frequency of Treatment Frequency Of Treatment Twice a Day Treatment Plan Physical Therapy Treatment Plan Bed Mobility Training Transfer Training Gait Training Balance Retraining Post Op Education Discharge Planning Neuromuscular Re-ed Recommendations To Nursing Amount of Assist Needed 1 Person Assist Discharge Recommendations PT Discharge Recommendations Home with Assistance
--- NOTE | 2019-03-27 10:54 | CM.DPNOTE ---
Addendum entered by KENN Rivera 03/28/19 09:05: 6.: [place] that pt stayed the night last night because she did not pass stress test, according to nursing notes. Will follow closely, possible transfer (?) per Dr Soria's discussion in rounds yesterday morning. JW Original Note: DC Note: Pt now w/ current DC order home, after passing her stress test this morning. Pt is ambulating w/o assisted device and has been cleared for return home w/family assist by therapy team. Pt discussed in multidisciplinary rounds, no barriers to safe DC home today after stress test. 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 KENN Rivera
--- NOTE | 2019-03-27 11:00 | ST.IPDYTX ---
Care Team Visit Care Team Role Provider Type Jim Malhotra MD Primary Care Provider Physician Specialty: Internal Medicine Address: [address] [place] [address], [id number] Email: Dl Jules MD Admit Provider Physician Attending Provider Specialty: Orthopedic Surgery Address: [address] [place] [address], [id number] Email: [email or web address] [email or web address] APPLICATION ENGINEER Dysphagia Treatment MOBILE APPLICATION ENGINEER Dysphagia Treatment Start: 03/24/19 09:43 Freq: Status: Active Protocol: Document 03/27/19 10:54 TLC (Rec: 03/27/19 10:59 TLC [id number]) Dysphagia Treatment Session Time Visit Start Time 10:39 Visit Stop Time 10:54 Total Visit Minutes 15 Setting Assessment Location Acute Care Visit Type Note Type Treatment Note Patient Information Identification Type Name ID Card Subjective Observations Kaela was awake sitting up in chair. She is NPO for stress test at 11:30. Treatment Treatment Activities Ongoing education related to dysphagia management at home as patient will likely d/c home today if all goes well with stress test. Kaela lives at home with her son, daughter in law and grand daughter. We discussed preparing for d/c home by asking family members to stock up on soft foods such as cream of wheat, soups, ensure and mashed potatoes. Kaela was able to recall supraglottic swallow strategy. She reports her pain when swallowing has improved, but she continues to have difficulty with swallow initiation. Discussed advancing diet as tolerated at home and monitoring for s/sx of aspiration and pneumonia. Assessment Patient Response to Treatment Good Rehab Potential Good Assessment of Improvement Overall, good progress. Unable to do trials today due to NPO for stress test, but based on patient and nursing report, suspect decrease in pharyngeal swelling. Patient is cognitively WFL to recall and implement strategies. Diet Recommendations Recommendations Continue Current Diet Liquids Order Thin Diet Order Dysphagia Mechanical Medication Recommendations Whole in Carrier Additional Dietary Needs No Straws Reminders to Use Strategies Aspiration Precautions Recommended Precautions Upright at 90 Degrees Small Bites/Sips Liquids from Cup Treatment Plan Placement Recommendation after Discharge Home Home with Home Health Outpatient Therapy Appropriate for Continued Therapy Yes Dysphagia Goals Pt will use compensatory swallow strategies independently to reduce risk of aspiration and increase comfort with swallow. - excellent progress
[2019-03-27] MEDS: ACETAMINOPHEN 325 MG TABLET 650 MG PO (12:54)
--- NOTE | 2019-03-27 13:08 | PC.NURSE ---
Addendum entered by Reshma Monge R.N. 03/27/19 15:02: At 1020 WHITEWASHER called and reported that pt had a HR of 130's for a short time with PAC's, pt had been stair training with PT at that time. Original Note: Day Shift- Pt A&OX4, SBA in room, able to make needs known using elie light. Anterior and Posterior incisions covered with CDI gauze and tegaderm dressing. Soft collar in place. CMS+, roustabout strength moderate to strong. Pt denies any pain to her right arm, good ROM which was limited prior to surgery. Denies chest pain/pressure. Pain to incisions X2 10/17, very minimal. Pt left unit via wheelchair for stress test around 1145 and back to unit at 1245 C/O anterior headache, prn Tylenol given at 1255. States the headache occurred after the medication given to her yesterday for the stress test. Pt wants/eager to go home. Okay per Dhruv Davis,PAC for pt to discharge home today, discharge order rec'd in EMR. Awaiting Dr. jean input after stress test resulted. Pt aware.
--- NOTE | 2019-03-27 13:18 | PM.TREADMILL ---
Cardiac Stress Test Report Referral & Results Date Patient Seen: 03/27/19 Time Patient Seen: 12:00 Requesting provider: Evelyn Cruz Indication: Chest discomfort Rest ECG: NSR Procedure Note: After both written and verbal informed consent the patient had an IV started by the diagnostic imaging RN and then was hooked up to the treadmill monitoring system. The patient was placed on the treadmill at 1 mile an hour with no elevation and was then injected with the Rebeka scan material. The Cardiolite was then immediately administered. The patient spent an additional 2-3 minutes on the treadmill before being returned to the [facility] in the supine position. The patient had a normal response to all infused materials. BP/HR targets met. Her experience with subjectively different than yesterday. Impression: Successful Rebeka protocol. Will await perfusion imaging. Please note: Actual ECG tracings can be found in the PACS system.
[2019-03-27 15:55] VITALS: BP 150/82; PULSE 69; RESP 18; TEMP 36.4; O2SAT 97
--- NOTE | 2019-03-27 16:28 | PC.NURSE ---
Addendum entered by Crystal Alvarado R.N. 03/27/19 22:24: No chest pain or any other pain this shift, denies nausea and SOB. BM this shift! Indep in room, soft colar in place, CPAP on, call light in reach. Original Note: Pt up to chair awaiting order to DC or not. reports BM 03/24, and does not BM regularly, I go when my body tells me to go. I will probably go when I get home. family in room visiting. No needs at this time. denies any chest pain, nausea, or SOB. IVETTE midline HL. Call light in reach.
--- NOTE | 2019-03-27 17:24 | PC.NURSE ---
Call placed to Dr. Jules regarding patient's abnormal stress test and not being suitable for discharge at this time per Dr. Soria. Dr. Jules is agreeable to plan set in place for patient and is aware if he has questions to call Dr. Soria.
[2019-03-27] MEDS: ENOXAPARIN 40 MG/0.4 ML SYRINGE SUBCUT (18:09)
[2019-03-27 20:30] VITALS: BP 138/79; PULSE 60; RESP 16; TEMP 36.3; O2SAT 96
[2019-03-27] MEDS: ALLOPURINOL 300 MG TABLET PO (21:27)
[2019-03-27] MEDS: SIMVASTATIN 20 MG TABLET PO (21:28)
[2019-03-27] MEDS: GABAPENTIN 600 MG TABLET 1200 MG PO (21:28)
[2019-03-27] MEDS: cephALEXin 250 MG CAPSULE 500 MG PO (21:28)
[2019-03-27] MEDS: INSULIN GLARGINE 100 UNIT/ML 3ML PEN 28 UNIT SUBCUT (21:33)
[2019-03-28 00:58] VITALS: O2SAT 95
[2019-03-28 01:05] VITALS: BP 135/71; PULSE 58; RESP 18; TEMP 36.2; O2SAT 100
[2019-03-28] MEDS: DEXAMETHASONE 4 MG/ML VIAL IV ×3 (03:05→16:06)
[2019-03-28] MEDS: SODIUM CHLORIDE 0.9% FLUSH 10 ML IV ×2 (03:05→05:51)
[2019-03-28 04:58] VITALS: BP 143/75; PULSE 54; RESP 18; TEMP 36.3; O2SAT 97
--- NOTE | 2019-03-28 07:35 | P.PN_ITS ---
Subjective Date Patient Seen: 03/28/19 Time Patient Seen: 07:34 Interval history: She is doing very well. No chest pain for the past few days. She has been up and mobilizing well and wants to go home. Exam Vital Signs (past 8 hours): - 03/28/19 00:58 03/28/19 01:05 03/28/19 04:58 Temperature 97.1 F L 97.3 F L Pulse Rate 58 L 54 L Respiratory Rate 18 18 Blood Pressure 135/71 143/75 H Pulse Oximetry 95 100 97 Fraction of Inspired Oxygen 21 Oxygen Delivery Method Room Air,CPAP Oxygen Flow Rate 0 Const Orientation: alert and oriented x3 Back/Spine/Pelvis Other: CDI. 5/5 motor both upper extremities Objective Labs Result Diagrams: 03/25/19 04:59 03/26/19 05:06 Labs: Laboratory Results - last 24 hr 03/28/19 05:30 Magnesium 2.0 Assessment & Plan Post-op Postoperative Procedures Operation Date: 03/21/19 10:15 Actual Procedures Side Surgeon p C4-5,C5-6,C6-7 Cervical Fusion Anterior/Posterior Instru. & bone graft Dl Jules MD Stable from an orthopedic standpoint. Her stress test was inadequate yesterday and the need to repeat the resting p ortion today. If this is clear, hopefully discharge home. Quality VTE Deep Vein Thrombosis/Pulmonary Embolism Present on Admission: No
[2019-03-28 08:00] VITALS: BP 150/70; PULSE 54; RESP 18; TEMP 36.8; O2SAT 97
[2019-03-28] MEDS: ASPIRIN EC 81 MG TABLET PO ×2 (08:52→09:01)
[2019-03-28] MEDS: INSULIN ASPART 100 UNIT/ML INSULN PEN SUBCUT ×2 (08:52→12:26)
--- NOTE | 2019-03-28 09:22 | PT.IPTN ---
Current Diagnoses Spinal stenosis, cervical region (03/21/19) Strain of muscle, fascia and tendon at neck level, initial encounter (03/21/19) Surgery Performed Operation Date: 03/21/19 10:15 Actual Procedures p C4-5,C5-6,C6-7 Cervical Fusion Anterior/Posterior Instru. & bone graft - Dl Jules MD Physical Therapy Treatment Note M2 PT-IP Current Condition Start: 03/21/19 16:59 Freq: NEEDED Status: Active Protocol: Document 03/23/19 11:46 RCC (Rec: 03/23/19 13:27 RCC [id number]) Physical Therapy Current Condition Current Condition Evaluation Date 03/23/19 Treatment Diagnosis C4-5, C5-6, C6-7 cervical fusion A/P, impaired activity tolerance Precautions Cervical Spine Precautions Soft Collar for Comfort No Heavy Lifting Log Roll Other Precautions monitor for chest pain M3 PT-IP Subjective Start: 03/21/19 16:59 Freq: NEEDED Status: Active Protocol: Document 03/28/19 09:21 LJ (Rec: 03/28/19 09:22 LJ [id number]) Subjective Physical Therapy Visit Type Type Patient Unavailable Notes going for another stress test this am M4 PT-IP Mobility and Gait Start: 03/21/19 16:59 Freq: NEEDED Status: Active Protocol: Document 03/27/19 10:35 GGD (Rec: 03/27/19 10:42 GGD [id number]) PT-Transfer Assessment Sit to and From Stand Sit to and from Stand Independent Equipment Transfer Assistive Device None Gait Belt Orthotic/Prosthetic Devices or Brace: Yes Transfers Transfer Destination Chair Transfer Technique Stand Step Pivot Transfer Ability Level of Assist Independent Gait Assessment Gait Gait Assistance Required: Standby Assistance Distance (Feet) 660 Assistive Devices Assistive Device None Gait Belt Gait Deviations General Gait Pattern Ataxic Decreased Stride Length Decreased Feet Clearance Flexed Trunk Factors Limiting Gait Function Factors Limiting Gait Function Decreased Activity Tolerance Decreased Strength Comments Gait Comments ambulated 330 feet x2 with seated rest break. Mild unsteadiness with gait. Stair Climbing Assessment Evaluation Level of Assist On Stairs Standby Assistance Devices Stair Climbing Assistive Devices Left Railing Right Railing Technique/Endurance Stair Climbing Direction Ascend and Descend Stair Climbing Technique Step to Step Number of Steps Climbed 3 Stair Climbing Set # Repetitions (reps) 1 M5 PT-IP Objective Assessments Start: 03/21/19 16:59 Freq: NEEDED Status: Active Protocol: Document 03/23/19 11:46 RCC (Rec: 03/23/19 13:27 RCC [id number]) Orientation Orientation/Cognition Level of Alertness Alert Orientation Name Age Birthday Month Date Year Day of Week Place Situation Sensation Assessment Sensation Gross Sensation WNL Comments Sensation Comments denies numbness/tingling M6 PT-IP Treatment Start: 03/21/19 16:59 Freq: NEEDED Status: Active Protocol: Document 03/24/19 13:45 CLB (Rec: 03/24/19 14:11 CLB [id number]) Physical Therapy Treatment Exercises Exercises Quad Sets M7 PT-IP Assessment and Plan Start: 03/21/19 16:59 Freq: NEEDED Status: Active Protocol: Document 03/27/19 10:35 GGD (Rec: 03/27/19 10:42 GGD [id number]) PT Summary Assessment and Plan Summary Assessment Summary Pt was able to ambulate without AD, with mild unsteadiness, which she states is her base line. She had no LOB during gait. She was safe and stable with stair mobility . Pt safe for home D/C when medically stable. Frequency of Treatment Frequency Of Treatment Twice a Day Treatment Plan Physical Therapy Treatment Plan Bed Mobility Training Transfer Training Gait Training Balance Retraining Post Op Education Discharge Planning Neuromuscular Re-ed Recommendations To Nursing Amount of Assist Needed 1 Person Assist Discharge Recommendations PT Discharge Recommendations Home with Assistance
[2019-03-28] MEDS: ENOXAPARIN 40 MG/0.4 ML SYRINGE SUBCUT (10:08)
--- NOTE | 2019-03-28 14:37 | PM.DS.1 ---
History of Present Illness Date Patient Seen: 03/28/19 Time Patient Seen: 14:37 Chief complaint: [id number] Narrative: 79 year old female with neck and arm pain. She had failed conservative mangagement. Discharge Providers Date of admission: 03/21/19 08:26 Discharge Date: 03/28/19 Primary care physician: Jim Malhotra MD Consults: 03/21/19 16:19 Consult to Occupational Therapy Evaluate & Treat Comment: Physician Instructions: Evaluate and treat Consult to Physical Therapy Evaluate & Treat Comment: Physician Instructions: Evaluate and Treat Consult to Speech Therapy Evaluate & Treat Comment: 3 level acdf Physician Instructions: Evaluate and treat Discharge provider: Dl Jules MD Summary Discharge Diagnosis: Cervical stenosis with myelopathy Hospital Course: She was brought to the operating room on 03/21/2019 where she underwent C4 through 7 anterior diskectomy and anterior and posterior instrumented fusion. She had good relief of the arm symptoms both still having neck pain. On postoperative day 1 she began get heavy pain in the chest. This was relieved with some pain medication and sublingual nitroglycerin. However it returned intermittently. She did not have any EKG or enzyme changes. It was felt she was probably having intermittent angina. However, as this was progressing we checked a V/Q scan which was low probability for PE. She had an iodine contrast allergy and could not get a CT angiogram of the chest. She had an acceptable echocardiogram. We had some trouble getting a stress test but she finally had the test which had to be repeated in the resting phase the next day. This came back with a small inferior wall defect. It was felt that most likely was artifact, but it would be best to followup with Dr Frederick in cardiology as an outpatient. The patient understands this and will make the appointment when she leaves. By the date of discharge she had not had any chest pain in 48 hours and was doing well. She was ready for discharge Status at Discharge Cognitive/behavioral status at discharge: oriented Functional status at discharge: independent ambulation Overall status at discharge: patient is progressing back to baseline Exam Vital Signs (past 8 hours): - 03/28/19 08:00 Temperature 98.2 F Pulse Rate 54 L Respiratory Rate 18 Blood Pressure 150/70 H Pulse Oximetry 97 Fraction of Inspired Oxygen 21 Oxygen Delivery Method Room Air,CPAP Oxygen Flow Rate 0 Const Orientation: alert and oriented x3 Back/Spine/Pelvis Other: CDI. 5/5 motor both upper extremities. Objective Labs Result Diagrams: 03/25/19 04:59 03/26/19 05:06 Labs: Laboratory Results - last 24 hr 03/28/19 05:30 Magnesium 2.0 Discharge Plan Discharge Plan Patient Disposition: Home Discharge comment: f/u next week with Dr Jules f/u with Dr Frederick in cardiology as outpt Discharge Med Rec/Prescriptions Prescriptions: New docusate sodium [DOK] 100 mg Capsule 100 mg PO BID PRN (Reason: constipation) Qty: 40 RF: 0 hydrocodone-acetaminophen 5-325 mg Tablet 1 tab PO Q4HR PRN (Reason: Pain, Moderate (4-6)) Qty: 20 RF: 0 diazepam 2 mg Tablet 2 mg PO Q4HR PRN (Reason: Spasms) Qty: 12 RF: 0 nitroglycerin [Nitrostat] 0.4 mg Tablet, Sublingual See Rx Instructions .ROUTE .COMPLEX PRN (Reason: Chest Pain) Qty: 10 RF: 0 Continued cephalexin [Keflex] 500 MG capsule 500 mg PO HS Qty: 0 RF: 0 aspirin 81 mg Tablet,Delayed Release (Dr/Ec) 81 mg PO DAILY RF: 0 gabapentin 600 mg tablet 2 tab PO BEDTIME RF: 0 allopurinol 300 mg tablet 300 mg PO BEDTIME RF: 0 simvastatin 20 mg tablet 20 mg PO BEDTIME RF: 0 insulin glargine [Basaglar KwikPen U-100 Insulin] 100 unit/mL (3 mL) insulin pen 24 unit SUBCUT BEDTIME RF: 0 metformin 500 mg tablet 500 mg PO DAILY 30 Days RF: 0 Follow up/Referrals: Jim Malhotra MD [Primary Care Provider] - Provider Discharge Instructions Diet: Diet as Tolerated and Carb-consistent/Diabetic Activity: 10 lbs max lift Skin/Wound/Dressing Care Report to your healthcare provider any signs of infection, such as:: chills, fever, night sweats, increased pain, unusual drainage and unusual redness Dressing: may change dressing and shower prn soft collar for comfort only Visit Report/Discharge Packet Instructions: How to Prevent Falls, DI for Postoperative Pain, DI for Anterior Cervical Discectomy and Fusion Discharge Data Primary Care Provider: Jim Malhotra Attending Provider: Dl Jules Admit Date/Time: 03/21/19 08:26 Quality VTE Deep Vein Thrombosis/Pulmonary Embolism Present on Admission: No
--- NOTE | 2019-03-28 14:59 | PM.PN.1 ---
Subjective Date Patient Seen: 03/28/19 Interval history: Kaela Pedraza is a 79-year-old female with a past medical history significant for hypertension, hyperlipidemia, and diabetes mellitus type 2, insulin using, who is status post a C2-C7 cervical diskectomy and fusion with cages in which the Medicine team was consulted for postoperative chest pain and pressure. The patient is resting in bedside chair comfortably. She has had no recurrent chest pain for 48 hours. She is eager to go home. Discussed nuclear medicine stress test and perfusion defect likely community health program representative of motion artifact versus ischemic injury. Cardiology recommended outpatient follow-up for which the patient is aware and was provided a prescription for sublingual nitroglycerin. The patient has no complaints overall and denies headache, shortness of breath, chest pain, abdominal pain, nausea, vomiting, fever, chills, dysuria, or diarrhea. She is voiding and eliminating without difficulty. She is up ambulating without assistance. Exam Vital Signs (past 8 hours): - 03/28/19 08:00 Temperature 98.2 F Pulse Rate 54 L Respiratory Rate 18 Blood Pressure 150/70 H Pulse Oximetry 97 Fraction of Inspired Oxygen 21 Oxygen Delivery Method Room Air,CPAP Oxygen Flow Rate 0 Narrative Exam Narrative: General: Elderly female sitting in bedside chair and in no acute distress, well-developed, well-nourished, appropriately interactive. HEENT: Normocephalic, atraumatic. External ears without defect. Pupils equal, round, and reactive to light. Anicteric sclerae, moist conjunctivae, and no lid lag. Laryngitis resolved. Neck: Supple with full range of motion. No lymphadenopathy or thyromegaly. Anterior and posterior dressings in place and C/D/I. Cardiovascular: Regular rate and rhythm without murmurs, rubs, or gallops appreciated Pulmonary: Clear to auscultation bilaterally without crackles, wheezes, or rhonchi. Normal respiratory effort with no use of accessory muscles. Not on oxygen. Abdomen: Soft, bowel sounds present, nontender, nondistended. No hepatosplenomegaly or masses appreciated. Extremities: No clubbing, cyanosis, or edema. Skin: Normal temperature, turgor, and texture; no rash, ulcers, or subcutaneous nodules appreciated. Neurological: Cranial nerves grossly intact. Psychiatric: Normal mood and affect. Alert and oriented to person, place, and time. Objective Labs Result Diagrams: 03/25/19 04:59 03/26/19 05:06 Labs: Laboratory Results - last 24 hr 03/28/19 05:30 Magnesium 2.0 Assessment & Plan Assessment & Plan narrative: Kaela Pedraza is a 79-year-old female with a past medical history significant for hypertension, hyperlipidemia, and diabetes mellitus type 2, insulin using, who is status post a C2-C7 cervical diskectomy and fusion with cages in which the Medicine team was consulted for postoperative chest pain and pressure. 1. Postoperative chest pain, not present on admission. Resolved. -Patient had postoperative cheat pain and pressure radiating to shoulders with associated nausea, diaphoresis, and shortness of breath. Cardiac risk factors include: Hypertension, hyperlipidemia, diabetes mellitus type 2, SUKHWINDER, morbid obesity, and gout. -Serial troponin x 2 < 0.012. -EKG's did not demonstrate any acute ischemic changes. -D-dimer elevated at 682. -Magnesium mildly low at 1.5 and repleted. Continue to keep electrolytes repleted with K+> 4.0 and Mg+> 2.0. -Patient received nitro SL and morphine with improvement. Continue to treat chest pain as needed will oxygen, nitroglycerin, morphine, and EKG. -Discussed case with cardiology who recommends that even though there is low probability of PE the patient is at higher cardiac risk, therefore, ruled out PE with low probability V/Q scan. Started DVT prophylaxis with Lovenox. Nuclear medicine stress test demonstrated small perfusion defect reflective of likely diaphragmatic attenuation and artifact versus ischemic injury (low probability based on territory). Cut Off Operator Scorer, Dr. Frederick, recommended she be referred to him for cardiology establish care and follow-up and recommended sublingual nitroglycerin and possibly Imdur if chest pain is recurrent. 2. Cervical osteoarthritis, status post cervical diskectomy and fusion, present on admission. Active. -Continue pain and postoperative management for Ortho. Follow up with Dr. Gardner as advised. -MBS demonstrated silent tracheal aspiration secondary to severe prevertebral soft tissue swelling from recent ACDF. Continue ST evaluation, treatment and recs. Continue dexamethasone per ortho. 3. Acute hyponatremia, likely present on admission. Resolved. -Continue to monitor sodium periodically. Continue IV fluids until adequately hydrated. Encouraged PO intake of fluids. 4. Acute hypomagnesemia, likely present on admission. Resolved. -Magnesium 1.5. Repleted with magnesium oxide 64 mEQ PO x 1. -Continue to monitor magnesium periodically. 5. Hypertension, chronic, present on admission. Stable. -Currently not medically treated. Continue to monitor BP closely and treat as indicated. 6. Hyperlipidemia, chronic, present on admission. Stable. -Continue simavastatin 20 mg daily at bedtime. 7. Diabetes mellitus type 2, insulin using, present on admission. Stable. -Hemoglobin A1c 6.1% indicative of tight glycemic control. -Held metformin and may be restarted time of discharge. -Continue ACHS blood glucose checks and high-dose correction scale insulin. -Continue Lantus increased from 24 units to 28 units daily at bedtime to cover glucocorticoid induced hyperglycemia. Patient may lower Lantus to 24 units once off of the dexamethasone 03/29. 8. Morbid obesity, chronic, present on admission. Stable. -BMI 42. -Counseled patient on lifestyle modification including diet and exercise. Thank you for the consultation. We will sign off at this time. Quality VTE Deep Vein Thrombosis/Pulmonary Embolism Present on Admission: No
--- NOTE | 2019-03-28 15:37 | ST.IPDYTX ---
Care Team Visit Care Team Role Provider Type Jim Malhotra MD Primary Care Provider Physician Specialty: Internal Medicine Address: [address] [place] [address], [id number] Email: Dl Jules MD Admit Provider Physician Attending Provider Specialty: Orthopedic Surgery Address: [address] [place] [address], [address] Email: [email or web address] Dysphagia Treatment [employer] Dysphagia Treatment Start: 03/24/19 09:43 Freq: Status: Active Protocol: Document 03/28/19 15:32 LNK (Rec: 03/28/19 15:37 LNK [id number]) Dysphagia Treatment Session Time Visit Start Time 09:15 Visit Stop Time 01:25 Total Visit Minutes 10 Setting Assessment Location Acute Care Visit Type Note Type Treatment Note Next Note Type Next Note Type Treatment Note Patient Information Identification Type Name ID Card Subjective Observations Kaela was awake sitting up in chair. She is NPO for stress test at 11:00. Treatment Liquids Trialed Ice Chips Thin [place] Solids Trialed Puree Administration Type Tea Spoon Self-Feeding Oral Strategies Upright at 90 degrees Pharyngeal Strategies Sitting Upright (90 deg) Effortful Swallow Supersupraglottic Swallow Small Bites and Sips Treatment Activities Ongoing education related to dysphagia management at home as patient will likely d/c home today if all goes well with stress test. Kalea lives at home with her son, daughter in law and grand daughter. We discussed preparing for d/c home by asking family members to stock up on soft foods such as cream of wheat, soups, ensure and mashed potatoes. Kaela was able to recall supraglottic swallow strategy. She reports her pain when swallowing has improved, but she continues to have difficulty with swallow initiation. Discussed advancing diet as tolerated at home and monitoring for s/sx of aspiration and pneumonia. Assessment Patient Response to Treatment Good Rehab Potential Good Assessment of Improvement Overall, good progress. Unable to do trials today due to NPO for stress test, but based on patient and nursing report, suspect decrease in pharyngeal swelling. Patient is cognitively WFL to recall and implement strategies. additionally, pt described her modifications to her diet in detail, which are in agreement with the recommended diet. She has reported that some foods are sticking in her throat and she needs a liquid wash to help them get swallowed. Suggested adding alternating liquids and solids to aid in clearing solids bolus through pharynx to the esophagus. Pt agreed to try and add this technique to her strategies. Diet Recommendations Recommendations Continue Current Diet Liquids Order Thin Diet Order Dysphagia Mechanical Medication Recommendations Whole in Carrier Additional Dietary Needs No Straws Reminders to Use Strategies Aspiration Precautions Recommended Precautions Upright at 90 Degrees Small Bites/Sips Liquids from Cup Treatment Plan Placement Recommendation after Discharge Home Home with Home Health Outpatient Therapy Appropriate for Continued Therapy No Therapy Recommendations Discharge from therapy services Dysphagia Goals Pt will use safeswallow strategies independently to reduce risk of aspiration and increase comfort with swallow. - excellent progress Follow Up Plan Discharge
--- NOTE | 2019-03-28 16:37 | PC.NURSE ---
Pt discharge/off ac unit via wheelchair. All belongings with patient. Nitro Rx faxed to pharmacy per pt request. Follow up appointment made with Dr Malhotra for 04/02 at 1040. Last dose of dexamethason given and IV d/c'd. Pt denies pain.
--- NOTE | 2019-03-31 07:55 | DI.NM.S_ITS ---
DATE OF SERVICE: STUDY TYPE: Pharmaceutical 2-day treadmill nuclear stress test. INDICATION FOR STUDY: Chest pain. RADIOISOTOPES: Resting Tc-99m dose was 24.8 mCi and stress Tc-99m dose was 26.8 mCi. SYMPTOMS: No angina with Lexiscan. ECG: Resting ECG shows sinus rhythm with no ST-T changes. No ischemic changes with Lexiscan injection. PERFUSION IMAGES: There is a very small basal lateral wall reversible defect that could be a very small amount of ischemia or artifact. SSS is 1, SRS is zero. No prone images done due to recent neck surgery. GATED IMAGES: Normal left ventricular size, wall motion, and systolic function (post-stress EF 70%). TID ratio is 0.98, normal. Gkhr-cc-[id number] ratio is normal at 0.23. CONCLUSIONS: Equivocal pharmaceutical nuclear stress test consistent with either a very small amount of ischemia or artifact. No prior infarction. 1. Very small area of mildly reversible defect in the basal lateral wall consistent with prior ischemia. However, artifact cannot be ruled out as prone images were not obtained. Summed stress score (SSS) is 1, summed rest score (SRS) is zero. 2. Normal left ventricle size, wall motion, and systolic function (post-stress ejection fraction (EF) 70%). 3. No ECG evidence of ischemia. 4. No angina during the study. 5. No prior nuclear stress test available for comparison. Kaela Pedraza - VALE/priyanka/ts doc#: [id number]/job#: [id number] dd: 03/28/2019 12:58:00 dt: 03/29/2019 06:27:00 DICTATING /COPIES TO: Eugenio Frederick MD COPIES MNE: JACKLYN
== END 2019-03-28 16:20 | disposition home or self-care (01) | DRG 454 ==
PROVIDERS: Internal Medicine; Admitting Provider Orthopaedic Surgery; PCP Internal Medicine; Visit Provider Orthopaedic Surgery
PROC: 0RG20A0 Fusion of 2 or more Cervical Vertebral Joints with Interbody Fusion Device, Anterior Approach, Anterior Column, Open Approach (ICD-10-PCS; principal; 2019-03-21 10:15)
DX: M48.02 Spinal stenosis, cervical region (principal); G95.29 Other cord compression; E87.1 Hypo-osmolality and hyponatremia; Z68.41 Body mass index [BMI] 40.0-44.9, adult; E66.01 Morbid (severe) obesity due to excess calories; I10 Essential (primary) hypertension; E11.9 Type 2 diabetes mellitus without complications; Z79.4 Long term (current) use of insulin; R11.0 Nausea; R61 Generalized hyperhidrosis; E83.42 Hypomagnesemia; R07.9 Chest pain, unspecified
CPT/HCPCS: 36415; 36592; 71045; 72040; 74230; 76000; 78452; 78582; 80048; 80053; 82550; 82553; 82962; 83036; 83735; 83880; 84484; 85025; 85379; 92526; 92610; 92611; 93005; 93016; 93017; 93018; 93306; 94760; 94762; 97116; 97161; 97165; 97530; 97535; A9539; A9540; C1776; A9502; J0131; J0690; J1100; J1642; J1650; J1885; J2060; J2270; J2405; J2704; J2765; J2785; J3010; J8501

== ENCOUNTER → 2019-12-24 08:55 | Outpatient (CLI) | payer MEDICARE, OTHER, SELFPAY ==
[2019-03-21 16:36] VITALS: BMI 41.2
--- NOTE | 2019-12-24 | DI.RAD.S_ITS ---
PROCEDURE: XR CHEST 2V INDICATIONS: DYSPNEA TECHNIQUE: 2 views of the chest were acquired. COMPARISON: [facility], CR, XR CHEST 1V, 03/24/2019, 9:58. FINDINGS: Surgical changes and devices: Spinal fixation hardware. Lungs and pleura: Scattered subsegmental atelectasis and/or scarring. No focal consolidation. No pleural effusions or pneumothorax. Slight elevation of the left hemidiaphragm as before Mediastinum: Mediastinal contours are normal. Heart size is normal. Bones and chest wall: No suspicious bony abnormalities. Spondylosis and lateral curvature of the spine. Soft tissues appear unremarkable. IMPRESSION: Scattered subsegmental atelectasis and/or scarring. No focal consolidation. Dictated by: Yifan Yousif M.D. on 12/24/2019 at 10:18 Approved by: Yifan Yousif M.D. on 12/24/2019 at 10:20
== END ==
PROVIDERS: PCP Internal Medicine; Referring Provider Internal Medicine; Visit Provider Internal Medicine Cardiovascular Disease
DX: R06.09 Other forms of dyspnea (principal)
CPT/HCPCS: 71046

== ENCOUNTER → 2020-07-12 10:25 | Outpatient (CLI) | payer MEDICARE, OTHER, SELFPAY ==
[2019-03-21 16:36] VITALS: BMI 41.2
[2020-07-13 07:46] LABS: COVID19 Sendout Not Detected (Not Detect)
== END ==
PROVIDERS: PCP Internal Medicine; Visit Provider Physician Assistant
DX: Z11.59 Encounter for screening for other viral diseases (principal)
CPT/HCPCS: 87635

== ENCOUNTER → 2020-07-15 07:39 | Outpatient (CLI) | payer MEDICARE, OTHER, SELFPAY ==
[2019-03-21 16:36] VITALS: BMI 41.2
--- NOTE | 2020-07-15 18:58 | DI.NM.S_ITS ---
DATE OF SERVICE: 07/15/2020 PROCEDURE: Pharmacological perfusion study. INDICATIONS: Dyspnea with underlying hypertension. RADIOPHARMACEUTICAL: 25.8 millicurie technetium-99m Myoview IV was injected at stress and 14.5 millicurie of technetium-99m Myoview IV was injected at rest. CARDIAC STRESS: The patient underwent IV Lexiscan perfusion study under the supervision of an attending staff. She received IV Lexiscan, as per protocol. She remained hemodynamically stable. Baseline blood pressure was 160/100. Resting heart rate was about 103 beats per minute. During stress, heart rate went up to 130 beats per minute. The patient also developed atrial bigeminy. There was no obvious atrial fibrillation or sustained ventricular tachycardia. She felt dyspnea and nausea, which got resolved in recovery. RAW DATA: Breast shadow was seen. GATED STUDY: Stress LV ejection fraction 93 percent and resting LV ejection fraction 86 percent. Resting end-diastolic volume 51 mL. TID ratio 0.7, which is within normal limits. Lung/heart ratio 0.32, which is within normal limits. MYOCARDIAL PERFUSION: Stress supine and resting supine images were compared to each other. Please note that there were no prone images. Stress supine and resting supine images revealed normal myocardial perfusion. CONCLUSION: I will call this study a normal myocardial perfusion study. Baseline hypertension and mild sinus tachycardia. During stress, atrial bigeminy was seen without any obvious atrial fibrillation or sustained ventricular tachycardia. The patient had a perfusion study in March, and at that time there was a very small area of basal lateral ischemia. However, in this study, I do not see any obvious significant perfusion defect. Kaela Pedraza - Ina/mora doc#: [id number]/job#: [id number] dd: 07/15/2020 17:25:00 dt: 07/15/2020 18:42:00 DICTATING MD/COPIES TO: Nehemiah Ramirez MD COPIES MNE: CHIKI;
== END ==
PROVIDERS: PCP Internal Medicine; Referring Provider Internal Medicine Cardiovascular Disease; Visit Provider Internal Medicine Cardiovascular Disease
DX: R06.09 Other forms of dyspnea (principal); I10 Essential (primary) hypertension; R00.0 Tachycardia, unspecified
CPT/HCPCS: 78452; 93017; A9502; J2785

== ENCOUNTER → 2020-07-26 14:15 | Outpatient (CLI) | payer MEDICARE, OTHER, SELFPAY ==
[2019-03-21 16:36] VITALS: BMI 41.2
--- NOTE | 2020-07-26 | DI.ECHO.S_ITS ---
[place] +---------+ [facility] +---------+ : : [address] : : : : [id number] : : : : Phone: [phone] Echocardiogram Report + + :Name: ZAINAB DURAND Study Date: 07/26/2020 Height: 64 in : :[facility] Weight: 244 lb : : Gender: Female BSA: 2.1 m2 : :: 1940 Age: 80 yrs BP: 131/73 mmHg: :Reason For Study: AORTIC STENOSIS : :Ordering Physician: CEDRIC, : :ANY Performed By: Nereyda Robbins : :Referring: ANY FREDERICK : + + Interpretation Summary Technically difficult study do to body habitus. 1) Normal left ventricular size and systolic function (EF 60-65%). 2) There are no obvious focal wall motion abnormalities noted but poor endocardial definition reduces the sensitivity for the detection of such. 3) Grossly normal right ventricular size and function. 4) There is mild to moderate aortic stenosis (mean gradient 15mm Hg, valve area 1.5cm2, severity ratio 0.47). There is mild aortic regurgitation. 5) The right ventricular systolic pressure is estimated to be at least 31 mmHg based on an estimated right atrial pressure of 3 mm Hg. 6) Compaed to the echo done 03/23/2019, no significant change in aortic stenosis. Procedure: A two-dimensional transthoracic echocardiogram with color flow and Doppler was performed. The study quality was technically difficult. Comparison is made with the echocardiogram of 03/23/2019. The heart rate ranged between 85-105 bpm during the study. Left Ventricle: The left ventricle is normal in size. Left ventricular wall thickness is mildly increased. The ejection fraction is estimated to be 60- 65%. Left ventricular systolic function appears normal without focal wall motion abnormalities. Diastolic parameters suggest a relaxation abnormality of the left ventricle, consistent with probable normal filling pressures. Right Ventricle: The right ventricle grossly appears normal in size with probable normal systolic function. Atria: The left atrium is mildly dilated. The right atrium is normal in size. There is no Doppler evidence for an interatrial shunt. Mitral Valve: There is moderate mitral annular calcification. The mitral valve leaflets appear mildly thickened, but open well. There is no mitral valve stenosis. There is trace mitral regurgitation. Aortic Valve: The aortic valve is not well visualized. The aortic valve is mildly calcified. The peak aortic velocity is 2.5 m/sec. The aortic valve mean gradient is 15 mmHg. The calculated aortic valve area is 1.5 cm2. There is mild to moderate aortic stenosis. There is mild aortic regurgitation. Tricuspid Valve: The tricuspid valve is normal in structure and function. There is mild tricuspid regurgitation. The right ventricular systolic pressure is estimated to be at least 31 mmHg based on an estimated right atrial pressure of 3 mm Hg. Pulmonic Valve: The pulmonic valve leaflets are thin and pliable; valve motion is normal. There is mild pulmonic regurgitation. Great Vessels: The aortic root is normal size. The ascending aorta is at the upper limits of normal in size. The IVC is of normal diameter and collapses greater than 50% with a sniff. This suggests a low right atrial pressure of 3 mm Hg. Pericardium/ Pleura There is no pericardial effusion. There is no pleural effusion. MMode/2D Measurements & Calculations LVIDd: 3.9 cm LVOT diam: 2.0 cm LVIDs: 2.5 cm Ao root diam: 3.1 cm FS: 37.2 % asc Aorta Diam: 3.5 cm IVSd: 1.1 cm Ao Arch Diam (Prox Trans): 2.4 cm LVPWd: 1.1 cm LV weathers. diameter/BSA (cm/m^2): 1.9 LV sys. diameter/BSA (cm/m^2): 1.2 LA A2 area: 25.9 cm2 RA long axis: 4.6 cm LA A4 area: 17.7 cm2 RA area: 13.6 cm2 LA length (vol): 5.5 cm RA vol: 33.9 ml LA vol: 71.2 ml RA : 15.9 ml/m2 LA vol index: 33.5 ml/m2 IVC diam: 1.2 cm RVD1 (basal): 3.2 cm TAPSE: 1.8 cm Doppler Measurements & Calculations Ao V2 max: 252.1 cm/sec LVOT Max Kory: 117.3 cm/sec Ao V2 mean: 183.2 cm/sec LV V1 max P.5 mmHg Ao max P.4 mmHg LV V1 VTI: 20.4 cm Ao mean P.7 mmHg EMILE(I,D): 1.5 cm2 Ao V2 VTI: 43.9 cm EMILE(V,D): 1.5 cm2 sev ratio: 0.47 EMILE indexed to BSA (cm^2/m^2): 0.71 MV E max kory: 93.4 cm/sec TR max kory: 260.2 cm/sec MV A max kory: 157.3 cm/sec TR max P.3 mmHg MV E/A: 0.59 PA V2 max: 56.7 cm/sec Med Peak E' Kory: 6.8 cm/sec PA V2 mean: 34.8 cm/sec E/E' med: 13.7 PA mean P.60 mmHg Lat Peak E' Kory: 6.3 cm/sec PA pr(Accel): 41.3 mmHg E/E' lat: 14.9 E/e' average: 14.3 MV dec time: 0.29 sec MVA(VTI): 2.1 cm2 MV V2 mean: 86.7 cm/sec SV(LVOT): 66.3 ml MV mean P.5 mmHg MV V2 VTI: 31.7 cm Reading Physician:04:[id number] PM
== END ==
PROVIDERS: PCP Internal Medicine; Referring Provider Internal Medicine; Visit Provider Internal Medicine Cardiovascular Disease
DX: I08.2 Rheumatic disorders of both aortic and tricuspid valves (principal); R06.09 Other forms of dyspnea
CPT/HCPCS: 93306

== ENCOUNTER 2020-08-02 08:35 | Emergency (ER) | payer MEDICARE, OTHER, SELFPAY ==
[2019-03-21 16:36] VITALS: BMI 41.2
[2020-08-02] VITALS (24 sets, daily range): BP systolic 73–137; BP diastolic 49–74; PULSE 78–108; RESP 18–29; TEMP 36.3; O2SAT 83–99; BMI 42.0
--- NOTE | 2020-08-02 08:44 | DI.RAD.S_ITS ---
PROCEDURE: XR CHEST 1V INDICATIONS: fall, weakness TECHNIQUE: One view of the chest was acquired. COMPARISON: [facility], CR, XR CHEST 2V, 12/24/2019, 8:57. FINDINGS: Surgical changes and devices: Partially visualized cervical spinal fixation hardware Lungs and pleura: Lungs are clear. No pleural effusions or pneumothorax. Mediastinum: Mediastinal contours appear normal. Heart size is normal. Bones and chest wall: No suspicious bony lesions. Overlying soft tissues appear unremarkable. IMPRESSION: No acute disease. Dictated by: Yifan Yousif M.D. on 08/02/2020 at 8:58 Approved by: Yifan Yousif M.D. on 08/02/2020 at 8:59
--- NOTE | 2020-08-02 08:45 | ED_ITS ---
HPI - Dizziness General Chief Complaint: Weakness Stated Complaint: DIZZY WHEN SHE GETS UP,HASN'T PEED IN 3 DAYS,FALLS Time Seen by Provider: 08/02/20 08:35 Source: patient and family Mode of arrival: Wheelchair Limitations: no limitations History of Present Illness HPI Narrative: 80-year-old female nonsmoker with history of chronic neck pain presents with family in the chief complaint of dizziness upon standing with 3 associated falls and a lack of urine output for the past 3 days. She denies nausea, vomiting or diarrhea. She denies any medication or dietary change. She takes no diuretics. She states that she becomes dizzy and lightheaded when standing up despite drinking significant amounts of fluid. She has had no fever chills. She denies any chest pain or shortness of breath. She denies any head, neck or back pain. She denies any pain in her extremities. MD complaint: dizziness and lightheadedness Onset (ago): day(s) Timing: gradual onset Description: lightheadedness History of similar episodes: No History of trauma: No Severity: mild Relieving factors: rest Exacerbating factors: position Associated symptoms: denies other symptoms Related Data Home Medications Medication Instructions Recorded Confirmed cephalexin [Keflex] 500 mg PO HS #0 06/22/17 03/21/19 allopurinol 300 mg tablet 300 mg PO BEDTIME 03/08/18 03/21/19 simvastatin 20 mg tablet 20 mg PO BEDTIME 03/08/18 03/21/19 insulin glargine 100 unit/mL (3 24 unit SUBCUT BEDTIME ml 10/17/18 03/21/19 mL) subcutaneous pen metformin 500 mg tablet 500 mg PO DAILY 30 Days tab 10/17/18 03/21/19 aspirin 81 mg PO DAILY 03/18/19 03/21/19 gabapentin 2 tab PO BEDTIME 03/18/19 03/21/19 Previous Rx's Medication Instructions Recorded diazepam 2 mg PO Q4HR PRN #12 tab 03/22/19 docusate sodium [DOK] 100 mg PO BID PRN #40 cap 03/22/19 hydrocodone-acetaminophen 1 tab PO Q4HR PRN #20 tab 03/22/19 nitroglycerin [Nitrostat] See Rx Instructions .ROUTE 03/28/19 .COMPLEX PRN #10 tab Allergies Allergy/AdvReac Type Severity Reaction Status Date / Time Sulfa (Sulfonamide Allergy Severe RASH Verified 08/02/20 08:47 Antibiotics) [SULFA (SULFONAMIDE ANTIBIOTICS)] diphenhydramine AdvReac Severe MAKES ME Verified 08/02/20 08:47 [From BENADRYL] CRAZY hydromorphone [From DILAUDID] AdvReac Severe HALLUCINATIONS, Verified 08/02/20 08:47 AGITATION, MEMORY LOSS Iodinated Contrast Media AdvReac Severe HEART Verified 08/02/20 08:47 [IODINATED CONTRAST MEDIA - RACING, IV DYE] SNYCOPE, HOT meperidine [From DEMEROL] AdvReac Intermediate NAUSEA/VOMI Verified 08/02/20 08:47 TING Review of Systems Constitutional Constitutional: Denies chills, Denies fatigue, Denies fever(s), Denies frequent falls, Denies lethargy and Reports weakness Eyes Eyes: Denies change in vision, Denies eye discharge, Denies irritation and Denies loss of vision ENT Ears, Nose, Mouth, and Throat: Denies change in voice, Denies dizziness, Denies neck pain, Denies sore throat and Denies throat swelling Cardiovascular Cardiovascular: Denies chest pain, Denies irregular heart rhythm, Reports lightheadedness, Denies palpitations, Denies dyspnea, Denies dyspnea on exertion and Denies orthopnea Respiratory Respiratory: Denies cough, Denies dyspnea, Denies dyspnea on exertion and Denies wheezing Gastrointestinal Gastrointestinal: Denies abdominal pain, Denies change in bowel habits, Denies diarrhea, Denies nausea and Denies vomiting Genitourinary Genitourinary: Reports difficulty voiding Musculoskeletal Musculoskeletal: Denies neck pain and Denies numbness Integumentary/Breasts Skin/Breast: Denies pruritus, Denies erythema, Denies rash and Denies wounds Neurologic Neurologic: Denies behavioral changes, Denies confusion, Denies dizziness, Denies frequent falls, Denies loss of vision, Denies numbness and Reports weakness Psychiatric Psychiatric: Denies anxiety, Denies behavioral changes, Denies confusion, Denies depression, Denies homicidal ideation and Denies suicidal ideation Endocrine Endocrine: Denies fatigue, Denies flushing and Denies palpitations Hematologic/Lymphatic Hematologic/Lymphatic: Denies easy bruising Allergic/Immunologic Allergic/Immunologic: Denies urticaria, Denies throat swelling and Denies wheezing Patient History Medical History Anemia (Acute) Arthritis (Acute) Chronic UTI (Acute) Diabetes mellitus, type II (Acute) Encephalitis (Acute ~1984) Gout (Acute) Hearing impaired (Acute) HTN (hypertension) (Acute) Numbness (Acute) Osteoarthritis (Acute) Sleep apnea (Acute) Sterilization (Acute ~1969) Surgical History History of arthroplasty of left knee (Acute 06/03/15) History of arthroplasty of right knee (Acute ~2013) History of bilateral salpingo-oophorectomy (BSO) (Acute ~10/2015) History of cataract removal with insertion of prosthetic lens History of knee replacement (Deleted) History of lumbar fusion (Acute ~1995) History of lumbar laminectomy for spinal cord decompression (Acute ~2003) Hx of tonsillectomy (Acute) Status post endometrial ablation (~1990) Status post epidural steroid injection (Acute) Family History Mother No problems noted. Social History household members: family Smoking Status: Never smoker Smoking Status: Never smoker Substance Use Type: does not use and other Exam Narrative Exam Narrative: GENERAL: [80] year old patient appears stated age. Well- nourished, well-developed patient, in mild distress. Significantly weak, requires to assistance to get her into the car. HEAD: Atraumatic. Normocephalic. EYES: Pupils equal round and reactive. Extraocular motions intact. No scleral icterus. No injection or drainage. ENT: Dry mucous membranes, Nose without bleeding, purulent drainage. Throat without erythema, tonsillar hypertrophy or exudate. Airway patent. NECK: Trachea midline. Non tender CARDIOVASCULAR: Regular rate and rhythm without murmurs, gallops, or rubs. RESPIRATORY: Clear to auscultation. Breath sounds equal bilaterally. No wheezes, rales, or rhonchi. GASTROINTESTINAL: Abdomen soft, non-tender, nondistended. EXTREMITIES: No edema or joint tenderness. BACK: Nontender without deformity or crepitance. No flank tenderness. NEURO: AOx3. SKIN: Poor skin turgor No rash or erythema of visible areas Initial Vital Signs Initial Vital Signs: Vital Signs Temperature 97.3 F L 08/02/20 08:43 Pulse Rate 89 08/02/20 08:43 Respiratory Rate 18 08/02/20 08:43 Blood Pressure 112/52 L 08/02/20 08:43 Pulse Oximetry 93 08/02/20 08:43 Course Course Course Narrative: Fractional Excretion of Sodium (FENa) from [employer] on 08/02/2020 All calculations should be rechecked by clinician prior to use RESULT SUMMARY: 1.4 % FENa Intrinsic e.g. ATN, AIN, glomerulonephritides INPUTS: Serum sodium ?> 130 mEq/L Serum creatinine ?> 7.06 mg/dL Urine sodium ?> 30 mEq/L Urine creatinine ?> 120 mg/dL Orders Ordered: ED Orders 08/02/20 08:44 XR chest 1V Stat EKG-12 Lead Stat 08/02/20 09:47 Complete Blood Count AUTO DIFF Stat Comprehensive Metabolic Panel Stat Troponin & CK Cardiac Panel Stat 08/02/20 10:34 US renal complete Stat 08/02/20 11:05 COVID19 -ED/INPAT/OR/L&D Stat 08/02/20 11:14 Basic Metabolic Panel Stat 08/02/20 13:07 Creatinine Urine Random Stat Sodium Urine Random Stat Total Protein Urine Random Stat Urinalysis and Microscopic Stat Urine Culture Stat Sodium Chloride (Normal Saline 0.9%) 1,000 mls @ 250 mls/hr IV BOLUS ONE Stop: 08/02/20 17:17 Last Admin: 08/02/20 13:24 Dose: 250 mls/hr Documented by: SATNAM Discontinued Medications Sodium Chloride (Normal Saline 0.9%) 1,000 mls @ 1,000 mls/hr IV BOLUS ONE Stop: 08/02/20 09:42 Last Infusion: 08/02/20 12:16 Dose: 0 mls/hr Documented by: Admin: 08/02/20 09:45 Dose: 1,000 mls/hr Documented by: NOMI Sodium Chloride (Normal Saline 0.9%) 1,000 mls @ 1,000 mls/hr IV BOLUS ONE Stop: 08/02/20 13:16 Last Infusion: 08/02/20 13:16 Dose: 0 mls/hr Documented by: Admin: 08/02/20 12:22 Dose: 1,000 mls/hr Documented by: NICK Reevaluation(s) Reevaluation #1: some delay in getting labs, however she is feeling a little better after fluids. Upon receipt of creatinine, renal US and repeat labs ordered. Time: 10:46 Consultations Consultation #1: discussed with hospitalist here at [facility]. Recommends transfer to facility with nephrology Consultation #2: paged to Dr. Farrell ([facility] Nephro). She recommends fluid hydration, follow labs. No need to transfer today as she is not a dialysis candidate today. patient has been seen and evaluated by our hospitalist, after the exam and chart review she is most appropriate to be at facility with nephro given her rapid onset and presence of comorbidities such as moderate aortic stenosis which will make her fluid balance more difficult Time: 10:53 Consultation #3: call back to [facility] to speak with hospitalist. Dr. Lomeli who is happy to accept Vital Signs Vital signs: Vital Signs - 8 hr 08/02/20 08:43 08/02/20 08:44 08/02/20 09:00 Temperature 97.3 F L Pulse Rate 87 90 84 Pulse Rate [Orthostatic Lying] Pulse Rate [Orthostatic Sitting] Pulse Rate [Orthostatic Standing] Respiratory Rate 18 26 H Blood Pressure 112/52 L 112/52 L Blood Pressure [Orthostatic Lying] Blood Pressure [Orthostatic Sitting] Blood Pressure [Orthostatic Standing] Pulse Oximetry 98 98 98 08/02/20 09:30 08/02/20 10:00 08/02/20 10:11 Temperature Pulse Rate 82 80 Pulse Rate [Orthostatic Lying] Pulse Rate [Orthostatic Sitting] Pulse Rate [Orthostatic Standing] Respiratory Rate 28 H 23 Blood Pressure 73/49 L Blood Pressure [Orthostatic Lying] Blood Pressure [Orthostatic Sitting] Blood Pressure [Orthostatic Standing] Pulse Oximetry 97 97 08/02/20 10:12 08/02/20 10:14 08/02/20 10:22 Temperature Pulse Rate 91 H 100 H 108 H Pulse Rate [Orthostatic Lying] Pulse Rate [Orthostatic Sitting] Pulse Rate [Orthostatic Standing] Respiratory Rate 25 H 29 H Blood Pressure 104/61 87/55 L 137/74 Blood Pressure [Orthostatic Lying] Blood Pressure [Orthostatic Sitting] Blood Pressure [Orthostatic Standing] Pulse Oximetry 99 83 L 95 08/02/20 10:30 08/02/20 10:34 08/02/20 11:00 Temperature Pulse Rate 87 84 Pulse Rate [Orthostatic Lying] 83 Pulse Rate [Orthostatic Sitting] 91 H Pulse Rate [Orthostatic Standing] 105 H Respiratory Rate 23 25 H Blood Pressure Blood Pressure [Orthostatic Lying] 112/52 L Blood Pressure [Orthostatic Sitting] 104/61 Blood Pressure [Orthostatic Standing] 137/74 Pulse Oximetry 98 98 08/02/20 11:42 08/02/20 12:00 08/02/20 12:01 Temperature Pulse Rate 91 H 80 82 Pulse Rate [Orthostatic Lying] Pulse Rate [Orthostatic Sitting] Pulse Rate [Orthostatic Standing] Respiratory Rate 24 24 24 Blood Pressure 110/53 L 93/50 L Blood Pressure [Orthostatic Lying] Blood Pressure [Orthostatic Sitting] Blood Pressure [Orthostatic Standing] Pulse Oximetry 97 98 98 08/02/20 12:05 08/02/20 12:30 08/02/20 13:00 Temperature Pulse Rate 82 86 81 Pulse Rate [Orthostatic Lying] Pulse Rate [Orthostatic Sitting] Pulse Rate [Orthostatic Standing] Respiratory Rate 26 H 27 H 21 Blood Pressure 100/55 L 107/55 L 102/52 L Blood Pressure [Orthostatic Lying] Blood Pressure [Orthostatic Sitting] Blood Pressure [Orthostatic Standing] Pulse Oximetry 93 98 99 08/02/20 13:30 08/02/20 13:34 08/02/20 14:00 Temperature Pulse Rate 82 79 78 Pulse Rate [Orthostatic Lying] Pulse Rate [Orthostatic Sitting] Pulse Rate [Orthostatic Standing] Respiratory Rate 22 23 Blood Pressure 99/50 L 108/55 L 107/56 L Blood Pressure [Orthostatic Lying] Blood Pressure [Orthostatic Sitting] Blood Pressure [Orthostatic Standing] Pulse Oximetry 95 98 99 08/02/20 14:30 Temperature Pulse Rate 80 Pulse Rate [Orthostatic Lying] Pulse Rate [Orthostatic Sitting] Pulse Rate [Orthostatic Standing] Respiratory Rate 25 H Blood Pressure Blood Pressure [Orthostatic Lying] Blood Pressure [Orthostatic Sitting] Blood Pressure [Orthostatic Standing] Pulse Oximetry 98 MDM - Dizziness Lab Data Result diagrams: 08/02/20 09:47 08/02/20 11:14 Labs: Lab Results 08/02/20 08/02/20 08/02/20 Range/Units 09:47 09:47 11:05 WBC 13.5 H (4.5-11.0) X10^3/uL RBC 4.07 (4.0-5.2) X10^6/uL Hgb 11.3 L (12.0-16.0) g/dL Hct 35.6 L (36-46) % MCV 87.4 (80-100) fL MCH 27.8 (26-34) PG MCHC 31.8 (30-36) % RDW 18.0 H (11.6-14.8) % Plt Count 173 (150-400) X10^3/uL Neut % (Auto) 74.7 (50-75) % Lymph % (Auto) 17.3 L (25-40) % [place] % (Auto) 6.1 (3-14) % Eos % (Auto) 1.4 L (2-4) % Baso % (Auto) 0.5 (0-2) % Neut # (Auto) 90065 H (2919-2545) /uL Lymph # (Auto) 2300 (3121-6188) /uL [place] # (Auto) 800 (0-900) /uL Eos # (Auto) 200 (0-450) /uL Baso # (Auto) 100 (0-100) /uL Sodium 129 L (137-145) mmol/L Potassium 3.7 (3.4-5.1) mmol/L Chloride 92 L (98-107) mmol/L Carbon Dioxide 20 L (22-32) mmol/L BUN 65 H (7-17) mg/dL Creatinine 7.06 H (0.52-1.04) mg/dL Estimated GFR 5.6 L (>60) mL/min BUN/Creatinine Ratio 9.2 (6-22) Glucose 253 H (80-110) mg/dL Calcium 8.1 L (8.4-10.2) mg/dL Total Bilirubin 0.7 (0.2-1.3) mg/dL AST 34 (14-36) IU/L ALT 27 (<35) IU/L Alkaline Phosphatase 144 H (38-126) U/L Total Creatine Kinase 219 H (30-135) U/L CK-MB (CK-2) 1.81 (<2.37) ng/mL CK-MB (CK-2) Rel Index 0.8 L (1.5-5.0) % Troponin I 0.014 (0.01-0.034) ng/mL Total Protein 6.5 (6.3-8.2) g/dL Albumin 3.7 (3.5-5.0) g/dL Globulin 2.8 (1.7-4.1) g/dL Albumin/Globulin Ratio 1.3 (1.0-2.8) Urine Color Urine Appearance Urine pH (4.5-8.0) Ur Specific [place] (1.000-1.035) Urine Protein (Negative) Urine Glucose (UA) (Negative) g/dL Urine Ketones (NEGATIVE) Urine Occult Blood (Negative) Urine Nitrate (Negative) Urine Bilirubin (NEGATIVE) Urine Urobilinogen (0.2) E.U./dL Ur Leukocyte Esterase (NEGATIVE) Urine RBC (0-5/HPF) Urine WBC (0-5/HPF) Ur Squamous Epith Cells (0-5/HPF) Amorphous Sediment Urine Bacteria (None) Urine Mucus (Negative) Ur Culture Indicated? U Random Total Protein (0-12) mg/dL Ur Random Sodium (30-90) mmol/L Urine Creatinine mg/dL COVID-19 PCR Negative (Negative) 08/02/20 08/02/20 08/02/20 Range/Units 11:14 13:07 13:07 WBC (4.5-11.0) X10^3/uL RBC (4.0-5.2) X10^6/uL Hgb (12.0-16.0) g/dL Hct (36-46) % MCV (80-100) fL MCH (26-34) PG MCHC (30-36) % RDW (11.6-14.8) % Plt Count (150-400) X10^3/uL Neut % (Auto) (50-75) % Lymph % (Auto) (25-40) % [place] % (Auto) (3-14) % Eos % (Auto) (2-4) % Baso % (Auto) (0-2) % Neut # (Auto) (6523-8781) /uL Lymph # (Auto) (7712-7621) /uL [place] # (Auto) (0-900) /uL Eos # (Auto) (0-450) /uL Baso # (Auto) (0-100) /uL Sodium 130 L (137-145) mmol/L Potassium 3.8 (3.4-5.1) mmol/L Chloride 94 L (98-107) mmol/L Carbon Dioxide 19 L (22-32) mmol/L BUN 65 H (7-17) mg/dL Creatinine 7.02 H (0.52-1.04) mg/dL Estimated GFR 5.7 L (>60) mL/min BUN/Creatinine Ratio 9.3 (6-22) Glucose 225 H (80-110) mg/dL Calcium 7.9 L (8.4-10.2) mg/dL Total Bilirubin (0.2-1.3) mg/dL AST (14-36) IU/L ALT (<35) IU/L Alkaline Phosphatase (38-126) U/L Total Creatine Kinase (30-135) U/L CK-MB (CK-2) (<2.37) ng/mL CK-MB (CK-2) Rel Index (1.5-5.0) % Troponin I (0.01-0.034) ng/mL Total Protein (6.3-8.2) g/dL Albumin (3.5-5.0) g/dL Globulin (1.7-4.1) g/dL Albumin/Globulin Ratio (1.0-2.8) Urine Color Yellow Urine Appearance Cloudy Urine pH 5.5 (4.5-8.0) Ur Specific [place] 1.020 (1.000-1.035) Urine Protein 2+ H (Negative) Urine Glucose (UA) Trace H (Negative) g/dL Urine Ketones Trace H (NEGATIVE) Urine Occult Blood 2+ H (Negative) Urine Nitrate Negative (Negative) Urine Bilirubin Negative (NEGATIVE) Urine Urobilinogen 0.2 (0.2) E.U./dL Ur Leukocyte Esterase Trace H (NEGATIVE) Urine RBC 1-5/hpf (0-5/HPF) Urine WBC 1-5/hpf (0-5/HPF) Ur Squamous Epith Cells 10-30 /hpf H (0-5/HPF) Amorphous Sediment 1+ Urine Bacteria Occasional (0-1) (None) Urine Mucus 1+ H (Negative) Ur Culture Indicated? Specimen cultured U Random Total Protein 140 H (0-12) mg/dL Ur Random Sodium 30 (30-90) mmol/L Urine Creatinine 120.0 mg/dL COVID-19 PCR (Negative) Imaging Data US - Renal: Radiologist's Impression: [address] [address] Ultrasound Report Signed Patient: Kaela Pedraza JMR#: [id number] : 2Acct:[id number] Age/Sex: 80 / FDate of Service: 08/02/20 Loc: ED Accession Number: [id number] Procedure: US renal complete Ordering Provider: Dago Gallegos D.O. PROCEDURE: US RENAL COMPLETE INDICATIONS: severe acute renal failure TECHNIQUE: Real-time scanning was performed of the kidneys and bladder, with image documentation. COMPARISON: None. FINDINGS: Kidneys: Kidneys are normal in size. Right kidney measures 10.6 cm long; left kidney measures 12.4 cm long. Right renal cortical thickness is 1.3 cm; left renal cortical thickness is 1.3 cm. Renal cortical echotexture is normal. No hydronephrosis or nephrolithiasis. No suspicious solid mass lesions. Bladder: The patient had voided prior to the exam and thus prevoid and postvoid images were not obtained. No ureteral jets are noted with color Doppler interrogation. (Of note, ureteral jets may not be detectable in up to 25% of cases due to insufficient differences in specific gravity between ureteral and bladder urine). Miscellaneous: No free pelvic fluid. IMPRESSION: 1. Normal bilateral kidneys. No hydronephrosis. 2. The patient had voided prior to the exam and the bladder was empty. Dictated by: Ryan Alfonso M.D. on 08/02/2020 at 11:31 Approved by: Ryan Alfonso M.D. on 08/02/2020 at 11:38 Discharge Plan Departure Patient Disposition: [facility] Clinical Impression: Acute kidney injury Prescriptions: No Action cephalexin [Keflex] 500 MG capsule 500 mg PO HS Qty: 0 RF: 0 aspirin 81 mg Tablet,Delayed Release (Dr/Ec) 81 mg PO DAILY RF: 0 gabapentin 600 mg tablet 2 tab PO BEDTIME RF: 0 docusate sodium [DOK] 100 mg Capsule 100 mg PO BID PRN (Reason: constipation) Qty: 40 RF: 0 hydrocodone-acetaminophen 5-325 mg Tablet 1 tab PO Q4HR PRN (Reason: Pain, Moderate (4-6)) Qty: 20 RF: 0 diazepam 2 mg Tablet 2 mg PO Q4HR PRN (Reason: Spasms) Qty: 12 RF: 0 nitroglycerin [Nitrostat] 0.4 mg Tablet, Sublingual See Rx Instructions .ROUTE .COMPLEX PRN (Reason: Chest Pain) Qty: 10 RF: 0 allopurinol 300 mg tablet 300 mg PO BEDTIME RF: 0 simvastatin 20 mg tablet 20 mg PO BEDTIME RF: 0 insulin glargine [Basaglar KwikPen U-100 Insulin] 100 unit/mL (3 mL) insulin pen 24 unit SUBCUT BEDTIME RF: 0 metformin 500 mg tablet 500 mg PO DAILY 30 Days RF: 0 Referrals: Jim Malhotra MD [Primary Care Provider] -
[2020-08-02] MEDS: SODIUM CHLORIDE 0.9% 1,000 ML 1000 ML IV ×2 (09:45→12:22)
[2020-08-02 09:55] LABS: Add Manual Diff / Slide Review NO; Basophils Absolute Auto 100 /uL (0-100); Basophils Percent Auto 0.5 % (0-2); Eosinophils Absolute Auto 200 /uL (0-450); Eosinophils Percent Auto 1.4 % (2-4); Hematocrit 35.6 % (36-46); Hemoglobin 11.3 g/dL (12.0-16.0); Lymphocytes Absolute Auto 2300 /uL (1100-4500); Lymphocytes Percent Auto 17.3 % (25-40); Mean Corpuscular HGB Conc 31.8 % (30-36); Mean Corpuscular Hemoglobin 27.8 PG (26-34); Mean Corpuscular Volume 87.4 fL (80-100); Monocytes Absolute Auto 800 /uL (0-900); Monocytes Percent Auto 6.1 % (3-14); Neutrophils Absolute Auto 10100 /uL (1500-7000); Neutrophils Percent Auto 74.7 % (50-75); Platelet Count 173 X10^3/uL (150-400); Red Blood Cell Count 4.07 X10^6/uL (4.0-5.2); White Blood Cell Count 13.5 X10^3/uL (4.5-11.0)
--- NOTE | 2020-08-02 10:04 | PC.NURSE ---
drawn by lab
[2020-08-02 10:10] LABS: Alanine Aminotransferase 27 IU/L (<35); Albumin 3.7 g/dL (3.5-5.0); Albumin Globulin Ratio 1.3 (1.0-2.8); Alkaline Phosphatase 144 U/L (38-126); Aspartate Aminotransferase 34 IU/L (14-36); BUN Creatinine Ratio 9.2 (6-22); Bilirubin Total 0.7 mg/dL (0.2-1.3); Blood Urea Nitrogen 65 mg/dL (7-17); Calcium 8.1 mg/dL (8.4-10.2); Carbon Dioxide 20 mmol/L (22-32); Chloride 92 mmol/L (98-107); Creatine Kinase 219 U/L (30-135); Estimated Glomerular Filt Rate 5.6 mL/min (>60); Globulin 2.8 g/dL (1.7-4.1); Glucose 253 mg/dL (80-110); HEMOLYSIS < 15 (0-50); Potassium 3.7 mmol/L (3.4-5.1); Sodium 129 mmol/L (137-145); Total Protein 6.5 g/dL (6.3-8.2)
[2020-08-02 10:21] LABS: Troponin I 0.014 ng/mL (0.01-0.034)
[2020-08-02 10:25] LABS: CKMB % Relative Index 0.8 % (1.5-5.0); Creatine Kinase MB 1.81 ng/mL (<2.37)
--- NOTE | 2020-08-02 10:30 | PC.NURSE ---
Patient provided a bedside commode. 900ml oatmeal consistency loose stool noted with a considerable amount that missed the commode and was on the floor and the patient. [facility] provided tin and skin care and situated patient back onto the stretcher.
--- NOTE | 2020-08-02 10:34 | DI.US.S_ITS ---
PROCEDURE: US RENAL COMPLETE INDICATIONS: severe acute renal failure TECHNIQUE: Real-time scanning was performed of the kidneys and bladder, with image documentation. COMPARISON: None. FINDINGS: Kidneys: Kidneys are normal in size. Right kidney measures 10.6 cm long; left kidney measures 12.4 cm long. Right renal cortical thickness is 1.3 cm; left renal cortical thickness is 1.3 cm. Renal cortical echotexture is normal. No hydronephrosis or nephrolithiasis. No suspicious solid mass lesions. Bladder: The patient had voided prior to the exam and thus prevoid and postvoid images were not obtained. No ureteral jets are noted with color Doppler interrogation. (Of note, ureteral jets may not be detectable in up to 25% of cases due to insufficient differences in specific gravity between ureteral and bladder urine). Miscellaneous: No free pelvic fluid. IMPRESSION: 1. Normal bilateral kidneys. No hydronephrosis. 2. The patient had voided prior to the exam and the bladder was empty. Dictated by: Ryan Alfonso M.D. on 08/02/2020 at 11:31 Approved by: Ryan Alfonso M.D. on 08/02/2020 at 11:38
[2020-08-02 11:27] LABS: COVID19 -Nasal RAPID Negative (Negative)
[2020-08-02 11:41] LABS: BUN Creatinine Ratio 9.3 (6-22); Blood Urea Nitrogen 65 mg/dL (7-17); Calcium 7.9 mg/dL (8.4-10.2); Carbon Dioxide 19 mmol/L (22-32); Chloride 94 mmol/L (98-107); Estimated Glomerular Filt Rate 5.7 mL/min (>60); Glucose 225 mg/dL (80-110); HEMOLYSIS < 15 (0-50); Potassium 3.8 mmol/L (3.4-5.1); Sodium 130 mmol/L (137-145)
--- NOTE | 2020-08-02 13:00 | PC.NURSE ---
Catheter placment attempted. Catheter advanced 2 inches and would not advance further. Patient states if feels like the garcia is in the right spot. Patient asked to push like she needed to urinate with no ability to advance the catheter. No more attempts made by this nurse. Charge nurse notified and she stated she would place garcia
[2020-08-02 13:24] LABS: Appearance Urine UA CLOUDY; Bilirubin Urine UA NEGATIVE (NEGATIVE); Color Urine UA YELLOW; Glucose Urine UA TRACE g/dL (Negative); Ketones Urine UA TRACE (NEGATIVE); Leukocyte Esterase Urine UA TRACE (NEGATIVE); Nitrite Urine UA NEGATIVE (Negative); Occult Blood Urine UA 2+ (Negative); Protein Urine UA 2+ (Negative); Urobilinogen Urine UA 0.2 E.U./dL (0.2)
[2020-08-02] MEDS: SODIUM CHLORIDE 0.9% 1,000 ML 250 ML IV (13:24)
[2020-08-02 13:32] LABS: pH Urine UA 5.5 (4.5-8.0)
[2020-08-02 13:45] LABS: Protein (Total) Urine Random 140 mg/dL (0-12); Sodium Urine Random 30 mmol/L (30-90)
[2020-08-02 13:47] LABS: Amorphous Sediment Urine 1+; Bacteria Urine Occasional (0-1); RBC Urine 1-5/HPF (0-5/HPF); Squamous Epithelial Cell Urine 10-30 /HPF (0-5/HPF); WBC Urine 1-5/HPF (0-5/HPF)
[2020-08-02 13:48] LABS: Culture Indicated Urine Specimen Cultured; Mucus Urine 1+ (Negative)
--- NOTE | 2020-08-02 15:31 | PC.NURSE ---
IV fluids of NS continued w/ NWA transport @ 250 cc/hour.
== END 2020-08-02 15:41 | disposition short-term general hospital (02) ==
PROVIDERS: Emergency Provider Emergency Medicine; PCP Internal Medicine
DX: N17.9 Acute kidney failure, unspecified (principal); R33.9 Retention of urine, unspecified; R42 Dizziness and giddiness; R53.1 Weakness; R07.9 Chest pain, unspecified
CPT/HCPCS: 36415; 51701; 71045; 76770; 80048; 80053; 81001; 82550; 82553; 82570; 84156; 84300; 84484; 85025; 87086; 87635; 93005; 93010; 96360; 96361; 99284

== ENCOUNTER → 2023-10-22 12:39 | Outpatient (CLI) | payer MEDICARE, OTHER, SELFPAY ==
[2019-03-21 16:36] VITALS: BMI 41.2
--- NOTE | 2023-10-22 12:42 | DI.MRI.S_ITS ---
PROCEDURE: MR LUMBAR SPINE WO CON INDICATIONS: SVH, LBP s/p L3-5 fusion TECHNIQUE: Noncontrast sagittal T1 spin echo and T2 fast echo, sagittal STIR, and T2 fast spin echo through the lumbar spine. In cases with scoliosis, additional coronal T2 fast spin echo may be performed. COMPARISON: None. FINDINGS: Image quality: Artifact from posterior spinal fixation hardware. Alignment and Curvature: There is normal bony alignment. Bone Marrow: L3 through L5 posterior spinal fixation. Marrow is of normal overall signal. No acute vertebral body compression fractures. Spinal Cord: Conus medullaris terminates at the L1 level. Visualized cord demonstrates normal signal and size. Paraspinous Soft Tissues: No paravertebral masses. T12-L1: Disc desiccation height loss. Posterior disc bulge. Facet arthropathy and thickening of ligamentum flavum. Moderate to severe central canal stenosis. Epidural lipomatosis. Mild bilateral neural foraminal stenosis. L1-L2: Disc desiccation height loss. Minimal disc bulge. No central canal stenosis. Unable to evaluate neural foramina secondary to hardware artifact. L2-L3: Significant hardware artifact limits evaluation. L3-L4: Postoperative changes. No central canal stenosis. No definite neural foraminal stenosis. Evaluation is limited secondary to hardware. L4-L5: Artifact limits evaluation. Postoperative changes. No definite central canal stenosis. No left neural foraminal stenosis. Unable to evaluate right neural foramina secondary to hardware artifact. L5-S1: Disc desiccation height loss. No central canal stenosis. Unable to evaluate neural foramina secondary to hardware artifact. IMPRESSION: 1. Significant hardware artifact limits evaluation. 2. Postsurgical changes from L3 through L5 posterior spinal fixation. 3. Degenerative changes appear most pronounced at T12-L1 with moderate to severe central canal stenosis and mild bilateral neural foraminal stenosis. Dictated by: Juan A Moe M.D. on 10/22/2023 at 16:30 Approved by: Juan A Moe M.D. on 10/22/2023 at 16:35
== END ==
PROVIDERS: PCP Student in an Organized Health Care Education/Training Program; Referring Provider Physical Medicine & Rehabilitation; Visit Provider Physical Medicine & Rehabilitation
DX: M48.061 Spinal stenosis, lumbar region without neurogenic claudication (principal); M47.815 Spondylosis without myelopathy or radiculopathy, thoracolumbar region; M46.96 Unspecified inflammatory spondylopathy, lumbar region; Z98.1 Arthrodesis status
CPT/HCPCS: 72148

== ENCOUNTER → 2023-11-22 11:36 | Outpatient (CLI) | payer MEDICARE, OTHER, SELFPAY ==
[2019-03-21 16:36] VITALS: BMI 41.2
--- NOTE | 2023-11-22 11:38 | DI.RAD.S_ITS ---
PROCEDURE: XR LUMBAR SPINE MIN 4V INDICATIONS: SVH, LBP S/P L3-5 FUSION TECHNIQUE: 5 views of the lumbar spine were acquired, including bilateral oblique views. COMPARISON: [facility], MR, MR LUMBAR SPINE WO CON, 10/22/2023, 13:34. FINDINGS: Bones: 5 nonrib-bearing vertebrae are present. Laminectomy and posterior hardware fusion with bilateral pedicle screws in L3 and L5 traversing L4. There is bone graft material also from L3 through L5. The hardware appears intact. No vertebral body fractures. Severe disc height loss T12 through S1. Near complete ankylosis L3 through L5. Grade 1 retrolisthesis T12-L1, L1-2, and L2-3 with posterior endplate spurs. No suspicious bony lesions. Soft tissues: Overlying bowel gas pattern is normal. No suspicious soft tissue calcifications. IMPRESSION: Intact L3 through L5 fusion. Multilevel disc height loss and upper lumbar retrolisthesis. Dictated by: Helena Kenny M.D. on 11/22/2023 at 16:03 Approved by: Helena Kenny M.D. on 11/22/2023 at 16:07
== END ==
PROVIDERS: PCP Student in an Organized Health Care Education/Training Program; Referring Provider Physical Medicine & Rehabilitation; Visit Provider Physical Medicine & Rehabilitation
DX: M48.061 Spinal stenosis, lumbar region without neurogenic claudication (principal); M51.36 Other intervertebral disc degeneration, lumbar region; M46.96 Unspecified inflammatory spondylopathy, lumbar region; M43.16 Spondylolisthesis, lumbar region; M54.12 Radiculopathy, cervical region; M48.02 Spinal stenosis, cervical region; E11.69 Type 2 diabetes mellitus with other specified complication; G47.30 Sleep apnea, unspecified; Z98.1 Arthrodesis status; Z96.653 Presence of artificial knee joint, bilateral
CPT/HCPCS: 72110; 99215

== ENCOUNTER 2023-12-25 12:04 | Outpatient (CLI) | payer MEDICARE, SELFPAY ==
[2019-03-21 16:36] VITALS: BMI 41.2
[2023-12-25] VITALS (8 sets, daily range): BP systolic 109–149; BP diastolic 56–88; PULSE 88–100; RESP 16–20; TEMP 36.5; O2SAT 95–98
--- NOTE | 2023-12-25 14:30 | DI.RAD.S_ITS ---
PROCEDURE: PAIN L INTERLAMINAR/CAUDAL INJ INDICATIONS: SPINAL STENOSIS COMPARISON: None. FINDINGS: Fluoroscopic spot filming was performed to verify placement of spinal needles at the right L5-S1 level(s), as labeled on the films. Appropriate location(s) of the needle tip(s) was confirmed by injection of iodinated contrast. Surgical fixation hardware noted. IMPRESSION: Fluoroscopic support for right L5-S1 transforaminal epidural steroid injection. Please see separate procedure note for further details. Dictated by: Parag De Dios M.D. on 12/25/2023 at 16:08 Approved by: Parag De Dios M.D. on 12/25/2023 at 16:09
[2023-12-25] MEDS: MIDAZOLAM 2 MG/2 ML VIAL IV (15:04)
[2023-12-25] MEDS: BUPIVACAINE 0.25% (PF) VIAL 2 ML INJ (15:10)
[2023-12-25] MEDS: iopamidoL 15 ML VIAL 3 ML INJ (15:10)
[2023-12-25] MEDS: DEXAMETHASONE 10 MG/ML VIAL INJ (15:11)
[2023-12-25] MEDS: BETAMETHASONE 30 MG/5 ML MDV 6 MG INJ (15:11)
--- NOTE | 2023-12-25 15:21 | P.PCN_ITS ---
Date/Time/Diagnoses Date of procedure: 12/25/23 Time of procedure: 15:22 Pre-procedure diagnosis: 1. HNP WITH RADICULAR FEATURES, 2. MULTILEVEL CENTRAL STENOSIS, Post-procedure diagnosis: same Procedure Notes Procedure: 1. FLUOROSCOPICALLY GUIDED CONTRAST CONTROLLED INTERLAMINAR EPIDURAL STEROID INJECTION - L5/S1 Indications: Kaela is referred by Dr. Mccoy for treatment of Bilateral Foraminal Stenosis L>R LE symptoms. Physician: Irwin Merino Total Fluoroscopy time (seconds): 7 Total sedation minutes: 14 Complications: none Procedure in detail & Post-procedure care: FINDINGS Multilevel Central Spinal Stenosis with Nerve Root Compression DESCRIPTION OF PROCEDURE Fluoroscopically guided, contrast-controlled L5/S1 translaminar epidural steroid injection. Following review of allergy and review of potential side effects and complications, including, but not necessarily limited to, infection, allergic reaction, local tissue breakdown, temporary as well as permanent nerve injury, paralysis, stroke and possible , the patient indicated that the patient understood and agreed to proceed. An informed consent document was signed by the patient, witnessed by a nurse, and placed in the patient's chart. Additionally, other treatment options including modalities, medications, and physical therapy were reviewed with the patient. After review of previous anaesthesic history and IV conscious sedation the patient was deemed safe to proceed with today?s procedure with IV conscious sedation as ASA class II designation. Safety time-out was performed to confirm patient ID, procedure to be performed and site of procedure. IV sedation was accomplished with a combination of 2mg of Versed administered by the RN after DO order, titrated to patient comfort during the course of the procedure while the patient remained responsive to all verbal commands. In the prone position, following sterile prep and drape of the lumbar region, the L5/S1 translaminar space was identified fluoroscopically. The skin was anesthetized via a 25-gauge, 1.5-inch needle with 1% lidocaine solution. At this point, a 22-gauge short bevel spinal needle was atraumatically introduced and advanced under fluoroscopic guidance into the region of the L5/S1 translaminar space. Depth was confirmed on lateral view. Radiological data, including multiple fluoroscopic views of the lumbar spine, reveal a spinal needle at the L5/S1 translaminar space. Lateral views then show placement of the needle in the epidural space. Subsequent views show contrast material flowing superiorly and inferiorly in the epidural space. No vascular or intrathecal uptake is observed. At this point, using loss of resistance technique with saline and air, the epidural space was entered. This was confirmed following negative aspiration with injection of approximately 1.5cc of Isovue 200, showing excellent epidural flow without vascular or intrathecal uptake. At this point, 1 cc of 1% lidoc arabella solution combined with 2cc or 10mg of dexamethasone and 6mg of betamethasone was injected without incident. The patent tolerated the procedure without signs of symptoms of complications prior to transfer to the recovery area for further monitoring. The patient was then transferred to the recovery area where they were observed for an appropriate period of time after the injection. The patient reported a VAS score of 6 prior to the procedure and a post-procedure VAS of 0. POST OP INSTRUCTIONS The patient was provided a Pain Log to continue to record their response to the target-specific procedure prior to follow-up visit with their referring physician. Additionally, specific post-injection care instructions and a contact number to our office were provided if concerns arise regarding possible complications associated with the procedure are suspected.
== END 2023-12-25 15:38 | disposition home or self-care (01) ==
PROVIDERS: PCP Student in an Organized Health Care Education/Training Program; Referring Provider Physical Medicine & Rehabilitation; Visit Provider Physical Medicine & Rehabilitation
DX: M51.17 Intervertebral disc disorders with radiculopathy, lumbosacral region (principal); M48.07 Spinal stenosis, lumbosacral region
CPT/HCPCS: 62323; 99152; J0702; J1100; J2250; J3490